=== PATIENT | female | born 1935 | race Caucasian/White ===

== ENCOUNTER 2017-03-21 22:02 | Outpatient (CLI) | payer MEDICARE, OTHER | END 2017-03-21 22:03 | disposition critical access hospital (66) | LOC: EMS 22:02 | PROVIDERS: ATTEND Surgery | DX: R51 Headache (principal); R29.810 Facial weakness; R47.81 Slurred speech | CPT/HCPCS: A0425; A0427 ==

== ENCOUNTER 2017-03-21 22:22 | Inpatient (IN) | payer MEDICARE, OTHER ==
--- NOTE | 2017-03-21 22:21 | ED Physician Documentation ---
PD HPI FOCAL NEURO - Stated complaint Stated Complaint: SLURRED SPEECH, LEFT FACIAL DROOP - History obtained from History obtained from: Patient, Family (son), EMS - History of Present Illness Timing - onset: Unknown (see below regarding timeframe) Time of symptom onset unknown: Time of onset unknown Severity of deficit: Mild Weakness: Face Baseline status: positive: A&OX3, ambulatory, indep Similar symptoms before: Has not had sx before Recently seen: Not recently seen - Additional information Additional information: Patient's son last saw patient at her baseline at 9 AM today before he went to work. Upon returning home 9:15 PM, he found his mother (patient) was acting oddly; answering questions slowly, making references to people that weren't there. Medics perceived a left facial droop which appears to have resolved by the time of my evaluation. Patient c/o frontal headache, mild chest discomfort that is midline without radiation. Review of Systems Constitutional: reports: Reviewed and negative Eyes: reports: Reviewed and negative Ears: reports: Reviewed and negative Nose: reports: Reviewed and negative Throat: reports: Reviewed and negative Cardiac: reports: Chest pain / pressure. denies: Palpitations Respiratory: reports: Reviewed and negative GI: reports: Reviewed and negative : reports: Reviewed and negative Skin: reports: Reviewed and negative Musculoskeletal: reports: Reviewed and negative Neurologic: reports: Confused, Altered mental status, Headache. denies: Generalized weakness, Focal weakness, Numbness PD PAST MEDICAL HISTORY - Past Medical History Past Medical History: Yes Other Past Medical History: "prediabetes" - Past Surgical History Past Surgical History: No - Present Medications Home Medications: Ambulatory Orders Medication Instructions Recorded Confirmed Naproxen Sodium [Aleve] 220 mg PO BID PRN 03/22/17 03/22/17 - Allergies Allergies/Adverse Reactions: Allergies Allergy/AdvReac Type Severity Reaction Status Date / Time Sulfa (Sulfonamide Allergy Unknown Verified 03/02/15 14:09 Antibiotics) - Living Situation Living Situation: reports: With family Living Arrangement: reports: At home - Social History Does the pt smoke?: No PD ED PE NORMAL - Vitals Vital signs reviewed: Yes - General General: Alert and oriented X 3, No acute distress, Well developed/nourished - HEENT HEENT: Atraumatic, PERRL, EOMI, Moist mucous membranes - Neck Neck: Supple, no meningeal sign - Cardiac Cardiac: RRR, No murmur - Respiratory Respiratory: No respiratory distress, Clear bilaterally - Abdomen Abdomen: Soft, Non tender - Back Back: No CVA TTP - Derm Derm: Normal color, Warm and dry - Extremities Extremities: No edema - Neuro Neuro: Alert and oriented X 3, real estate developer 2-12 intact, No motor deficit, No sensory deficit, Normal speech NIHSS - Level of Consciousness Level of consciousness: (0) Alert, Keenly responsive LOC Questions: (0) Answers both Q's correct - Gaze Best Gaze: (0) Normal - Visual Visual: (0) No loss - Facial Palsy Facial Palsy: (0) Normal, symmetrical movement - Motor Arms (both separate) Motor Arm (right): (0) No drift Motor Arm (left): (0) No drift - Motor Legs (both separate) Motor Leg (right): (1) Drift Motor Leg (left): (1) Drift - Limb Ataxia Limb Ataxia: (0) Absent - Sensory Sensory: (0) Normal - Best Language Best Language: (0) No aphasia - Dysarthria Dysarthria: (0) Normal - Extinction and Inattention (formally neg Extinction and inattention: (0) No abnormality Results - Vitals Vitals: Vital Signs - 24 hr 03/21/17 22:23 Temperature 36.6 C Heart Rate 86 Respiratory 18 Rate Blood Pressure 190/83 H O2 Saturation 98 Oxygen O2 Source Room air - EKG (time done) No standard instances Rate: Rate (enter#) (81) Rhythm: Atrial fibrillation [place]: Normal QRS: Normal Ischemia: Normal ST segments - Labs Labs: Laboratory Tests 03/21/17 03/21/17 03/21/17 23:07 23:39 23:39 WBC 9.5 RBC 4.62 Hgb 13.5 Hct 39.5 MCV 85.5 MCH 29.1 MCHC 34.1 RDW 14.9 Plt Count 186 MPV 7.8 L Neut # 6.5 Lymph # 2.2 [place] # 0.7 Eos # 0.1 Baso # 0.1 Absolute Nucleated RBC 0.00 Nucleated RBCs 0.0 PT INR APTT Sodium 135 Potassium 3.8 Chloride 98 L Carbon Dioxide 28 Anion Gap 9.0 BUN 18 Creatinine 1.4 H Estimated GFR (MDRD) 36 L Glucose 273 H Calcium 9.3 Troponin I Urine Color LT. YELLOW Urine Clarity CLOUDY Urine pH 6.0 Ur Specific [place] <=1.005 Urine Protein 30 H Urine Glucose (UA) 100 H Urine Ketones NEGATIVE Urine Occult Blood TRACE-INTA Urine Nitrite NEGATIVE Urine Bilirubin NEGATIVE Urine Urobilinogen 0.2 (NORMAL) Ur Leukocyte Esterase SMALL H Urine RBC 0-5 Urine WBC 11-25 H Urine WBC Clumps PRESENT Ur Squamous Epith Cells FEW Squamous Urine Bacteria Moderate H Ur Microscopic Review INDICATED Urine Culture Comments INDICATED 03/21/17 03/21/17 23:39 23:39 WBC RBC Hgb Hct MCV MCH MCHC RDW Plt Count MPV Neut # Lymph # [place] # Eos # Baso # Absolute Nucleated RBC Nucleated RBCs PT 12.6 INR 1.1 APTT 25.1 Sodium Potassium Chloride Carbon Dioxide Anion Gap BUN Creatinine Estimated GFR (MDRD) Glucose Calcium Troponin I < 0.04 Urine Color Urine Clarity Urine pH Ur Specific [place] Urine Protein Urine Glucose (UA) Urine Ketones Urine Occult Blood Urine Nitrite Urine Bilirubin Urine Urobilinogen Ur Leukocyte Esterase Urine RBC Urine WBC Urine WBC Clumps Ur Squamous Epith Cells Urine Bacteria Ur Microscopic Review Urine Culture Comments - Rads (name of study) chest xray Radiology: Prelim report reviewed, See rad report CT head Radiology: Prelim report reviewed, See rad report PD MEDICAL DECISION MAKING - ED course Complexity details: reviewed results, re-evaluated patient, considered differential, d/w patient, d/w family ED course: On reevaluation, patient is removing cardiac leads and continues to do so when I ask her to please leave them in place. She is hypokinetic, answers questions slowly, quietly, and sometimes does not answer my questions at all. She does not appear angry or upset; possibly confused, frequently looks around the room during conversation. Her son is able to redirect her and get her to stop taking off the leads and lie back down on the stretcher. Patient told the ED RN that she (patient) was in the ED to visit a relative who is in the hospital; patient' s son says this relative has been for some time now. Thus, patient's mental status is fluctuating in how altered it is. Departure - Departure Disposition: ED Place in Observation Clinical Impression: Altered mental status Qualifiers: Altered mental status type: unspecified Qualified Code(s): R41.82 - Altered mental status, unspecified Urinary tract infection Qualifiers: Urinary tract infection type: acute cystitis Hematuria presence: without hematuria Qualified Code(s): N30.00 - Acute cystitis without hematuria Atrial fibrillation Qualifiers: Atrial fibrillation type: unspecified Qualified Code(s): I48.91 - Unspecified atrial fibrillation Condition: Stable Discharge Date/Time: 03/22/17 02:03
--- NOTE | 2017-03-21 23:01 | XRAY Preliminary Report ---
Exam: XR Chest 2 View PA/LAT IMPRESSION: 1. Large lung volumes consistent with emphysema. 2. Minimal bibasilar atelectasis is unchanged. 3. No acute abnormality. [facility] SITE ID: [id number]
--- NOTE | 2017-03-21 23:03 | XRAY Report ---
EXAM: CHEST RADIOGRAPHY EXAM DATE: 03/21/2017 10:52 PM. CLINICAL HISTORY: Chest pain. COMPARISON: 03/02/2015. TECHNIQUE: 2 views. FINDINGS: Lungs/Pleura: Large lung volumes consistent with emphysema. Minimal bibasilar atelectasis. No pleural effusion. No pneumothorax. Mediastinum: Heart and mediastinal contours are unremarkable. Other: None. IMPRESSION: 1. Large lung volumes consistent with emphysema. 2. Minimal bibasilar atelectasis is unchanged. 3. No acute abnormality. [facility] Referring Provider Line: [phone] SITE ID: [id number]
--- NOTE | 2017-03-21 23:17 | CT Preliminary Report ---
Exam: CT Head W/O IMPRESSION: Generalized age-related cortical atrophic changes without evidence of acute intracranial abnormality. [facility] SITE ID: [id number]
--- NOTE | 2017-03-21 23:20 | CT Report ---
EXAM: CT HEAD EXAM DATE: 03/21/2017 10:53 PM. CLINICAL HISTORY: Altered mental status, fever. COMPARISON: None. TECHNIQUE: Multiaxial CT images were obtained from the foramen magnum to the vertex. IV contrast: Non e. Reformats: Coronal. In accordance with CT protocol optimization, one or more of the following dose reduction techniques w ere utilized for this exam: automated exposure control, adjustment of mA and/or KV based on patient s ize, or use of iterative reconstructive technique. FINDINGS: Parenchyma: No intraparenchymal hemorrhage. No evidence of mass, midline shift, or CT findings of acu te infarction. Morris-white differentiation is distinct. Extraaxial Spaces: Normal for age. No subdural or epidural collections identified. Ventricles: The ventricles and cortical sulci are mildly enlarged, consistent with age-related tissue loss. Sinuses: Postsurgical changes from cataract extraction are noted in the left globe. The paranasal and mastoid sinuses are unremarkable. Bones: No evidence of fracture or calvarial defect. Other: Mild diffuse chronic microangiopathic white matter changes are evident. Mild intracranial athe rosclerosis is noted. IMPRESSION: Generalized age-related cortical atrophic changes without evidence of acute intracranial abnormality. [facility] Referring Provider Line: [phone] SITE ID: [id number]
[2017-03-21 23:29] LABS: BILIRUBIN,URINE NEGATIVE (NEGATIVE)
[2017-03-21 23:30] LABS: UA w/ MICROSCOPIC CHARGE YES
[2017-03-21 23:41] LABS: UR CULTURE IF IND INDICATED
[2017-03-21 23:50] LABS: BASOPHILS # (AUTO) 0.1 10^3/uL (0.0-0.1); EOSINOPHILS # (AUTO) 0.1 10^3/uL (0.0-0.7); EOSINOPHILS % (AUTO) 1.1 %; HCT - HEMATOCRIT 39.5 % (37.0-47.0); HGB - HEMOGLOBIN 13.5 g/dL (12.0-16.0); LYMPHOCYTES # (AUTO) 2.2 10^3/uL (1.5-3.5); LYMPHOCYTES % (AUTO) 22.9 %; MEAN CORPUSCULAR HEMOGLOBIN 29.1 pg (27.0-31.0); MEAN CORPUSCULAR HGB CONC 34.1 g/dL (32.0-36.0); MEAN CORPUSCULAR VOLUME 85.5 fL (81.0-99.0); MEAN PLATELET VOLUME 7.8 fL (7.9-10.8); MONOCYTES # (AUTO) 0.7 10^3/uL (0.0-1.0); MONOCYTES % (AUTO) 7.1 %; NEUTROPHILS # (AUTO) 6.5 10^3/uL (1.5-6.6); NEUTROPHILS % (AUTO) 67.9 %; RED BLOOD COUNT 4.62 10^6/uL (4.20-5.40); RED CELL DISTRIBUTION WIDTH 14.9 % (12.0-15.0); UNCORRECTED WHITE BLOOD COUNT 9.5 x10^3/uL; WHITE BLOOD COUNT 9.5 x10^3/uL (4.8-10.8)
[2017-03-21 23:56] LABS: CALCIUM 9.3 mg/dL (8.5-10.3); CREATININE 1.4 mg/dL (0.4-1.0); POTASSIUM 3.8 mmol/L (3.5-5.0)
[2017-03-22 00:03] LABS: INR 1.1 (0.8-1.2); PT - PROTHROMBIN TIME 12.6 secs (9.9-12.6)
[2017-03-22 00:10] LABS: PARTIAL THROMBOPLASTIN TIME 25.1 secs (24.9-33.3)
[2017-03-22] MEDS ORDERED: cefTRIAXone 1 GM in SODIUM CHLORIDE 0.9% MINIBAG 100 ML IV STA (01:04)
[2017-03-22] MEDS ORDERED: oxyCODONE 5 MG TABLET PO PRN (01:10)
[2017-03-22] MEDS ORDERED: ONDANSETRON 4 MG/2 ML VIAL IVP PRN (01:10)
[2017-03-22] MEDS ORDERED: SODIUM CHLORIDE FLUSH 0.9% 10 ML SYRINGE IVP PRN (01:10)
[2017-03-22] MEDS ORDERED: hydrALAZINE INJ 20 MG/ML VIAL IVP PRN (01:16)
[2017-03-22] MEDS ORDERED: cefTRIAXone 1 GM VIAL ONE (01:30)
[2017-03-22] MEDS ORDERED: SODIUM CHLORIDE 0.9% MINIBAG 100 ML IV ONE (01:30)
[2017-03-22 01:48] LABS: HEMOGLOBIN A1C 0.96 g/dL
[2017-03-22] MEDS: SODIUM CHLORIDE 0.9% 1,000 ML IV SCH ×3 (02:21→13:54)
--- NOTE | 2017-03-22 02:22 | HISTORY & PHYSICAL EXAMINATION ---
Chief Complaint - Chief Complaint Chief Complaint: altered mental status History of Present Illness - Admitted From Admitted From:: emergency department - History Obtained From Records Reviewed: yes History obtained from: patient and patient's son Exam Limitations: poor historian secondary to altered mental status - History of Present Illness HPI Comment/Other: Patient is an 81-year-old female with a past medical history significant for diabetes not on any treatment, osteoarthritis of the shoulder and hip on daily Aleve who does not regularly see a doctor presents to the emergency room accompanied by her son who states that she has had altered mental status since this evening. The history is mostly provided by the patient's son as the patient was confused. The patient's son states that the patient was in her normal state of health at 10 AM this morning when he left the house. He states he returned home at 9 PM this evening and noticed his mom was very confused. He states that he would ask her questions and she will be very slow to respond. She would respond with answers that often did not make any sense. He states that she almost looked as though she was in a daze. He states that she was staring off into space. He describes it as "she appeared to be stone". He states he did not notice any facial droop and she did not have any focal weakness. He states that the only thing she complained of was a headache. He states that she was very slow to move. He states at 9:30 he called 911 because this was very odd for her. He states that she has not been complaining of any cough, fever, chills, urinary symptoms, abdominal pain, and he has not noted any nausea vomiting or diarrhea over the last several days. He states that she was in her normal state of health this morning. The patient herself denies any problems aside from a frontal headache. She cannot tell me how long it's been going on but she states it hurts. The patient's son states that his mom asked him earlier how long it had been since he saw his neighbor who 6 months ago. Also when I asked the patient why she was at the hospital she stated that she was here to see a family member whom her son stated had also many years ago. The son states that this is nothing like her norm. He stated that she does tend to be forgetful but she is fully aware that these people have . He states that she is completely independent she still performs all her ADLs independently and she still drives. On presentation to the emergency department the patient was afebrile and vital signs were normal aside from the fact that her blood pressure was very elevated at 190/83. The patient's lab work revealed a normal WBC, normal hemoglobin, normal INR and normal electrolytes aside from slightly elevated creatinine of 1.4 and a glucose of 273. The patient's troponin was negative. Her UA did have small leukocyte Estrace, 11-25 WBCs and moderate bacteria. The patient's CT head showed age-related cortical atrophic changes without evidence of acute intracranial abnormality. The patient's chest x-ray reveals large lung volumes consistent with emphysema but no acute abnormality. The patient's mentation did not improve back to her baseline during the time she spent in the emergency department. She was started on IV antibiotics for treatment of a urinary tract infection. She was placed in observation for acute encephalopathy and will be monitored overnight. Review of Systems - Constitutional Constitutional: denies: Fatigue, Fever, Chills, Malaise, Weakness, Poor appetite , Diaphoresis, Night sweats, Weight gain, Weight loss - Eyes Eyes: denies: Pain, Irritation, Amaurosis, Blurred vision, Spots in vision, Field loss, Vision loss, Dipolpia - Ears, Nose & Throat Ears, Nose & Throat: denies: Ear pain, Hearing loss, Hearing aids, Tinnitus, Vertigo, Nasal pain, Nasal discharge, Nosebleeds, Nasal obstruction, Nasal congestion, Postnasal drainage, Sore throat, Hoarseness, Mouth lesions - Cardiovascular Cariovascular: denies: Irregular heart rate, Palpitations, Chest pain, Edema, Lightheadedness, Syncope, Exertional dyspnea, Decr. exercise tolerance, Orthopnea - Respiratory Respiratory: denies: Cough, Sputum production, Wheezing, Snoring, Hemoptysis, Orthopnea, SOB at rest, SOB with exertion, Pleuritic pain - Gastrointestinal Gastrointestinal: denies: Abdominal pain, Abdominal distention, Constipation, Diarrhea, Change in bowel habits, Black stools, Bloody stools, Nausea, Vomiting , Bile emesis, Coffee grounds emesis, Poor appetite - Genitourinary Genitourinary: denies: Dysuria, Frequency, Urgency, Hematuria, Nocturia - Musculoskeletal Musculoskeletal: reports: Muscle aches, Joint pain. denies: Muscle pain, Back pain, Stiffness, Limited range of motion, Muscle weakness, Joint swelling - Integumentary Integumentary: denies: Rash, Pruritis, Lesions, Dryness, Pigment changes, Nail changes - Neurological Neurological: reports: Headache (Frontal), Memory problems, Other (confusion). denies: General weakness, Focal weakness, Dizziness, Abnormal gait, Seizures, Slurred speech - Psychiatric Psychiatric: denies: Depression, Anxiety, Delusions - Endocrine Endocrine: denies: Polyuria, Polydypsia, Polyphagia, Intolerance to cold, Intolerance to heat - Hematologic/Lymphatic Hematologic/Lymphatic: denies: Anemia, Bruising History - Past Medical History Cardiovascular: reports: Hypertension Respiratory: reports: None Neuro: reports: None Endocrine/Autoimmune: reports: Type 2 diabetes GI: reports: None COW BUYER: reports: None : reports: None HEENT: reports: None Psych: reports: None Musculoskeletal: reports: Osteoarthritis Derm: reports: None MRSA Hx?: No Other Past Medical History: 1. Diabetes not on any treatment. 2. Chronic kidney disease. 3. Osteoarthritis shoulder and hip. 4. Atrial fibrillation not on Coumadin or rate control medication. 5. Hypertension - Past Surgical History General: reports: Cholecystectomy, Appendectomy /COW BUYER: reports: Hysterectomy HEENT: reports: Tonsil/Adenoidectomy - Family & Social History Family History: Mother: CVA/TIA (Stroke in 80s), Father: CAD, Brother: (Old age) Family History Comment/Other: The patient's mother of a stroke in her 80s. The patient's father of an [place]. Her brother of old age. There is no family history of cancer or diabetes Living arrangement: At home Living Situation: With family (Son) Social History Notes: Patient lives and [place] with her son. Her son moved in with her 2 years ago he previously lived in [place]. Patient grew up in [place] she also lived in [place] and in [place] for some time. She was for over 50 years and is now her 3-1/2 years ago. She is fully independent, performs all her ADLs independently and still drives. She has 2 sons one of whom lives in [facility] the other lives with her. The patient has never smoked she rarely drinks alcohol and denies any illicit drug use. - Substance History Use: Uses substance without health or social issues: NONE Abuse: Recurrent use of substance despite neg consequences: NONE Dependence: Experiences withdrawal or developed tolerances: NONE - POLST Patient has POLST: No POLST Status: Full Code Meds/Allgy - Home Medications Home Medications: Ambulatory Orders Medication Instructions Recorded Confirmed Naproxen Sodium [Aleve] 220 mg PO BID PRN 03/22/17 03/22/17 - Allergies Allergies/Adverse Reactions: Allergies Allergy/AdvReac Type Severity Reaction Status Date / Time Sulfa (Sulfonamide Allergy Unknown Verified 03/02/15 14:09 Antibiotics) Exam - Vital Signs Reviewed Vital Signs: Yes Vital Signs: Vital Signs x48h Pulse Resp BP Pulse Ox 03/22/17 02:18 210/71 H 03/22/17 01:45 85 18 205/88 H 94 - Physical Exam General Appearance: positive: Alert, Other (Patient is confused, she thinks she is in the hospital to see a relative who has already . She can't tell me the year, where she is, and her name. At time she is slow to process and slow to answer questions.) Eyes Bilateral: positive: Normal inspection, PERRL, EOMI, No lid inflammation, Conjunctivae nml, No scleral icterus ENT: positive: ENT inspection nml, Pharynx nml, No signs of dehydration. negative: Purulent nasal drainage, Pharyngeal erythema, Oral lesions Neck: positive: Nml inspection, Thyroid nml, No JVD, Trachea midline. negative : Thyromegaly, Lymphadenopathy (R), Lymphadenopathy (L) Respiratory: positive: Chest non-tender, No respiratory distress, Breath sounds nml. negative: Wheezes, Rales, Rhonchi Cardiovascular: positive: No murmur, No gallop, Irregularly irregular Peripheral Pulses: positive: 2+ Abdomen: positive: Non-tender, No organomegaly, Nml bowel sounds, No distention. negative: Guarding, Rebound, Hepatomegaly Back: positive: Nml inspection. negative: CVA tenderness (R), CVA tenderness (L ) Skin: positive: Color nml, No rash, Warm. negative: Cyanosis, Pallor Extremities: positive: Non-tender, Full ROM, Nml appearance, No pedal edema Neurologic/Psychiatric: positive: Oriented x3, CN's nml (2-12), Motor nml, Sensation nml, Mood/affect nml, Other (Slow to answer questions. Confused. Poor memory.) Conclusion/Plan - Problem List (1) Acute encephalopathy Conclusion/Plan: Patient appears to have waxing and waning encephalopathy. Which appears to be worse at times. She does not appear to have any focal neurologic deficits. Although according to the paramedics she did have a slight left facial droop which had completely resolved by the time she came into the emergency department. The patient appears to be confused and at times is slow to process and slow to answer questions. She does complain of a frontal headache. The etiology of the patient's acute encephalopathy is not completely obvious as she did not have any major electrolyte abnormalities. She does not have a focal neurologic deficit. She does appear to have a UTI however she does not have a leukocytosis or fever or any signs of sepsis. She does have an elevated blood sugar but has a history of diabetes and does not appear to be in DKA. She is very hypertensive on presentation to the emergency department and continues to be hypertensive on presentation to the medical fuller. It is possible that the patient could have hypertensive encephalopathy especially given her frontal headache. The patient has untreated diabetes and possibly also has untreated hypertension and therefore has risk factors for TIA/stroke. It is possible that the patient symptoms are secondary to TIA or stroke. The patient's CT head was negative and chest x-ray was negative.Patient could also be having subclinical seizures. Plan: Place patient in observation ASA, lipitor, lipid profile Neurochecks Treat for UTI with IV ceftriaxone Give IV fluids Check TSH, B12, folate, RPR Check U. tox CTA head and neck, MRI of brain Echocardiogram Consider LP if patient is not improving Consider EEG and neurology consultation if not improving (2) Urinary tract infection Conclusion/Plan: Patient presented with acute encephalopathy and was found to have positive UA although she denies any urinary symptoms. She has normal WBC and no fevers. Plan: Treat with IV ceftriaxone Await urine culture Qualifiers: Urinary tract infection type: acute cystitis Hematuria presence: without hematuria Qualified Code(s): N30.00 - Acute cystitis without hematuria (3) Hypertension Conclusion/Plan: Patient's blood pressure is very elevated in the emergency department and continued to be elevated on presentation to [facility] with systolic blood pressure greater than 200. This could be secondary to undiagnosed hypertension or secondary to ongoing stroke. Patient's encephalopathy could be secondary to hypertensive emergency but could also be secondary to a TIA or stroke and hypertension could also be secondary to TIA or stroke. Plan: Place patient on IV hydralazine when necessary to maintain blood pressure less than 190 systolic and 105 diastolic This will allow for permissive hypertension and should also bring blood pressure down to an adequate range. Monitor Consider starting oral antihypertensive (4) Diabetes Conclusion/Plan: Patient has history of diabetes but has never been on any medications. Patient does not regularly followup with her PCP. On presentation patient's blood sugar is elevated at 273. Hemoglobin A1c is 8.1 Plan: Diabetic diet Diabetic education once mental status improves Sliding scale insulin Blood sugar checks a.c. at bedtime Patient will need to be started on metformin at discharge Qualifiers: Diabetes mellitus type: type 2 (5) Atrial fibrillation Conclusion/Plan: Patient appears to be in atrial fibrillation on EKG although rate is controlled. There do not appear to be any P waves and she has an irregular rhythm. Plan: Monitor on telemetry Echocardiogram If patient has had a stroke or TIA will need to consider anticoagulation Patient will need outpatient cardiology followup Qualifiers: Atrial fibrillation type: unspecified Qualified Code(s): I48.91 - Unspecified atrial fibrillation (6) CKD (chronic kidney disease) Conclusion/Plan: Patient's creatinine is 1.4 on presentation GFR is 36 She has a CKD stage III Likely secondary to diabetes and possibly hypertension Plan: Monitor creatinine Avoid nephrotoxic agents Give IV fluids Qualifiers: Chronic kidney disease stage: stage 3 (moderate) Qualified Code(s): N18.3 - Chronic kidney disease, stage 3 (moderate) (7) Prophylactic use of low molecular weight heparin for venous thromboembolism Conclusion/Plan: Placed on Lovenox while hospitalized - Lab Results Lab results reviewed: Yes Shyam Bones: 03/21/17 23:39 03/21/17 23:39 - Diagnostic Imaging Results Diagnostic Imaging Results: positive: Final report reviewed - EKG Results EKG Interpreted Independently: Yes Issues/Core Measures - Anticipated LOS Anticipated Stay Length: Less than 2 midnights - DVT/VTE - Prophylaxis VTE/DVT Prophylaxis med ordered at admit?: Yes
[2017-03-22] MEDS: SODIUM CHLORIDE FLUSH 0.9% 10 ML SYRINGE IVP SCH ×3 (05:10→21:59)
[2017-03-22 05:44] LABS: BASOPHILS # (AUTO) 0.1 10^3/uL (0.0-0.1); BASOPHILS % (AUTO) 0.9 %; EOSINOPHILS # (AUTO) 0.1 10^3/uL (0.0-0.7); EOSINOPHILS % (AUTO) 1.4 %; HCT - HEMATOCRIT 39.4 % (37.0-47.0); HGB - HEMOGLOBIN 13.5 g/dL (12.0-16.0); LYMPHOCYTES # (AUTO) 2.5 10^3/uL (1.5-3.5); LYMPHOCYTES % (AUTO) 24.7 %; MEAN CORPUSCULAR HEMOGLOBIN 29.3 pg (27.0-31.0); MEAN CORPUSCULAR HGB CONC 34.4 g/dL (32.0-36.0); MEAN CORPUSCULAR VOLUME 85.2 fL (81.0-99.0); MEAN PLATELET VOLUME 8.1 fL (7.9-10.8); MONOCYTES # (AUTO) 0.8 10^3/uL (0.0-1.0); MONOCYTES % (AUTO) 7.7 %; NEUTROPHILS # (AUTO) 6.6 10^3/uL (1.5-6.6); NEUTROPHILS % (AUTO) 65.3 %; RED BLOOD COUNT 4.62 10^6/uL (4.20-5.40); RED CELL DISTRIBUTION WIDTH 14.5 % (12.0-15.0); UNCORRECTED WHITE BLOOD COUNT 10.1 x10^3/uL; WHITE BLOOD COUNT 10.1 x10^3/uL (4.8-10.8)
[2017-03-22 05:48] LABS: INR 1.1 (0.8-1.2); PT - PROTHROMBIN TIME 12.6 secs (9.9-12.6)
[2017-03-22 05:57] LABS: ALBUMIN/GLOBULIN RATIO 1.3 (1.0-2.2); BILIRUBIN,TOTAL 0.9 mg/dL (0.2-1.0); CALCIUM 9.3 mg/dL (8.5-10.3); CREATININE 1.3 mg/dL (0.4-1.0); POTASSIUM 3.5 mmol/L (3.5-5.0); TOTAL PROTEIN 7.4 g/dL (6.7-8.2)
[2017-03-22 06:03] LABS: CHOL/HDL RATIO 5.1 (<4.4); CHOLESTEROL 182 mg/dL; HDL CHOLESTEROL 36 mg/dL; LDL/HDL RATIO 3.3 (<4.4); TRIGLYCERIDES 139 mg/dL; VLDL CHOLESTEROL 28 mg/dL
[2017-03-22] MEDS ORDERED: PANTOPRAZOLE 40 MG TABLET PO SCH (07:00)
--- NOTE | 2017-03-22 07:27 | PROVIDER PROGRESS NOTE ---
Subjective - Prog Note Date Prog Note Date: 03/22/17 Prog Note Time: 07:24 - Subjective Subjective: H/P, data reviewed I'm at [place], 2016 (later in day says its 1997 or er year identifies son, Current Medications - Current Medications Current Medications: Active Medications Generic Name Dose Route Start Last Admin Trade Name Freq PRN Reason Stop Dose Admin Acetaminophen 650 mg 03/22/17 01:10 Tylenol PO Q4HR PRN Pain 1 to 4 Aspirin 325 mg 03/22/17 08:00 She PO DAILYWM OSEAS Atorvastatin Calcium 80 mg 03/22/17 21:00 Lipitor PO QPM OSEAS Enoxaparin Sodium 40 mg 03/22/17 09:00 Lovenox SUBQ DAILY OSEAS Hydralazine HCl 10 mg 03/22/17 01:16 03/22/17 02:18 Apresoline Inj IVP 10 mg Q6H PRN Administration Hypertension Sodium Chloride 1,000 mls @ 100 mls/hr 03/22/17 02:00 03/22/17 02:21 Normal Saline 0.9% IV 100 mls/hr .Q10H OSEAS Administration Ceftriaxone Sodium 1 gm/ 100 mls @ 200 mls/hr 03/23/17 01:00 Sodium Chloride IV Q24H OSEAS Insulin Aspart 1 - 5 unit 03/22/17 08:00 Novolog SUBQ 0800,1200,1700,2100 OSEAS Protocol Ondansetron HCl 4 mg 03/22/17 01:10 Zofran Inj IVP Q6HR PRN Nausea / Vomiting Oxycodone HCl 5 mg 03/22/17 01:10 Roxicodone PO Q4HR PRN Pain 5 to 7 Pantoprazole Sodium 40 mg 03/22/17 07:00 03/22/17 06:11 Protonix PO 40 mg QDAC OSEAS Administration Polyethylene Glycol 17 gm 03/22/17 09:00 Miralax PO DAILY OSEAS Saccharomyces Boulardii 250 mg 03/22/17 08:00 Florastor PO BIDWM OSEAS Sodium Chloride 10 ml 03/22/17 01:10 Normal Saline Flush 0.9% IVP PRN PRN NEEDED PER PROVIDER ORDERS Sodium Chloride 10 ml 03/22/17 06:00 03/22/17 05:10 Normal Saline Flush 0.9% IVP Not Given Q8HR OSEAS Naproxen Sodium [Aleve] 220 mg PO BID PRN 03/22/17 Objective - Vital Signs/Intake & Output Reviewed Vital Signs: Yes Vital Signs: Vital Signs x48h Temp Pulse Pulse Pulse Resp BP BP 03/22/17 05:39 36.8 C 61 18 180/84 H 03/22/17 03:17 200/82 H 03/22/17 02:57 188/72 H 03/22/17 02:48 190/70 H 03/22/17 02:43 193/77 H 03/22/17 02:40 197/76 H 03/22/17 02:34 182/80 H 03/22/17 02:26 64 170/92 H 03/22/17 02:24 36.8 C 65 18 210/71 H 03/22/17 02:18 210/71 H 03/22/17 01:45 85 18 205/88 H Pulse Ox 03/22/17 05:39 97 03/22/17 03:17 03/22/17 02:57 03/22/17 02:48 03/22/17 02:43 03/22/17 02:40 03/22/17 02:34 03/22/17 02:26 03/22/17 02:24 98 03/22/17 02:18 03/22/17 01:45 94 Intake & Output: Intake & Output 03/19/17 03/20/17 03/21/17 03/22/17 23:59 23:59 23:59 23:59 Intake Total 487 Balance 487 - Objective Neurologic/Psychiatric: positive: Other (awake, alert, slow to respond to some questions, answers other questions quickly said it was november, but 2016, [facility] president, [facility] previously, in [place] R gaze preference, strenght exam (B hand braid maker, shoulder adduction/abduction, hip flexion extension, dorsi plantar flexion AND shoulder shrug all with subtle reduction on L (5/5 R, 4/5 L) extraocular movements intact, pupils equal and reactive no obvius facial droop) - Lab Results Fish Bones: 03/23/17 05:30 03/23/17 05:30 Other Labs: Lab Results x24hrs 03/22/17 03/22/17 03/22/17 Range/Units 05:05 05:05 05:05 WBC (4.8-10.8) x10^3/uL RBC (4.20-5.40) 10^6/uL Hgb (12.0-16.0) g/dL Hct (37.0-47.0) % MCV (81.0-99.0) fL MCH (27.0-31.0) pg MCHC (32.0-36.0) g/dL RDW (12.0-15.0) % Plt Count (130-450) 10^3/uL MPV (7.9-10.8) fL Neut # (1.5-6.6) 10^3/uL Lymph # (1.5-3.5) 10^3/uL Pettis # (0.0-1.0) 10^3/uL Eos # (0.0-0.7) 10^3/uL Baso # (0.0-0.1) 10^3/uL Absolute Nucleated RBC x10^3/uL Nucleated RBCs /100WBC PT (9.9-12.6) secs INR (0.8-1.2) Sodium 140 (135-145) mmol/L Potassium 3.5 (3.5-5.0) mmol/L Chloride 102 (101-111) mmol/L Carbon Dioxide 25 (21-32) mmol/L Anion Gap 13.0 (6-13) BUN 15 (6-20) mg/dL Creatinine 1.3 H (0.4-1.0) mg/dL Estimated GFR (MDRD) 39 L (>89) Glucose 178 H (70-100) mg/dL Glycated Hemoglobin (4.6-6.2) % Estim Average Glucose (70-100) Calcium 9.3 (8.5-10.3) mg/dL Total Bilirubin 0.9 (0.2-1.0) mg/dL AST 21 (10-42) IU/L ALT 14 (10-60) IU/L Alkaline Phosphatase 63 (42-121) IU/L Total Protein 7.4 (6.7-8.2) g/dL Albumin 4.2 (3.2-5.5) g/dL Globulin 3.2 (2.1-4.2) g/dL Albumin/Globulin Ratio 1.3 (1.0-2.2) Triglycerides 139 ( - 149) mg/dL Cholesterol 182 ( - 199) mg/dL LDL Cholesterol, Calc 118 ( - 129) mg/dL VLDL Cholesterol 28 mg/dL HDL Cholesterol 36 L (60 - ) mg/dL LDL/HDL Ratio 3.3 (<4.4) Cholesterol/HDL Ratio 5.1 (<4.4) TSH 2.70 (0.34-5.60) uIU/mL 03/22/17 03/22/17 03/22/17 Range/Units 05:05 05:05 01:20 WBC 10.1 (4.8-10.8) x10^3/uL RBC 4.62 (4.20-5.40) 10^6/uL Hgb 13.5 (12.0-16.0) g/dL Hct 39.4 (37.0-47.0) % MCV 85.2 (81.0-99.0) fL MCH 29.3 (27.0-31.0) pg MCHC 34.4 (32.0-36.0) g/dL RDW 14.5 (12.0-15.0) % Plt Count 196 (130-450) 10^3/uL MPV 8.1 (7.9-10.8) fL Neut # 6.6 (1.5-6.6) 10^3/uL Lymph # 2.5 (1.5-3.5) 10^3/uL Pettis # 0.8 (0.0-1.0) 10^3/uL Eos # 0.1 (0.0-0.7) 10^3/uL Baso # 0.1 (0.0-0.1) 10^3/uL Absolute Nucleated RBC 0.00 x10^3/uL Nucleated RBCs 0.0 /100WBC PT 12.6 (9.9-12.6) secs INR 1.1 (0.8-1.2) Sodium (135-145) mmol/L Potassium (3.5-5.0) mmol/L Chloride (101-111) mmol/L Carbon Dioxide (21-32) mmol/L Anion Gap (6-13) BUN (6-20) mg/dL Creatinine (0.4-1.0) mg/dL Estimated GFR (MDRD) (>89) Glucose (70-100) mg/dL Glycated Hemoglobin 8.1 H (4.6-6.2) % Estim Average Glucose 186 H (70-100) Calcium (8.5-10.3) mg/dL Total Bilirubin (0.2-1.0) mg/dL AST (10-42) IU/L ALT (10-60) IU/L Alkaline Phosphatase (42-121) IU/L Total Protein (6.7-8.2) g/dL Albumin (3.2-5.5) g/dL Globulin (2.1-4.2) g/dL Albumin/Globulin Ratio (1.0-2.2) Triglycerides ( - 149) mg/dL Cholesterol ( - 199) mg/dL LDL Cholesterol, Calc ( - 129) mg/dL VLDL Cholesterol mg/dL HDL Cholesterol (60 - ) mg/dL LDL/HDL Ratio (<4.4) Cholesterol/HDL Ratio (<4.4) TSH (0.34-5.60) uIU/mL - Diagnostic Imaging Diagnostic Imaging Results: positive: Final report reviewed, Discussed with radiologist (MRI brain; scattered acute infacrct 6 hours to 7 days in R frontal periventricular WM and right peritrigonal WM. Distribution corrresponds to R MCA and /or R MCA watershed territories. No hemorrhage. MRA brain, neck R occlusion R MCA beginning at origin; no enhancement distal branches. TIRE SPOTTER Right ; focal high grade stenosis or occlusion distal P1 segment; Absence of R MCA flow void; concerning for occclusion lEFT: l mca ; PATENT BUT HGH GRADE STENOSIS; > 75% LUMINAL HNARROWING, MODERATE HIGH GRADE STENOSIS 50-70% LUMINAL NARROWING PROXIMAL m2 BRANCH. 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 p2 SEGMENT 50-70% LUMINAL NARROWING) Assessment/Plan - Problem List (1) Acute ischemic stroke Impression: and marquis ALSO cardioembolic after 2nd discussion w/ [place] neurologist contacted by radiologist after MRI (see under objective) 2 areas of acute stroke, as well as occlusion origin of R MCA, AND significant disease L MCAalso significant atherosclerotic disease bilateral TIRE SPOTTER's carotids < 50% bilaterally exam c/w R MCA stroke w/ L neglect and field deficit and L neglect somewhat more pronounced this afternoon have already started ASA and statin spoke with neurologist x 2 today given progressive symptoms spoke [place] again (? when to repeat CT to ensure no hemorrhagic conversion), when to start anticoag She advised CTA would help her determine better where there is flow (suggested that MRA overread the areas of no flow Radiologist Dr. Salas indicated he would not do with current GFR (this am was 39) allow permissive HTN (stopped prn hydralazine) PT., OT eval contacted ACTUARY CLERK (Lory) for eval this afternoon, son indicates she took sip water and "it went down wrong way" ACTUARY CLERK advises dysphagia mechanical diet, thins, upright w/ supervision, check for pocketing on Left, and empty mouth after meal will d/w CM in am; likely needs neuro skilled facility (3) Atrial fibrillation Impression: 12 lead EKG done this am; rate controlled afib no known prior dx echo pending today Qualifiers: Atrial fibrillation type: unspecified Qualified Code(s): I48.91 - Unspecified atrial fibrillation (4) Hypertension Impression: as above, permissive hypertension / acute stroke (5) CKD (chronic kidney disease) Impression: will recheckCr in am following IVF likely CKD from chronic untreated DM (dont know baseline but this is likely close) Qualifiers: Chronic kidney disease stage: stage 3 (moderate) Qualified Code(s): N18.3 - Chronic kidney disease, stage 3 (moderate) (6) Urinary tract infection Impression: not likely r/t her presentation on ceftriaxone f/u culture Qualifiers: Urinary tract infection type: acute cystitis Hematuria presence: without hematuria Qualified Code(s): N30.00 - Acute cystitis without hematuria
[2017-03-22] MEDS ORDERED: ASPIRIN 325 MG TABLET PO SCH (08:00)
[2017-03-22] MEDS: SACCHAROMYCES BOULARDII 250 MG CAPSULE PO SCH ×2 (08:39→20:53)
[2017-03-22] MEDS: POLYETHYLENE GLYCOL 3350 17 GM PACKET PO SCH (08:39)
[2017-03-22] MEDS: INSULIN ASPART 300 UNIT/3 ML PEN SUBQ SCH ×4 (08:42→21:57)
[2017-03-22] MEDS: ENOXAPARIN 40 MG/0.4 ML SYRINGE SUBQ SCH (08:42)
--- NOTE | 2017-03-22 11:54 | MRI Preliminary Report ---
Exam: MRI Brain W/O IMPRESSION: 1. Scattered acute infarct (6 hours to 7 days) in the right frontal periventricular white matter and right peritrigonal white matter. Distribution corresponds to right MCA and/or right MCA watershed ter ritories. No evidence of corresponding hemorrhage. 2. Absence of the right MCA flow void, concerning for occlusion. [facility] The above findings were discussed with Dr. Olsen by Dr. German Baker at 11:50 hrs on 03/22/17. SITE ID: [id number]
--- NOTE | 2017-03-22 11:56 | MRI Preliminary Report ---
Exam: MRI Angio Brain W/O (MRA) IMPRESSION: 1. Occlusion of the right MCA beginning at the ICA terminus. No reconstitution is visualized. 2. High-grade stenosis (greater than 75% luminal narrowing) and moderate to high-grade stenosis (50-7 0% luminal narrowing) of the left MCA frontal and temporal M2 trunks, respectively. 3. High-grade stenosis or occlusion of the traveling missionary bilaterally with reconstitution of distal branches, r ight greater than left. CRITICAL RESULT: The findings were discussed with Dr. Olsen at 11:50 on 03/22/2017. [facility] SITE ID: [id number]
--- NOTE | 2017-03-22 11:56 | MRI Report ---
EXAM: MRI BRAIN WITHOUT CONTRAST EXAM DATE: 03/22/2017 10:47 AM. CLINICAL HISTORY: 81-year-old woman with altered mental status and facial droop. Concern for stroke. COMPARISON: Noncontrast head CT on 03/21/2017. TECHNIQUE: Multiplanar, multisequence T1-weighted and fluid-sensitive MR sequences of the brain were performed. Sequences optimized for routine evaluation. Other: None. IV Contrast: None. FINDINGS: Parenchyma: Scattered restricted diffusion with corresponding FLAIR hyperintensity is present in the right area trigonal white matter and right posterior basal ganglia and adjacent sagastume radiata/fronta l paraventricular white matter. No evidence of corresponding hemorrhage on susceptibility weighted se quence. The remainder of the parenchyma demonstrates minimal periventricular white matter, less than commonly seen in this age group. Susceptibility weighted sequence demonstrates a remote microhemorrhage in th e right medial temporal lobe. Pituitary: Unremarkable. Ventricles and Extra-axial Spaces: Ventricles are symmetric and normal in size for age. Extra-axial s paces are unremarkable. Orbits: Unremarkable except for left-sided lens or placement surgery. Sinuses: Paranasal sinuses and mastoid air cells are clear. Major Vascular Flow Voids: The right MCA flow void is not visualized, concerning for occlusion. IMPRESSION: 1. Scattered acute infarct (6 hours to 7 days) in the right frontal periventricular white matter and right peritrigonal white matter. Distribution corresponds to right MCA and/or right MCA watershed ter ritories. No evidence of corresponding hemorrhage. 2. Absence of the right MCA flow void, concerning for occlusion. [facility] The above findings were discussed with by Dr. German Baker at 11:50 hrs on 03/22/17. Referring Provider Line: [phone] SITE ID: [id number]
--- NOTE | 2017-03-22 11:59 | MRI Report ---
EXAM MRA BRAIN EXAM DATE: 03/22/2017 10:39 AM. CLINICAL HISTORY: 81-year-old woman with facial droop and altered mental status. Concern for stroke. COMPARISON: None. TECHNIQUE: Multiplanar, multisequence MRA sequences of the brain were performed. Other: None. Post-pr ocessing: Multiplanar 3D MIP reconstructions. IV Contrast: None. FINDINGS: RIGHT: Visualized Internal Carotid Artery: Patent without significant stenosis. No evidence of aneurysm. Anterior Cerebral Artery: Patent without significant stenosis or aneurysm. Middle Cerebral Artery: There is occlusion of the right MCA beginning at the origin. No enhancement i s visualized in the distal branches. Posterior Cerebral Artery: Focal high-grade stenosis or occlusion is present in the distal P1 segment . The P2 segment is incompletely visualized, consistent with occlusion or high-grade stenosis. There is reconstitution of distal branches. Posterior Communicating Artery: Patent. No aneurysm. Visualized Vertebral Artery: Patent without significant stenosis. No evidence of dissection or aneury sm. LEFT: Visualized Internal Carotid Artery: Patent without significant stenosis. No evidence of aneurysm. Anterior Cerebral Artery: Patent without significant stenosis or aneurysm. Middle Cerebral Artery: Patent, but there is high-grade stenosis (greater than 75% luminal narrowing) of the proximal frontal M2 branch and moderate high-grade stenosis (50-70% luminal narrowing) of the proximal temporal M2 branch. No injures. Posterior Cerebral Artery: The P1 segment is not well-visualized, most likely reflecting high-grade s tenosis or occlusion given the absence of posterior communicate artery. There is irregularity of the P2 segment with 50-70% luminal narrowing. Distal branches are visualized, but smaller caliber than on the right. Posterior Communicating Artery: Not well visualized. Visualized Vertebral Artery: Patent without significant stenosis. No evidence of dissection or aneury sm. CENTRAL: Anterior Communicating Artery: Patent. No aneurysm. Basilar: Patent without significant stenosis, dissection, or aneurysm. IMPRESSION: 1. Occlusion of the right MCA beginning at the ICA terminus. No reconstitution is visualized. 2. High-grade stenosis (greater than 75% luminal narrowing) and moderate to high-grade stenosis (50-7 0% luminal narrowing) of the left MCA frontal and temporal M2 trunks, respectively. 3. High-grade stenosis or occlusion of the screening unit registered nurse bilaterally with reconstitution of distal branches, r ight greater than left. CRITICAL RESULT: The findings were discussed with Dr. Olsen at 11:50 on 03/22/2017. [facility] Referring Provider Line: [phone] SITE ID: [id number]
--- NOTE | 2017-03-22 12:01 | MRI Preliminary Report ---
Exam: MRI Angio Neck W/O (MRA) IMPRESSION: 1. Carotid and vertebral arteries are patent without significant stenosis or dissection. 2. Fine evaluation is limited on this noncontrast exam due to flow-related artifact. [facility] SITE ID: [id number]
--- NOTE | 2017-03-22 12:04 | MRI Report ---
EXAM: MR ANGIOGRAM NECK WITHOUT CONTRAST EXAM DATE: 03/22/2017 11:03 AM. CLINICAL HISTORY: 81-year-old woman with altered mental status and facial droop. Concern for stroke. COMPARISON: None. TECHNIQUE: Multiplanar, multisequence MRA sequences of the neck were performed. Other: None. Post-pro cessing: Multiplanar 3D MIP reconstructions. IV Contrast: None. Evaluation of arterial stenosis is b ased on a NASCET method of measurement. FINDINGS: RIGHT Common and Internal carotid: Patent. No dissection or significant stenosis. Flow-related artifact vasquez its fine evaluation at the bifurcation and distal cervical ICA. External Carotid: Patent. No dissection or significant stenosis. Vertebral: Patent. No dissection or significant stenosis. Flow-related artifact limits evaluation of the V3 segment. LEFT Common and Internal carotid: Patent. Apparent narrowing at the proximal ICA may reflect underlying at herosclerotic disease versus flow-related artifact, but possible narrowing is less than 50%. External Carotid: Patent. No dissection or significant stenosis. Vertebral: Patent. No dissection or significant stenosis. Flow-related artifact limits evaluation of the V3 segment. Other: Limited evaluation of the neck soft tissues is unremarkable. IMPRESSION: 1. Carotid and vertebral arteries are patent without significant stenosis or dissection. 2. Fine evaluation is limited on this noncontrast exam due to flow-related artifact. [facility] Referring Provider Line: [phone] SITE ID: [id number]
[2017-03-22] MEDS: ASPIRIN CHEW 81 MG TABLET PO SCH (12:26)
[2017-03-22] MEDS ORDERED: FUROSEMIDE 20 MG TABLET PO ONE (17:56)
[2017-03-22] MEDS ORDERED: cefTRIAXone 1 GM in SODIUM CHLORIDE 0.9% MINIBAG 100 ML IV SCH (18:00)
[2017-03-22 18:44] LABS: CALCIUM 8.9 mg/dL (8.5-10.3); CREATININE 1.5 mg/dL (0.4-1.0); POTASSIUM 3.9 mmol/L (3.5-5.0)
[2017-03-22] MEDS ORDERED: INSULIN GLARGINE 300 UNIT/3 ML PEN SUBQ SCH (21:00)
[2017-03-22] MEDS: ATORVASTATIN 40 MG TABLET PO SCH (21:42)
[2017-03-22] MEDS: PHENAZOPYRIDINE 100 MG TABLET PO SCH (21:58)
[2017-03-23] MEDS: SODIUM CHLORIDE 0.9% 1,000 ML IV SCH (01:06)
[2017-03-23] MEDS ORDERED: hydrALAZINE INJ 20 MG/ML VIAL IVP ONE (05:12)
[2017-03-23] MEDS: PHENAZOPYRIDINE 100 MG TABLET PO SCH ×2 (05:46→13:50)
[2017-03-23] MEDS: SODIUM CHLORIDE FLUSH 0.9% 10 ML SYRINGE IVP SCH ×3 (05:47→21:23)
[2017-03-23 06:08] LABS: BASOPHILS # (AUTO) 0.1 10^3/uL (0.0-0.1); BASOPHILS % (AUTO) 0.7 %; EOSINOPHILS # (AUTO) 0.3 10^3/uL (0.0-0.7); EOSINOPHILS % (AUTO) 2.5 %; HCT - HEMATOCRIT 39.6 % (37.0-47.0); HGB - HEMOGLOBIN 13.6 g/dL (12.0-16.0); LYMPHOCYTES # (AUTO) 2.9 10^3/uL (1.5-3.5); LYMPHOCYTES % (AUTO) 26.5 %; MEAN CORPUSCULAR HEMOGLOBIN 29.5 pg (27.0-31.0); MEAN CORPUSCULAR HGB CONC 34.4 g/dL (32.0-36.0); MEAN CORPUSCULAR VOLUME 85.9 fL (81.0-99.0); MEAN PLATELET VOLUME 8.1 fL (7.9-10.8); MONOCYTES # (AUTO) 0.8 10^3/uL (0.0-1.0); MONOCYTES % (AUTO) 7.8 %; NEUTROPHILS # (AUTO) 6.8 10^3/uL (1.5-6.6); NEUTROPHILS % (AUTO) 62.5 %; RED BLOOD COUNT 4.61 10^6/uL (4.20-5.40); RED CELL DISTRIBUTION WIDTH 14.7 % (12.0-15.0); UNCORRECTED WHITE BLOOD COUNT 10.9 x10^3/uL; WHITE BLOOD COUNT 10.9 x10^3/uL (4.8-10.8)
[2017-03-23 06:20] LABS: ALBUMIN/GLOBULIN RATIO 1.3 (1.0-2.2); CREATININE 1.3 mg/dL (0.4-1.0); POTASSIUM 3.7 mmol/L (3.5-5.0)
[2017-03-23] MEDS: INSULIN ASPART 300 UNIT/3 ML PEN SUBQ SCH ×4 (09:29→21:23)
[2017-03-23] MEDS: ASPIRIN CHEW 81 MG TABLET PO SCH (09:31)
[2017-03-23] MEDS: SACCHAROMYCES BOULARDII 250 MG CAPSULE PO SCH ×2 (09:31→18:55)
[2017-03-23] MEDS: POLYETHYLENE GLYCOL 3350 17 GM PACKET PO SCH (09:31)
[2017-03-23] MEDS: ENOXAPARIN 40 MG/0.4 ML SYRINGE SUBQ SCH (09:31)
--- NOTE | 2017-03-23 10:18 | PROVIDER PROGRESS NOTE ---
Subjective - Prog Note Date Prog Note Date: 03/23/17 Prog Note Time: 10:29 (late entry; seen 7:30am) - Subjective Subjective: Family thinks her color looks better today "here because I fell" later in evening ~ 5:30pm; "here because my sons were worried that there was something wrong with me" I've heard it said that I had a stroke" "I feel lethargic" (when asked if tired) identifies both sons, daughter in law Current Medications - Current Medications Current Medications: Active Medications Generic Name Dose Route Start Last Admin Trade Name Freq PRN Reason Stop Dose Admin Acetaminophen 650 mg 03/22/17 01:10 Tylenol PO Q4HR PRN Pain 1 to 4 Aspirin 81 mg 03/22/17 13:00 03/23/17 09:31 [facility] [place] Aspirin PO 81 mg DAILY OSEAS Administration Atorvastatin Calcium 80 mg 03/22/17 21:00 03/22/17 21:42 Lipitor PO 80 mg QPM OSEAS Administration Enoxaparin Sodium 40 mg 03/22/17 09:00 03/23/17 09:31 Lovenox SUBQ 40 mg DAILY OSEAS Administration Sodium Chloride 1,000 mls @ 100 mls/hr 03/22/17 02:00 03/23/17 01:06 Normal Saline 0.9% IV 100 mls/hr .Q10H OSEAS Administration Ceftriaxone Sodium 1 gm/ 100 mls @ 200 mls/hr 03/22/17 18:00 03/22/17 18:07 Sodium Chloride IV 200 mls/hr Q24H OSEAS Administration Insulin Aspart 1 - 5 unit 03/22/17 08:00 03/23/17 09:29 Novolog SUBQ 1 unit 0800,1200,1700,2100 OSEAS Administration Protocol Insulin Glargine 8 unit 03/23/17 21:00 Lantus Solostar SUBQ QPM OSEAS Lisinopril 5 mg 03/23/17 10:00 Zestril PO DAILY OSEAS Ondansetron HCl 4 mg 03/22/17 01:10 Zofran Inj IVP Q6HR PRN Nausea / Vomiting Oxycodone HCl 5 mg 03/22/17 01:10 03/22/17 23:59 Roxicodone PO 5 mg Q4HR PRN Administration Pain 5 to 7 Phenazopyridine HCl 100 mg 03/22/17 22:00 03/23/17 05:46 Pyridium PO 100 mg TID OSEAS Administration Polyethylene Glycol 17 gm 03/22/17 09:00 03/23/17 09:31 Miralax PO 17 gm DAILY OSEAS Administration Eugene Slateri 250 mg 03/22/17 08:00 03/23/17 09:31 Florastor PO 250 mg BIDWM OSEAS Administration Sodium Chloride 10 ml 03/22/17 01:10 Normal Saline Flush 0.9% IVP PRN PRN NEEDED PER PROVIDER ORDERS Sodium Chloride 10 ml 03/22/17 06:00 03/23/17 05:47 Normal Saline Flush 0.9% IVP Not Given Q8HR OSEAS Naproxen Sodium [Aleve] 220 mg PO BID PRN 03/22/17 Objective - Vital Signs/Intake & Output Reviewed Vital Signs: Yes Vital Signs: Vital Signs x48h Temp Pulse Resp BP BP Pulse Ox 03/23/17 08:59 36.3 C L 57 L 12 169/77 H 96 03/23/17 05:38 162/80 H 171/60 H 03/23/17 05:29 36.6 C 56 L 18 210/80 H 96 Intake & Output: Intake & Output 03/20/17 03/21/17 03/22/17 03/23/17 23:59 23:59 23:59 23:59 Intake Total 1870 240 Balance 1870 240 - Objective General Appearance: positive: No acute distress, Other (seen in bed this am; more alert, her gaze actually includes the left) Respiratory: positive: Chest non-tender, No respiratory distress, Breath sounds nml Cardiovascular: positive: Irregularly irregular (rate ~ 60 (irregularly irregular) ; at this rate sounds more like extrasystoles, but afib on tele no tachy/fredis dysrhtymia). negative: Systolic murmur Abdomen: positive: Nml bowel sounds, No distention, Other (assisted up to commode in evening pyridium stained urine). negative: Tenderness Back: negative: CVA tenderness (R), CVA tenderness (L) Skin: positive: Warm, Dry Extremities: positive: No pedal edema Neurologic/Psychiatric: positive: Other (oriented to self, son, doesnt remember me (or doesnt say she does), (as under S; later in evening able to state better why she is here) pupils =, round react to light , no assymetry, 2mm, EOMI, nystagumus only at extremes, slight L facialdroop. L hand 3/5, LLE today 4+/5 when in bed (w/ several requests did lift LLE off bed, and plantar / dorsi flexion 4+/5 on L. Her field deficit seems somewhat improved (at least tis morning) as her gaze was freely incluidng the left. listing to left when sitting up. complained of BERRY, no pupilary or vision changes. cant do rapid alternating movements w/ LUE; (2/5 strenght on LUE)) - Lab Results Fish Bones: 03/23/17 05:30 03/23/17 05:30 Other Labs: Lab Results x24hrs 03/23/17 03/23/17 03/23/17 Range/Units 08:16 05:30 05:30 WBC 10.9 H (4.8-10.8) x10^3/uL RBC 4.61 (4.20-5.40) 10^6/uL Hgb 13.6 (12.0-16.0) g/dL Hct 39.6 (37.0-47.0) % MCV 85.9 (81.0-99.0) fL MCH 29.5 (27.0-31.0) pg MCHC 34.4 (32.0-36.0) g/dL RDW 14.7 (12.0-15.0) % Plt Count 193 (130-450) 10^3/uL MPV 8.1 (7.9-10.8) fL Neut # 6.8 H (1.5-6.6) 10^3/uL Lymph # 2.9 (1.5-3.5) 10^3/uL Hinds # 0.8 (0.0-1.0) 10^3/uL Eos # 0.3 (0.0-0.7) 10^3/uL Baso # 0.1 (0.0-0.1) 10^3/uL Absolute Nucleated RBC 0.00 x10^3/uL Nucleated RBCs 0.0 /100WBC Sodium 138 (135-145) mmol/L Potassium 3.7 (3.5-5.0) mmol/L Chloride 103 (101-111) mmol/L Carbon Dioxide 25 (21-32) mmol/L Anion Gap 10.0 (6-13) BUN 17 (6-20) mg/dL Creatinine 1.3 H (0.4-1.0) mg/dL Estimated GFR (MDRD) 39 L (>89) Glucose 163 H (70-100) mg/dL POC Whole Bld Glucose 173 H (70 - 100) mg/dL Calcium 9.0 (8.5-10.3) mg/dL Total Bilirubin 1.0 (0.2-1.0) mg/dL AST 24 (10-42) IU/L ALT 16 (10-60) IU/L Alkaline Phosphatase 65 (42-121) IU/L Total Protein 7.0 (6.7-8.2) g/dL Albumin 4.0 (3.2-5.5) g/dL Globulin 3.0 (2.1-4.2) g/dL Albumin/Globulin Ratio 1.3 (1.0-2.2) 03/22/17 03/22/17 Range/Units 18:15 11:39 WBC (4.8-10.8) x10^3/uL RBC (4.20-5.40) 10^6/uL Hgb (12.0-16.0) g/dL Hct (37.0-47.0) % MCV (81.0-99.0) fL MCH (27.0-31.0) pg MCHC (32.0-36.0) g/dL RDW (12.0-15.0) % Plt Count (130-450) 10^3/uL MPV (7.9-10.8) fL Neut # (1.5-6.6) 10^3/uL Lymph # (1.5-3.5) 10^3/uL Hinds # (0.0-1.0) 10^3/uL Eos # (0.0-0.7) 10^3/uL Baso # (0.0-0.1) 10^3/uL Absolute Nucleated RBC x10^3/uL Nucleated RBCs /100WBC Sodium 135 (135-145) mmol/L Potassium 3.9 (3.5-5.0) mmol/L Chloride 101 (101-111) mmol/L Carbon Dioxide 23 (21-32) mmol/L Anion Gap 11.0 (6-13) BUN 18 (6-20) mg/dL Creatinine 1.5 H (0.4-1.0) mg/dL Estimated GFR (MDRD) 33 L (>89) Glucose 206 H (70-100) mg/dL POC Whole Bld Glucose 206 H (70 - 100) mg/dL Calcium 8.9 (8.5-10.3) mg/dL Total Bilirubin (0.2-1.0) mg/dL AST (10-42) IU/L ALT (10-60) IU/L Alkaline Phosphatase (42-121) IU/L Total Protein (6.7-8.2) g/dL Albumin (3.2-5.5) g/dL Globulin (2.1-4.2) g/dL Albumin/Globulin Ratio (1.0-2.2) Assessment/Plan - Problem List (1) Acute ischemic stroke Impression: Acute ischemic stroke Impression: 03/23: R MCA stroke w/ multiple areas of stenosis as previously noted; Symptoms slightly improved this am as under O and remain stable (if not slightly improved late in day re: alertness, vision change): spoke w/ neurology at [facility] again this am (aware no CTA last rah) Would not start anticoagulation until SBP under >/=160, BUT, she has concerns that as we start to lower the BP that given all the areas of stenosis that she might have recurrent deficits if she has been "living with" a compensatory high blood pressure. Plan; start low dose lisinopril today (DM2) ; -monitor for any recurrent deficit (briefly 133/74 ~ midnight w/ no reported deficit; -start anticoagulation for afib once BP stable ~ 160, and CT to r/o bleed before the xarelto - Re permissive HTN recomendations [facility] neurologist indicated she and colleagues "split the difference of recommendations" of 185 vs 220) with max 200 for permissive hypertension in first 48 hrs -repeat PT, OT, speech/swallow (w/ recs as previously ordered) eval today -likely neuro SNF (or per therapy recs) in a few days once clearly tolerating BP meds Addendum: 6p; repeated head CT since SBP closer to goal (169, 153/77 current bp (6:40, alert, awake, eating (w/ assist as noted) 191 was ~ time of transfer to CT, and needed to use commode Radiologist called that R MCA territory infarct "doubled in volume sine this morning" w/ edema(the MRI was 03/22 am, and clinically stroke was evolving yesterday as noted) NO bleed d/w Dr. Catherine Prince at [facility] again; She indicated continue current plan and redisucss tomorrow if clinically she is changed w/ the addition of BP meds. All day , she is neurologically/ clinically stable, with exam if anything slighly improved I discussed w/ son Dawood ~ 25 minutes this pm, and nicole mccracken ~ 15 minutes this am 03/22 and marquis ALSO cardioembolic after 2nd discussion w/ [facility] neurologist, TTE , no thrombus ID'd (no DANG here) contacted by radiologist after MRI (see under objective) 2 areas of acute stroke, as well as occlusion origin of R MCA, AND significant disease L MCAalso significant atherosclerotic disease bilateral QUILT STUFFER's carotids < 50% bilaterally exam c/w R MCA stroke w/ L neglect and field deficit and L neglect somewhat more pronounced this afternoon have already started ASA and statin spoke with neurologist x 2 today given progressive symptoms spoke [facility] again (? reCT to ensure no hemorrhagic conversion), when to start anticoag She advised CTA would help her determine better where there is flow (suggested that MRA overread the areas of no flow Radiologist Dr. Salas indicated he would not do with current GFR (this am was 39) (3) Atrial fibrillation Impression: rate controlled (no room to add BB or nondihydropiridineCCB) as above once BP controlled SBP ~ 160 start anticoagulation (will use xarelto) and redo head CT before starting (ensure no element of hemorrhage before starting anticoag neurologist at [facility] Echo normal EF, no WMA, TSH normal (5) CKD (chronic kidney disease) did not go to PCP but rarely baseline not known but suspect it is 1.3-1.5 based on little change w/ IVF starting low dose ACEI for BP control, will monitor for hyperkalemia or worsening Cr on the addition of ACEI . IF worse Cr, will change to amlodipine (6) Urinary tract infection Impression: not likely r/t her presentation now that we know had stroke alpha heme strep day 3 of ceftriaxone today since was not having symptoms (we know presenting s/s were stroke , not UTI); 3 days adequate tx Head ache: no pupil changes,no change in neuro exam c/w this am tylenol d/c oxycodone to not cloud neuro exam (3) Atrial fibrillation Qualifiers: Atrial fibrillation type: unspecified Qualified Code(s): I48.91 - Unspecified atrial fibrillation (5) CKD (chronic kidney disease) Qualifiers: Chronic kidney disease stage: stage 3 (moderate) Qualified Code(s): N18.3 - Chronic kidney disease, stage 3 (moderate) (6) Urinary tract infection Qualifiers: Urinary tract infection type: acute cystitis Hematuria presence: without hematuria Qualified Code(s): N30.00 - Acute cystitis without hematuria
[2017-03-23] MEDS ORDERED: ACETAMINOPHEN 325 MG TABLET PO PRN (11:14)
[2017-03-23] MEDS: ACETAMINOPHEN 325 MG TABLET PO PRN ×2 (11:19→22:01)
[2017-03-23] MEDS: LISINOPRIL 5 MG TABLET PO SCH (11:19)
--- NOTE | 2017-03-23 17:11 | CT Preliminary Report ---
Exam: CT Head W/O IMPRESSION: 1. Increasing extent of the nonhemorrhagic vascular insults involving the right middle cerebral arter y territory. 2. No intracranial blood products. RADIA The above critical findings were discussed with provider . Lisa Richardson by Dr. Buffy avalos 17:09 hrs on 03/23/17. SITE ID: [id number]
--- NOTE | 2017-03-23 17:18 | CT Report ---
EXAM: CT HEAD EXAM DATE: 03/23/2017 04:51 PM. CLINICAL HISTORY: Altered mental status, fever. Atrial fibrillation. Facial droop. Multiple infarcts scattered throughout the right middle cerebral artery territory. Anticoagulation planning. COMPARISON: 03/21/2017. Head MRI earlier today at 1050. TECHNIQUE: Multiaxial CT images were obtained from the foramen magnum to the vertex. IV contrast: Non e. Reformats: Coronal. In accordance with CT protocol optimization, one or more of the following dose reduction techniques w ere utilized for this exam: automated exposure control, adjustment of mA and/or KV based on patient s ize, or use of iterative reconstructive technique. FINDINGS: Parenchyma: No intra-axial blood products. Interval enlargement and new confluence of the acute nonhemorrhagic vascular insults scattered throug hout the right middle cerebral artery, with the greatest degree of involvement now the distal half of the right temporal lobe and the superior mid centrum semi-ovale. There is effacement of the involved sulci. Extraaxial Spaces: Mild to moderate cerebral atrophy. No extra-axial blood products. Ventricles: Minimal effacement of the right lateral ventricle. No midline shift nor intraventricular blood products. Ambient and quadrigeminal cisterns normal caliber. Sinuses: Imaged paranasal sinuses, orbits, and mastoids show no significant abnormality. Bones: No evidence of fracture or calvarial defect. Other: Diffuse chronic microangiopathic white matter changes are evident. IMPRESSION: 1. Increasing extent of the nonhemorrhagic vascular insults involving the right middle cerebral arter y territory. 2. No intracranial blood products. RADIA The above critical findings were discussed with provider Dr. Lisa Richardson by Dr. Buffy Brandt at 17:09 hrs on 03/23/17. Referring Provider Line: [phone] SITE ID: [id number]
[2017-03-23] MEDS: ATORVASTATIN 40 MG TABLET PO SCH (21:22)
[2017-03-23] MEDS: INSULIN GLARGINE 300 UNIT/3 ML PEN SUBQ SCH (21:23)
[2017-03-24] MEDS: ACETAMINOPHEN 325 MG TABLET PO PRN ×2 (02:27→13:38)
[2017-03-24] MEDS: SODIUM CHLORIDE FLUSH 0.9% 10 ML SYRINGE IVP SCH ×3 (05:30→21:58)
[2017-03-24 05:49] LABS: BASOPHILS # (AUTO) 0.1 10^3/uL (0.0-0.1); BASOPHILS % (AUTO) 0.9 %; EOSINOPHILS # (AUTO) 0.3 10^3/uL (0.0-0.7); EOSINOPHILS % (AUTO) 3.4 %; HCT - HEMATOCRIT 39.2 % (37.0-47.0); HGB - HEMOGLOBIN 13.3 g/dL (12.0-16.0); LYMPHOCYTES # (AUTO) 2.5 10^3/uL (1.5-3.5); LYMPHOCYTES % (AUTO) 24.7 %; MEAN CORPUSCULAR HEMOGLOBIN 29.2 pg (27.0-31.0); MEAN CORPUSCULAR HGB CONC 33.9 g/dL (32.0-36.0); MEAN PLATELET VOLUME 7.9 fL (7.9-10.8); MONOCYTES # (AUTO) 0.8 10^3/uL (0.0-1.0); MONOCYTES % (AUTO) 8.1 %; NEUTROPHILS # (AUTO) 6.3 10^3/uL (1.5-6.6); NEUTROPHILS % (AUTO) 62.9 %; NUCLEATED RED BLOOD CELLS AUTO 0.1 /100WBC; RED BLOOD COUNT 4.56 10^6/uL (4.20-5.40); RED CELL DISTRIBUTION WIDTH 14.8 % (12.0-15.0); UNCORRECTED WHITE BLOOD COUNT 10.1 x10^3/uL; WHITE BLOOD COUNT 10.1 x10^3/uL (4.8-10.8)
[2017-03-24 05:52] LABS: CALCIUM 9.1 mg/dL (8.5-10.3); CREATININE 1.3 mg/dL (0.4-1.0); POTASSIUM 3.8 mmol/L (3.5-5.0)
--- NOTE | 2017-03-24 07:02 | PROVIDER PROGRESS NOTE ---
Subjective - Prog Note Date Prog Note Date: 03/24/17 Prog Note Time: 07:00 - Subjective Pt reports feeling: No change (says she slept, headache resolved "here because I fell" (reminded of stroke) I had endometriosis and had a hysterectomy (when asked to remind me what the verticle scar on her abdomen is from)) Subjective: Addendum; 7pm, RN called me that patient was clammy and her SBP lower than had been ~ 112 (had been 150's. HR mid 40's (has been afib with slow ventricular response since here, and as noted cardiology today felt likely excess vagal tone in setting of stroke (of note this am, there was a BP documented as 127 with no change in neuro status (as noted BP checked several x this morning w/SBP 167-169; which are not entered on her VS flow She had been sitting up (upright bed position) for dinner without problem ( needing supervision to not eat to fast) Patient clammy, arousable, "I feel a little dizzy" , LUE still flacid, pupils equal, still folllows EOM's. Gave fluid bolus 250cc x 2. AFter 2nd bolus SBP 149 and patient more arousable; follows commands Was able reiterate the plan "going for a cat scan" LLE ~ 2/5 strength, does not raise it off bed other than a few cm. (when sitting up in chair was able to hip flex) R side strength stable at baseline Spoke with neurologist at [facility], (DR. Prince already signed out); had d/w her this am starting xarelto, and BP stable on the 5 mg lisinpril started yesterday with no worsening in neurologic status He agreed w/ volume bolus, continued concern for the possiblity of hemorrhagic conversion, agreed the bradycardia (56 when awake possilby excess vagal tone) Sent for stat noncontrast head CT ; result pending for now lilsinopril and anticoag (which arent due til tomorrow) d/c'd til result AT this time she arouses easily, but falls asleep easiland responds to questions w/ neur exam similar to earlier in day (but with LLE weaker (compared to exam up in chair) Asked again re: Code status;, "stsill wants to be resuscitated. When asked what that meant to her, she said, "you would have to do what you needed to do to get it started again (heart), she does still want Full code (w/ son as DPOA addison) I contacted [facility] Current Medications - Current Medications Current Medications: Active Medications Generic Name Dose Route Start Last Admin Trade Name Freq PRN Reason Stop Dose Admin Acetaminophen 650 mg 03/22/17 01:10 03/24/17 02:27 Tylenol PO 650 mg Q4HR PRN Administration Pain 1 to 4 Aspirin 81 mg 03/22/17 13:00 03/23/17 09:31 [facility] [place] Aspirin PO 81 mg DAILY OSEAS Administration Atorvastatin Calcium 80 mg 03/22/17 21:00 03/23/17 21:22 Lipitor PO 80 mg QPM OSEAS Administration Enoxaparin Sodium 40 mg 03/22/17 09:00 03/23/17 09:31 Lovenox SUBQ 40 mg DAILY OSEAS Administration Insulin Aspart 1 - 9 unit 03/24/17 08:00 Novolog SUBQ 0800,1200,1700,2100 OSEAS Protocol Insulin Glargine 8 unit 03/23/17 21:00 03/23/17 21:23 Lantus Solostar SUBQ 8 unit QPM OSEAS Administration Lisinopril 5 mg 03/23/17 10:00 03/23/17 11:19 Zestril PO 5 mg DAILY OSEAS Administration Ondansetron HCl 4 mg 03/22/17 01:10 Zofran Inj IVP Q6HR PRN Nausea / Vomiting Polyethylene Glycol 17 gm 03/22/17 09:00 03/23/17 09:31 Miralax PO 17 gm DAILY OSEAS Administration Saccharomyces Boulardii 250 mg 03/22/17 08:00 03/23/17 18:55 Florastor PO 250 mg BIDWM OSEAS Administration Sodium Chloride 10 ml 03/22/17 01:10 Normal Saline Flush 0.9% IVP PRN PRN NEEDED PER PROVIDER ORDERS Sodium Chloride 10 ml 03/22/17 06:00 03/24/17 05:30 Normal Saline Flush 0.9% IVP 10 ml Q8HR OSEAS Administration Naproxen Sodium [Aleve] 220 mg PO BID PRN 03/22/17 Objective - Vital Signs/Intake & Output Vital Signs: Vital Signs x48h Temp Pulse Resp BP Pulse Ox 03/24/17 05:00 36.4 C L 53 L 16 156/69 H 97 03/24/17 01:00 36.9 C 70 20 187/73 H 96 Intake & Output: Intake & Output 03/21/17 03/22/17 03/23/17 03/24/17 23:59 23:59 23:59 23:59 Intake Total 1870 2411 Output Total 150 Balance 1870 2261 - Objective General Appearance: positive: No acute distress, Other (sleeping soundly, arouses relatively easily. Responds to questions as above, L facial droop, pupils equal, her L visual field deficit is less pronounced than on day 1 (~ same as yesterday) R (good eye); peripheral vision starts ~ 150 degrees laterally . On Left peripheral vision starts ~ 90 degrees laterally. RLE: 5/5 strength. Has LLE neglect, but ~ 4/5 strenght plantar/dorsiflexion, can left LLE against gravity. 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 RN's note impulsiveness w/ eating as noted by RESIDENTIAL SUPPORT SPECIALIST) Eyes Bilateral: positive: EOMI (the R gaze preference persists but improved ( see below under neuro)), Other (pupils equal) ENT: positive: Other (tongue deviates R when shows (she does not open mouth wide enuf on examto eval uvula), can push tongue against buccal mucosa of L cheek) Respiratory: positive: No respiratory distress, Breath sounds nml Cardiovascular: positive: No murmur (to auscultation SOUNDS regular because of slow rate, but on tele is afib w/ slow ventricular respnose ~ 55 -60 when awake and up,) Abdomen: positive: Nml bowel sounds, No distention. negative: Tenderness ( initially jumped when I started palpating, but then tolerated abdominal palpation, adult pad) Skin: positive: Warm, Dry Neurologic/Psychiatric: positive: Other (somewhat flat affect (family states she is "pretty even keel at home") smiles spontaneously to appropriate situation. drowsy w/ exam this am, but followed commands and makes appropriate request EOMI, pupils equal ; she does follow finger to extremes of gaze, and) - Lab Results Fish Bones: 03/24/17 05:00 03/24/17 05:00 Other Labs: Lab Results x24hrs 06/03/24/17 03/23/17 Range/Units 05:00 05:00 20:37 WBC 10.1 (4.8-10.8) x10^3/uL RBC 4.56 (4.20-5.40) 10^6/uL Hgb 13.3 (12.0-16.0) g/dL Hct 39.2 (37.0-47.0) % MCV 86.0 (81.0-99.0) fL MCH 29.2 (27.0-31.0) pg MCHC 33.9 (32.0-36.0) g/dL RDW 14.8 (12.0-15.0) % Plt Count 197 (130-450) 10^3/uL MPV 7.9 (7.9-10.8) fL Neut # 6.3 (1.5-6.6) 10^3/uL Lymph # 2.5 (1.5-3.5) 10^3/uL [place] # 0.8 (0.0-1.0) 10^3/uL Eos # 0.3 (0.0-0.7) 10^3/uL Baso # 0.1 (0.0-0.1) 10^3/uL Absolute Nucleated RBC 0.01 x10^3/uL Nucleated RBCs 0.1 /100WBC Sodium 139 (135-145) mmol/L Potassium 3.8 (3.5-5.0) mmol/L Chloride 101 (101-111) mmol/L Carbon Dioxide 29 (21-32) mmol/L Anion Gap 9.0 (6-13) BUN 19 (6-20) mg/dL Creatinine 1.3 H (0.4-1.0) mg/dL Estimated GFR (MDRD) 39 L (>89) Glucose 162 H (70-100) mg/dL POC Whole Bld Glucose 211 H (70 - 100) mg/dL Calcium 9.1 (8.5-10.3) mg/dL Total Bilirubin (0.2-1.0) mg/dL AST (10-42) IU/L ALT (10-60) IU/L Alkaline Phosphatase (42-121) IU/L Total Protein (6.7-8.2) g/dL Albumin (3.2-5.5) g/dL Globulin (2.1-4.2) g/dL Albumin/Globulin Ratio (1.0-2.2) 03/23/17 03/23/17 03/23/17 Range/Units 17:02 11:43 08:16 WBC (4.8-10.8) x10^3/uL RBC (4.20-5.40) 10^6/uL Hgb (12.0-16.0) g/dL Hct (37.0-47.0) % MCV (81.0-99.0) fL MCH (27.0-31.0) pg MCHC (32.0-36.0) g/dL RDW (12.0-15.0) % Plt Count (130-450) 10^3/uL MPV (7.9-10.8) fL Neut # (1.5-6.6) 10^3/uL Lymph # (1.5-3.5) 10^3/uL [place] # (0.0-1.0) 10^3/uL Eos # (0.0-0.7) 10^3/uL Baso # (0.0-0.1) 10^3/uL Absolute Nucleated RBC x10^3/uL Nucleated RBCs /100WBC Sodium (135-145) mmol/L Potassium (3.5-5.0) mmol/L Chloride (101-111) mmol/L Carbon Dioxide (21-32) mmol/L Anion Gap (6-13) BUN (6-20) mg/dL Creatinine (0.4-1.0) mg/dL Estimated GFR (MDRD) (>89) Glucose (70-100) mg/dL POC Whole Bld Glucose 174 H 212 H 173 H (70 - 100) mg/dL Calcium (8.5-10.3) mg/dL Total Bilirubin (0.2-1.0) mg/dL AST (10-42) IU/L ALT (10-60) IU/L Alkaline Phosphatase (42-121) IU/L Total Protein (6.7-8.2) g/dL Albumin (3.2-5.5) g/dL Globulin (2.1-4.2) g/dL Albumin/Globulin Ratio (1.0-2.2) 03/23/17 03/23/17 Range/Units 05:30 05:30 WBC 10.9 H (4.8-10.8) x10^3/uL RBC 4.61 (4.20-5.40) 10^6/uL Hgb 13.6 (12.0-16.0) g/dL Hct 39.6 (37.0-47.0) % MCV 85.9 (81.0-99.0) fL MCH 29.5 (27.0-31.0) pg MCHC 34.4 (32.0-36.0) g/dL RDW 14.7 (12.0-15.0) % Plt Count 193 (130-450) 10^3/uL MPV 8.1 (7.9-10.8) fL Neut # 6.8 H (1.5-6.6) 10^3/uL Lymph # 2.9 (1.5-3.5) 10^3/uL [place] # 0.8 (0.0-1.0) 10^3/uL Eos # 0.3 (0.0-0.7) 10^3/uL Baso # 0.1 (0.0-0.1) 10^3/uL Absolute Nucleated RBC 0.00 x10^3/uL Nucleated RBCs 0.0 /100WBC Sodium 138 (135-145) mmol/L Potassium 3.7 (3.5-5.0) mmol/L Chloride 103 (101-111) mmol/L Carbon Dioxide 25 (21-32) mmol/L Anion Gap 10.0 (6-13) BUN 17 (6-20) mg/dL Creatinine 1.3 H (0.4-1.0) mg/dL Estimated GFR (MDRD) 39 L (>89) Glucose 163 H (70-100) mg/dL POC Whole Bld Glucose (70 - 100) mg/dL Calcium 9.0 (8.5-10.3) mg/dL Total Bilirubin 1.0 (0.2-1.0) mg/dL AST 24 (10-42) IU/L ALT 16 (10-60) IU/L Alkaline Phosphatase 65 (42-121) IU/L Total Protein 7.0 (6.7-8.2) g/dL Albumin 4.0 (3.2-5.5) g/dL Globulin 3.0 (2.1-4.2) g/dL Albumin/Globulin Ratio 1.3 (1.0-2.2) Assessment/Plan - Problem List (1) Acute ischemic stroke Impression: 03/24: R MCA stroke w/ left neglect, with likely both cardioembolic stroke, and atherosclerotic disease as well as noted before Clinically stable and slightly improved re: visual defect, but LUE increased weakness noted yesterday persists (OT notes as well w/ LLE ? weaker) re:R gaze preference persists but not as pronounced , +impulsiveness Note(the CT 03/23 was to r/o bleed prior to initiation of anticoag for afib ); The R MCA stroke was clinically evolving on admission as previously noted. NO bleed on CT (it was compared with 03/22 MRI >24 hrs before, not with "MRI earlier today") Discussed w/ Dr. 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 Prinec BP ~[address] Prince advised before starting - statin started on admit started lisinopril 5 mg yesterday. continue that dose based on BP (Dr. Prince/ Jas[facility] neuro advised can titrate as outpt if SBP's ~ 160) -working on DM management increased lantus last pm, will increase SSI today to moderate -on Lovenox for VTE prophylaxis in hospital (since admit); starting xarelto renal dosed today, so stopping lovenox for VTE prophylaxis_ Disposition:PT, OT, RESIDENTIAL SUPPORT SPECIALIST following daily; Given fatigue currently, not likely to initially tolerate 3 hrs for neuro rehab, ? 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 (3) Atrial fibrillation Impression: afib with slow ventricular response rate ~50-60 asleep, rare upper 30's when sleeping, often low 40's asleep (HR always increases w/ stimulation rate controlled (no room to add BB or nondihydropiridineCCB ; NO AVN blocking agents) spoke w/ Dr. 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 Mod RVE, Severe [place] ( keray read), TSH normal 4)Diabetes not previously on treatment A1C 8.1, average 186 increased PM lantus yesterday, increasing correctional coverage today (goal 140 -180 in house) Since will be in monitored setting (SNF) after acute stroke will continue the lantus and correctional x ~ 2 wks, then start low dose metformin With her GFR 39, sulfonylurea risky for hypoglycemia (5) CKD (chronic kidney disease) likley due to CKD did not go to PCP but rarely baseline not known but suspect it is 1.3-1.5 based on little change w/ IVF starting low dose ACEI for BP control, will monitor for hyperkalemia or worsening Cr on the addition of ACEI . IF worse Cr, will change to amlodipine (6 Urinary tract infection Impression: not likely r/t her presentation now that we know had stroke alpha heme strep day 2 of ceftriaxone 03/23 Son says she does have frequent UTI's. Since diabetic and cant entirely tell if she did have symtpoms will treat 4 more days keflex (this MIGHT have been asymptomatic bactueria) (3) Atrial fibrillation Qualifiers: Atrial fibrillation type: unspecified Qualified Code(s): I48.91 - Unspecified atrial fibrillation (5) CKD (chronic kidney disease) Qualifiers: Chronic kidney disease stage: stage 3 (moderate) Qualified Code(s): N18.3 - Chronic kidney disease, stage 3 (moderate) (6) Urinary tract infection Qualifiers: Urinary tract infection type: acute cystitis Hematuria presence: without hematuria Qualified Code(s): N30.00 - Acute cystitis without hematuria
[2017-03-24] MEDS: INSULIN ASPART 300 UNIT/3 ML PEN SUBQ SCH ×4 (08:20→22:13)
[2017-03-24] MEDS: SACCHAROMYCES BOULARDII 250 MG CAPSULE PO SCH ×2 (08:21→17:13)
[2017-03-24] MEDS: ASPIRIN CHEW 81 MG TABLET PO SCH (08:21)
[2017-03-24] MEDS: ENOXAPARIN 40 MG/0.4 ML SYRINGE SUBQ SCH (08:21)
[2017-03-24] MEDS: LISINOPRIL 5 MG TABLET PO SCH (08:21)
[2017-03-24] MEDS: POLYETHYLENE GLYCOL 3350 17 GM PACKET PO SCH (08:22)
[2017-03-24] MEDS ORDERED: RIVAROXABAN 15 MG TABLET PO SCH (11:18)
[2017-03-24] MEDS: CEPHALEXIN 250 MG CAPSULE PO SCH ×2 (13:38→21:59)
[2017-03-24] MEDS ORDERED: SODIUM CHLORIDE 0.9% 1,000 ML IV SCH (15:00)
[2017-03-24] MEDS ORDERED: oxyCODONE 5 MG TABLET PO PRN (16:04)
[2017-03-24] MEDS: SODIUM CHLORIDE 0.9% 1,000 ML IV SCH ×3 (19:30→23:51)
[2017-03-24] MEDS ORDERED: SODIUM CHLORIDE 0.9% 500 ML IV ONE (19:45)
--- NOTE | 2017-03-24 20:48 | CT Preliminary Report ---
Exam: CT Head W/O IMPRESSION: Continued mild increase in the conspicuity and overall extent of the nonhemorrhagic vascu lar insult(s) involving the right middle cerebral artery territory. [facility] SITE ID: [id number]
--- NOTE | 2017-03-24 20:59 | CT Report ---
EXAM: CT HEAD EXAM DATE: 03/24/2017 08:10 PM. CLINICAL HISTORY: Acute right middle cerebral artery territory infarct. COMPARISON: 03/23/2017. TECHNIQUE: Multiaxial CT images were obtained from the foramen magnum to the vertex. IV contrast: Non e. Reformats: Coronal. In accordance with CT protocol optimization, one or more of the following dose reduction techniques w ere utilized for this exam: automated exposure control, adjustment of mA and/or KV based on patient s ize, or use of iterative reconstructive technique. FINDINGS: Parenchyma: No intraaxial blood products. Mild further interval increase in the overall caliber and degree of confluence of the patchy decrease d densities throughout the right middle cerebral artery territory, now involving the entirety of the right temporal lobe. Further increase in the degree of mild mass effect with effacement of the involv ed sulci and right sylvian fissure. Extraaxial Spaces: Normal for age. No subdural or epidural collections identified. Ventricles: Stable slight effacement right lateral ventricle. No intraventricular blood products nor midline shift. Ambient and quadrigeminal cisterns normal caliber. Sinuses: Imaged paranasal sinuses, orbits, and mastoids show no significant abnormality. Bones: No evidence of fracture or calvarial defect. Other: Diffuse chronic microangiopathic white matter changes are evident. IMPRESSION: Continued mild increase in the conspicuity and overall extent of the nonhemorrhagic vascu lar insult(s) involving the right middle cerebral artery territory. [facility] Referring Provider Line: [phone] SITE ID: [id number]
[2017-03-24] MEDS: ATORVASTATIN 40 MG TABLET PO SCH (21:58)
[2017-03-24] MEDS: INSULIN GLARGINE 300 UNIT/3 ML PEN SUBQ SCH (22:14)
[2017-03-25 06:19] LABS: BASOPHILS # (AUTO) 0.1 10^3/uL (0.0-0.1); BASOPHILS % (AUTO) 0.6 %; EOSINOPHILS # (AUTO) 0.3 10^3/uL (0.0-0.7); EOSINOPHILS % (AUTO) 3.1 %; HCT - HEMATOCRIT 39.2 % (37.0-47.0); HGB - HEMOGLOBIN 13.2 g/dL (12.0-16.0); LYMPHOCYTES # (AUTO) 2.4 10^3/uL (1.5-3.5); LYMPHOCYTES % (AUTO) 22.3 %; MEAN CORPUSCULAR HGB CONC 33.7 g/dL (32.0-36.0); MEAN PLATELET VOLUME 7.9 fL (7.9-10.8); MONOCYTES # (AUTO) 0.9 10^3/uL (0.0-1.0); MONOCYTES % (AUTO) 8.3 %; NEUTROPHILS # (AUTO) 7.2 10^3/uL (1.5-6.6); NEUTROPHILS % (AUTO) 65.7 %; RED BLOOD COUNT 4.56 10^6/uL (4.20-5.40); RED CELL DISTRIBUTION WIDTH 14.6 % (12.0-15.0); UNCORRECTED WHITE BLOOD COUNT 10.9 x10^3/uL; WHITE BLOOD COUNT 10.9 x10^3/uL (4.8-10.8)
[2017-03-25] MEDS: SODIUM CHLORIDE 0.9% 1,000 ML IV SCH (06:35)
[2017-03-25] MEDS: SODIUM CHLORIDE FLUSH 0.9% 10 ML SYRINGE IVP SCH ×3 (06:54→21:22)
[2017-03-25] MEDS: CEPHALEXIN 250 MG CAPSULE PO SCH ×4 (06:56→21:21)
[2017-03-25] MEDS ORDERED: BISACODYL 10 MG SUPP PR SCH (08:00)
--- NOTE | 2017-03-25 09:56 | PROVIDER PROGRESS NOTE ---
Subjective - Prog Note Date Prog Note Date: 03/25/17 Prog Note Time: 09:52 (seen ~ 7:30, again 9) - Subjective Subjective: no longer has BERRY, recalls all the activity/exams before CT last Pm says she ate already today "scrambled eggs" (but per RN she did not eat today) PT and OT note that when they stood her yesterday she continued to urinate ( more than when she was sitting on commode) Current Medications - Current Medications Current Medications: Active Medications Generic Name Dose Route Start Last Admin Trade Name Freq PRN Reason Stop Dose Admin Acetaminophen 650 mg 03/22/17 01:10 03/24/17 13:38 Tylenol PO 650 mg Q4HR PRN Administration Pain 1 to 4 Aspirin 81 mg 03/22/17 13:00 03/24/17 08:21 [facility] [place] Aspirin PO 81 mg DAILY OSEAS Administration Atorvastatin Calcium 80 mg 03/22/17 21:00 03/24/17 21:58 Lipitor PO 80 mg QPM OSEAS Administration Cephalexin 250 mg 03/24/17 14:00 03/25/17 07:01 Keflex PO Not Given TID OSEAS Sodium Chloride 1,000 mls @ 100 mls/hr 03/24/17 22:40 03/25/17 06:35 Normal Saline 0.9% IV 100 mls/hr .Q10H OSEAS Administration Insulin Aspart 1 - 9 unit 03/24/17 08:00 03/24/17 22:13 Novolog SUBQ 3 unit 0800,1200,1700,2100 OSEAS Administration Protocol Insulin Glargine 8 unit 03/23/17 21:00 03/24/17 22:14 Lantus Solostar SUBQ 8 unit QPM OSEAS Administration Ondansetron HCl 4 mg 03/22/17 01:10 Zofran Inj IVP Q6HR PRN Nausea / Vomiting Polyethylene Glycol 17 gm 03/22/17 09:00 03/24/17 08:22 Miralax PO 17 gm DAILY OSEAS Administration Sodium Chloride 10 ml 03/22/17 01:10 Normal Saline Flush 0.9% IVP PRN PRN NEEDED PER PROVIDER ORDERS Sodium Chloride 10 ml 03/22/17 06:00 03/25/17 06:54 Normal Saline Flush 0.9% IVP Not Given Q8HR OSEAS Naproxen Sodium [Aleve] 220 mg PO BID PRN 03/22/17 Objective - Vital Signs/Intake & Output Reviewed Vital Signs: Yes Vital Signs: Vital Signs x48h Temp Pulse Resp BP Pulse Ox 03/25/17 09:00 36.6 C 60 20 144/75 H 96 03/25/17 04:43 36.4 C L 62 20 149/63 H 97 overnight since boluses yesterday, SBP 164/70 945pm, 162/77 00:58 am, 149/63 ~ 445 am, 9am 144/75 Yesterday (~ noon when i checked 162/72 Intake & Output: Intake & Output 03/22/17 03/23/17 03/24/17 03/25/17 23:59 23:59 23:59 23:59 Intake Total 1870 2411 1647 1026 Output Total 150 Balance 1870 2261 1647 1026 - Objective General Appearance: positive: Other (sleeping when I first entered went back ~ 8 :30 am, awake, alert ,smiling at me, still w / R gaze preference but does look left if I ask her to no nystagmus, does follow EOM's. (yesterday she was looking Left a little more spontaneously)) Eyes Bilateral: positive: Other (as above R gaze preference, will look L when asked by examiner) ENT: positive: Other (no residual food in mouth) Respiratory: positive: No respiratory distress, Breath sounds nml Cardiovascular: positive: No murmur, Other (on tele still; afib with slow ventricular response ; continues when asleep rate in 40's, rare upper 30, consistently increases to mid50's when aroused . BP as above) Abdomen: positive: Nml bowel sounds, No distention, Other (later in shift assisted up out of chair and urinated in upright position PVR after this nearly 1000 cc). negative: Tenderness (adult pad on, nontender) Skin: positive: Warm, Dry. negative: Diaphoresis Extremities: positive: No pedal edema Neurologic/Psychiatric: positive: Other (orientation: "in abrams", April. When told its late February and asked which holiday would be coming "29 of March" responds to questions albeit slowly. as above R gaze preference but will look to left w/ direction Left facial droop, can push tongue agnst inside of left cheek, tongue deviated. LUE occasional involuntary motion (seems involuntary); does not squeeze, LLE ; With MUCH encouragement, she does wiggle toes, and tries to lift leg off bed (2-3/5 (does start to flex L knee, and slides heel back a short distance proximally, plantar/dorsiflex ~ 3/5 Left R side still 5/5 ) - Lab Results Fish Bones: 03/25/17 05:54 03/24/17 05:00 Other Labs: Lab Results x24hrs 03/25/17 03/25/17 03/24/17 Range/Units 07:48 05:54 21:07 WBC 10.9 H (4.8-10.8) x10^3/uL RBC 4.56 (4.20-5.40) 10^6/uL Hgb 13.2 (12.0-16.0) g/dL Hct 39.2 (37.0-47.0) % MCV 86.0 (81.0-99.0) fL MCH 29.0 (27.0-31.0) pg MCHC 33.7 (32.0-36.0) g/dL RDW 14.6 (12.0-15.0) % Plt Count 194 (130-450) 10^3/uL MPV 7.9 (7.9-10.8) fL Neut # 7.2 H (1.5-6.6) 10^3/uL Lymph # 2.4 (1.5-3.5) 10^3/uL Acadia # 0.9 (0.0-1.0) 10^3/uL Eos # 0.3 (0.0-0.7) 10^3/uL Baso # 0.1 (0.0-0.1) 10^3/uL Absolute Nucleated RBC 0.01 x10^3/uL Nucleated RBCs 0.0 /100WBC POC Whole Bld Glucose 149 H 182 H (70 - 100) mg/dL 03/24/17 03/24/17 03/24/17 Range/Units 18:59 16:51 11:33 WBC (4.8-10.8) x10^3/uL RBC (4.20-5.40) 10^6/uL Hgb (12.0-16.0) g/dL Hct (37.0-47.0) % MCV (81.0-99.0) fL MCH (27.0-31.0) pg MCHC (32.0-36.0) g/dL RDW (12.0-15.0) % Plt Count (130-450) 10^3/uL MPV (7.9-10.8) fL Neut # (1.5-6.6) 10^3/uL Lymph # (1.5-3.5) 10^3/uL Acadia # (0.0-1.0) 10^3/uL Eos # (0.0-0.7) 10^3/uL Baso # (0.0-0.1) 10^3/uL Absolute Nucleated RBC x10^3/uL Nucleated RBCs /100WBC POC Whole Bld Glucose 167 H 168 H 191 H (70 - 100) mg/dL Assessment/Plan - Problem List (1) Acute ischemic stroke Impression: : 03/25 patient neurologically stable compared with 03/24 (much improved from last evening) spoke with Dr Prince again re:the repeat CT done last rah. she notes the MCA stroke more evident on CT given her flucutations in cognition, vital signs she indicted no "right" answer re: the antihypertensive and anticoagulation Risk of further stroke given her various areas of stenoses and afib, and possible hemorrhagic conversion given size (although that has not happened ~ 1-2 wks if stable in SNF , revisit starting the xarelto and ACEI contine ASA, statin resume lovenox for VTE prophylaxis likely [facility] in am 03/24; R MCA stroke w/ left neglect, with likely both cardioembolic stroke, and atherosclerotic disease as well as noted before Clinically stable and slightly improved re: visual defect, but LUE increased weakness noted yesterday persists (OT notes as well w/ LLE ? weaker) re:R gaze preference persists but not as pronounced , +impulsiveness Note(the CT 03/23 was to r/o bleed prior to initiation of anticoag for afib ); The R MCA stroke was clinically evolving on admission as previously noted. NO bleed on CT (it was compared with 03/22 MRI >24 hrs before, not with "MRI earlier today") Discussed w/ Dr. 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 Prince BP ~[address] Prince advised before starting - statin started on admit started lisinopril 5 mg yesterday. continue that dose based on BP (Dr. Prince/ [facility] neuro advised can titrate as outpt if SBP's ~ 160) -working on DM management increased lantus last pm, will increase SSI today to moderate -on Lovenox for VTE prophylaxis in hospital (since admit); starting xarelto renal dosed today, so stopping lovenox for VTE prophylaxis_ Disposition:PT, OT, FINANCIAL INVESTMENT MANAGER following daily; Given fatigue currently, not likely to initially tolerate 3 hrs for neuro rehab, ? SNF tomorrow vs sat if stable w/ later transition to neuro rehab 2) Hypertension; stopped lisinopril after event 03/25 pm (although was tolerating ok) per Dr Prince / neurology; revisit starting antihypertensive and anticoagulation once her clinical status is stable ~ 1 week-2 wks ( SBP's 140's today, most recent 174/72 (3) Atrial fibrillation Impression: afib with slow ventricular response persists; likely excess vagal tone with large MCA stroke rate ~50-60 asleep, rare upper 30's when sleeping, often low 40's asleep (HR always increases w/ stimulation rate controlled (no room to add BB or nondihydropiridineCCB ; NO AVN blocking agents) spoke w/ Dr. Waller at [facility] 03/24 ; he indicated this may still be excess vagal response from the acute stroke only advises (as above) no AVN blocking agent, and if persists in future could consider outpt cardiology eval; no recs currently Echo normal EF, no obvious WMA in setting of dysrthymia. Mod RVE, Severe MARIETTA ( keray read), TSH normal 4)Diabetes not previously on treatment A1C 8.1, average 186 on pm lantus 8 units, increased correctional coverage 03/24 (goal 140-180 in house) Since will be in monitored setting (SNF) after acute stroke will continue the lantus and correctional x ~ 2 wks, then start low dose metformin With her GFR 39, sulfonylurea risky for hypoglycemia (5) CKD (chronic kidney disease) likley due to CKD ; BMP not rechecked today 03/24 rare pcp follow up baseline not known but suspect it is 1.3-1.5 based on little change w/ IVF started low dose ACEI for BP control, (now held as above) but K, Cr was tolerating . (6 Urinary tract infection/ urinary retention (only identified retention 03/25) Impression: not likely r/t her presentation now that we know had stroke alpha heme strep changed to Keflex after initial ceftriaxone Doubt that urinary retention related to stroke For now post void residual and q 8 hr intermittant straight cath (prefer not to place indwelling catheter) may need outpatient urodynamics continue frequent toileting (3) Atrial fibrillation Qualifiers: Atrial fibrillation type: unspecified Qualified Code(s): I48.91 - Unspecified atrial fibrillation (5) CKD (chronic kidney disease) Qualifiers: Chronic kidney disease stage: stage 3 (moderate) Qualified Code(s): N18.3 - Chronic kidney disease, stage 3 (moderate) (6) Urinary tract infection Qualifiers: Urinary tract infection type: acute cystitis Hematuria presence: without hematuria Qualified Code(s): N30.00 - Acute cystitis without hematuria
[2017-03-25] MEDS: ASPIRIN CHEW 81 MG TABLET PO SCH (10:29)
[2017-03-25] MEDS: INSULIN ASPART 300 UNIT/3 ML PEN SUBQ SCH ×5 (10:34→23:27)
[2017-03-25] MEDS: POLYETHYLENE GLYCOL 3350 17 GM PACKET PO SCH (11:09)
[2017-03-25] MEDS: INSULIN GLARGINE 300 UNIT/3 ML PEN SUBQ SCH (21:20)
[2017-03-25] MEDS: ATORVASTATIN 40 MG TABLET PO SCH (21:21)
[2017-03-25] MEDS: ENOXAPARIN 40 MG/0.4 ML SYRINGE SUBQ SCH (21:21)
[2017-03-26 06:38] LABS: BASOPHILS # (AUTO) 0.1 10^3/uL (0.0-0.1); BASOPHILS % (AUTO) 0.6 %; EOSINOPHILS # (AUTO) 0.2 10^3/uL (0.0-0.7); EOSINOPHILS % (AUTO) 2.2 %; HCT - HEMATOCRIT 39.2 % (37.0-47.0); HGB - HEMOGLOBIN 13.5 g/dL (12.0-16.0); LYMPHOCYTES # (AUTO) 2.3 10^3/uL (1.5-3.5); MEAN CORPUSCULAR HEMOGLOBIN 29.4 pg (27.0-31.0); MEAN CORPUSCULAR HGB CONC 34.5 g/dL (32.0-36.0); MEAN CORPUSCULAR VOLUME 85.2 fL (81.0-99.0); MEAN PLATELET VOLUME 8.2 fL (7.9-10.8); MONOCYTES # (AUTO) 0.9 10^3/uL (0.0-1.0); MONOCYTES % (AUTO) 8.2 %; NEUTROPHILS # (AUTO) 7.5 10^3/uL (1.5-6.6); RED CELL DISTRIBUTION WIDTH 14.4 % (12.0-15.0); UNCORRECTED WHITE BLOOD COUNT 11.1 x10^3/uL; WHITE BLOOD COUNT 11.1 x10^3/uL (4.8-10.8)
[2017-03-26 06:46] LABS: CALCIUM 9.1 mg/dL (8.5-10.3); POTASSIUM 3.6 mmol/L (3.5-5.0)
[2017-03-26] MEDS: SODIUM CHLORIDE FLUSH 0.9% 10 ML SYRINGE IVP SCH (07:00)
[2017-03-26] MEDS: CEPHALEXIN 250 MG CAPSULE PO SCH (07:00)
[2017-03-26] MEDS: ENOXAPARIN 40 MG/0.4 ML SYRINGE SUBQ SCH (08:18)
[2017-03-26] MEDS: POLYETHYLENE GLYCOL 3350 17 GM PACKET PO SCH (08:18)
[2017-03-26] MEDS: ACETAMINOPHEN 325 MG TABLET PO PRN (08:18)
[2017-03-26] MEDS: INSULIN ASPART 300 UNIT/3 ML PEN SUBQ SCH (08:19)
[2017-03-26] MEDS: ASPIRIN CHEW 81 MG TABLET PO SCH (08:19)
[2017-03-26 11:56] VITALS: BP 163/76
--- NOTE | 2017-03-28 04:00 | DISCHARGE SUMMARY ---
DATE OF ADMISSION: 03/22/2017 DATE OF DISCHARGE: 03/26/2017 ADMITTING PROVIDER: Victor Hugo Trejo MD. DISCHARGING PROVIDER: MIGUEL A Trejo. PRIMARY CARE PROVIDER: Juan Antonio Garcia MD. DISCHARGE DIAGNOSES 1. Acute ischemic stroke, cardioembolic, right middle cerebral artery occlusion. 2. Chronic atrial fibrillation. 3. Essential hypertension. 4. Urinary tract infection, alpha strep. 5. Type 2 diabetes mellitus, uncontrolled. 6. Urinary retention. 7. Obstructive sleep apnea, by visualization, not by sleep study. DISCHARGE MEDICATION LIST 1. Tylenol 650 mg by mouth every 6 hours as needed for pain, fever, or headache. 2. Aspirin 81 mg by mouth daily for chronic AFib and CVA prophylaxis. 3. Lipitor 20 mg by mouth at bedtime for CVA prophylaxis. 4. Keflex 250 mg by mouth 3 times a day for 5 days for a UTI. 5. Zofran ODT 4 mg sublingual every 6 hours as needed for nausea. 6. Miralax 17 grams by mouth daily for constipation. 7. Colace 100 mg by mouth twice a day for constipation. 8. PCP to reevaluate progress and start anticoagulation with DOAC or warfarin in 1-2 weeks and if rem ains hypertensive, start anti-hypertensive therapy. 9. Insulin orders blood sugars a.c. and at bedtime 8 units of Lantus at bedtime, NovoLog low dose sli ding scale insulin. HOSPITAL COURSE: The patient presented to the emergency department with report that she had been in h er normal health until 10 a.m. that morning. At 9 p.m. she was found to be very confused, slow to res pond to questions, and looked very dazed. She did not have any focal weakness at that time, but was v charla slow to move and she was therefore back to the emergency department. She was found to have waxing and waning encephalopathy and was admitted for possible TIA or stroke. UTI also considered as a diff erential. Her neuro imaging revealed a scattered acute infarct in the right frontal paraventricular w kamron matter and the right retrogonal white matter. The distribution poor response to the right MCA an d/or right MCA watershed territories. No evidence of hemorrhage. There was absence of right MCA flow void concerning for occlusion. The patient had findings of both cardioembolic and atherosclerotic cer ebral disease. She was started on aspirin and Lovenox for DVT prophylaxis. She was also then started on anti-hypertensive therapy 48 hours following episode and had an event of hypotension to a low of 1 . This was then rediscussed with the neurologist and a repeat CT showed just further evolution o f a stroke, but no new stroke. The patient's evaluation developed right-sided gaze, left upper extrem ity hemiplegia, left lower extremity weakness, fluctuating levels of alertness, and slow to respond t o questions. She was evaluated by physical and occupational therapy, which both felt that inpatient r ehab would be beneficial. Speech therapy evaluated her and placed her on a dysphagia mechanical diet. The patient is not able to tolerate 3 hours of therapy at this time and therefore, she was transferr ed to a intermediate facility for rehab. If her insurance improves, inpatient neuro rehab could be considered for this otherwise pleasant lady. Upon further discussion with [facility] Neuro, it would be requested that the primary care provider reevaluate the patient's blood pressure in 1-2 weeks and if stable at that time, begin anti-hypertensive therapy and also start her on anticoagulation therapy w ith DOAC or warfarin. At this time, as her eating volumes are not consistent, we will continue on sli ding scale insulin. She can further be transitioned to oral medication once she is tolerating foods a nd eating more consistently. The patient did experience urinary retention while in the hospital, requ ired straight catheterization x1. This was likely compounded by lack of mobility and lack of p.o. int dominga coupled with constipation. The patient started on routine bowel meds, the p.r.n. meds as needed. These can be held if she develops any looser frequent stools. The patient will continue on 250 mg of Keflex for an additional 5 days for 1 week of treatment for alpha-strep UTI. At the time of discharge , a goals of care conversation was had with the patient's 2 sons and [id number]. A POLST form wa s completed. She will be DNR, limited interventions. She does not want intubation. BiPAP would need t o be discussed if indicated. No decision was made regarding tube feedings as this would depend on the patient's baseline neurological function. If this were to become an issue, would need to rediscuss w ith the family at that time. The patient was also noted to have sleep apnea, the family states that t his is not new, she has never undergone routine sleep apnea testing, but they have noted it at her re sidence. Recommend followup sleep apnea testing as an outpatient if the patient is agreeable. VITAL SIGNS AT DISCHARGE: Temperature 36.5 degrees Celsius, heart rate 52 beats per minute, blood pre ssure 111/59, respiratory rate 17 breaths per minute, O2 saturation 97% on room air. TIME SPENT ON DISCHARGE: Greater than 30 minutes. JOB #: [id number] EXT JOB #:[id number]
== END 2017-03-26 12:50 | DRG 64 ==
LOC: EDUNIT# → ED 22:22 → MS 03-22 01:10 → OBSVTOIN 03-22 09:48 → MS 03-22 13:13
PROVIDERS: ADMIT Internal Medicine; ATTEND Nurse Practitioner Acute Care
DX: I63.9 Cerebral infarction, unspecified (principal); I63.511 Cerebral infarction due to unspecified occlusion or stenosis of right middle cerebral artery; G93.49 Other encephalopathy; G81.04 Flaccid hemiplegia affecting left nondominant side; I66.03 Occlusion and stenosis of bilateral middle cerebral arteries; N30.00 Acute cystitis without hematuria; I48.91 Unspecified atrial fibrillation; H53.8 Other visual disturbances; R13.10 Dysphagia, unspecified; R29.810 Facial weakness; I48.2 Chronic atrial fibrillation; B95.4 Other streptococcus as the cause of diseases classified elsewhere; M19.019 Primary osteoarthritis, unspecified shoulder; M16.10 Unilateral primary osteoarthritis, unspecified hip; Z79.1 Long term (current) use of non-steroidal anti-inflammatories (NSAID); Z82.3 Family history of stroke; Z82.49 Family history of ischemic heart disease and other diseases of the circulatory system; E11.65 Type 2 diabetes mellitus with hyperglycemia; R33.9 Retention of urine, unspecified; G47.33 Obstructive sleep apnea (adult) (pediatric); I67.2 Cerebral atherosclerosis; K59.00 Constipation, unspecified; E11.22 Type 2 diabetes mellitus with diabetic chronic kidney disease; I12.9 Hypertensive chronic kidney disease with stage 1 through stage 4 chronic kidney disease, or unspecified chronic kidney disease; N18.3 Chronic kidney disease, stage 3 (moderate); I95.9 Hypotension, unspecified; Z66 Do not resuscitate
CPT/HCPCS: 36415; 51701; 70450; 70544; 70547; 70551; 71020; 80048; 80053; 80061; 81001; 81003; 83036; 84443; 84484; 85025; 85610; 85730; 86780; 87086; 93005; 93306; 96372; 96374; 96375; 99284; 99285

== ENCOUNTER 2017-03-26 12:54 | Outpatient (CLI) | payer MEDICARE, OTHER | END 2017-03-26 12:55 | LOC: EMS 12:54 | PROVIDERS: ATTEND Surgery | DX: I63.9 Cerebral infarction, unspecified (principal) | CPT/HCPCS: A0425; A0428 ==

== ENCOUNTER 2017-03-28 07:45 | Outpatient (CLI) | payer MEDICARE, OTHER ==
[2017-03-28 20:43] LABS: BILIRUBIN,URINE NEGATIVE (NEGATIVE)
[2017-03-28 21:08] LABS: UA w/ MICROSCOPIC CHARGE YES; WBC,URINE 0-3 /HPF (0-5)
[2017-03-28 21:09] LABS: UR CULTURE IF IND NOT INDICATED
== END 2017-03-28 07:46 | disposition home or self-care (01) ==
LOC: LAB.R 07:45
DX: N39.0 Urinary tract infection, site not specified (principal)
CPT/HCPCS: 81001; 81003; 87086

== ENCOUNTER 2017-04-13 08:00 | Outpatient (CLI) | payer MEDICARE, OTHER ==
[2017-04-13 17:43] LABS: BASOPHILS # (AUTO) 0.1 10^3/uL (0.0-0.1); BASOPHILS % (AUTO) 0.9 %; EOSINOPHILS # (AUTO) 0.2 10^3/uL (0.0-0.7); HCT - HEMATOCRIT 37.6 % (37.0-47.0); HGB - HEMOGLOBIN 12.6 g/dL (12.0-16.0); LYMPHOCYTES # (AUTO) 2.1 10^3/uL (1.5-3.5); LYMPHOCYTES % (AUTO) 16.9 %; MEAN CORPUSCULAR HEMOGLOBIN 28.6 pg (27.0-31.0); MEAN CORPUSCULAR HGB CONC 33.4 g/dL (32.0-36.0); MEAN CORPUSCULAR VOLUME 85.6 fL (81.0-99.0); MEAN PLATELET VOLUME 8.4 fL (7.9-10.8); MONOCYTES # (AUTO) 0.9 10^3/uL (0.0-1.0); MONOCYTES % (AUTO) 7.5 %; NEUTROPHILS % (AUTO) 72.7 %; NUCLEATED RED BLOOD CELLS AUTO 0.1 /100WBC; RED CELL DISTRIBUTION WIDTH 14.4 % (12.0-15.0); UNCORRECTED WHITE BLOOD COUNT 12.4 x10^3/uL; WHITE BLOOD COUNT 12.4 x10^3/uL (4.8-10.8)
== END 2017-04-13 08:01 | disposition home or self-care (01) ==
LOC: LAB.R 08:00
DX: D64.9 Anemia, unspecified (principal)
CPT/HCPCS: 85025

== ENCOUNTER 2017-04-19 08:00 | Outpatient (CLI) | payer MEDICARE, OTHER ==
[2017-04-19 08:51] LABS: BASOPHILS # (AUTO) 0.1 10^3/uL (0.0-0.1); BASOPHILS % (AUTO) 1.1 %; EOSINOPHILS # (AUTO) 0.3 10^3/uL (0.0-0.7); HCT - HEMATOCRIT 35.9 % (37.0-47.0); HGB - HEMOGLOBIN 12.5 g/dL (12.0-16.0); LYMPHOCYTES # (AUTO) 2.1 10^3/uL (1.5-3.5); LYMPHOCYTES % (AUTO) 20.4 %; MEAN CORPUSCULAR HGB CONC 34.8 g/dL (32.0-36.0); MEAN CORPUSCULAR VOLUME 83.4 fL (81.0-99.0); MEAN PLATELET VOLUME 7.8 fL (7.9-10.8); MONOCYTES # (AUTO) 0.7 10^3/uL (0.0-1.0); MONOCYTES % (AUTO) 6.9 %; NEUTROPHILS # (AUTO) 7.1 10^3/uL (1.5-6.6); NEUTROPHILS % (AUTO) 68.6 %; RED BLOOD COUNT 4.31 10^6/uL (4.20-5.40); RED CELL DISTRIBUTION WIDTH 14.6 % (12.0-15.0); UNCORRECTED WHITE BLOOD COUNT 10.3 x10^3/uL; WHITE BLOOD COUNT 10.3 x10^3/uL (4.8-10.8)
[2017-04-19 09:07] LABS: ALBUMIN/GLOBULIN RATIO 0.8 (1.0-2.2); BILIRUBIN,TOTAL 0.5 mg/dL (0.2-1.0); CALCIUM 9.1 mg/dL (8.5-10.3); CREATININE 1.2 mg/dL (0.4-1.0); POTASSIUM 3.8 mmol/L (3.5-5.0); TOTAL PROTEIN 7.2 g/dL (6.7-8.2)
[2017-04-19 09:17] LABS: HEMOGLOBIN A1C 0.82 g/dL
== END 2017-04-19 08:01 | disposition home or self-care (01) ==
LOC: LAB.R 08:00
DX: I12.9 Hypertensive chronic kidney disease with stage 1 through stage 4 chronic kidney disease, or unspecified chronic kidney disease (principal); E11.9 Type 2 diabetes mellitus without complications; N18.9 Chronic kidney disease, unspecified
CPT/HCPCS: 80053; 82043; 83036; 85025

== ENCOUNTER 2017-05-24 08:00 | Outpatient (CLI) | payer MEDICARE, OTHER ==
[2017-05-25 02:49] LABS: BILIRUBIN,URINE NEGATIVE (NEGATIVE); UA w/ MICROSCOPIC CHARGE YES
== END 2017-05-24 23:59 | disposition home or self-care (01) ==
LOC: LAB.R 08:00
DX: N39.0 Urinary tract infection, site not specified (principal)
CPT/HCPCS: 81001; 81003

== ENCOUNTER 2017-06-20 16:15 | Outpatient (CLI) | payer MEDICARE, OTHER ==
[2017-06-20 09:31] LABS: BASOPHILS # (AUTO) 0.1 10^3/uL (0.0-0.1); BASOPHILS % (AUTO) 0.7 %; EOSINOPHILS # (AUTO) 0.4 10^3/uL (0.0-0.7); EOSINOPHILS % (AUTO) 4.3 %; HCT - HEMATOCRIT 31.5 % (37.0-47.0); HGB - HEMOGLOBIN 10.8 g/dL (12.0-16.0); LYMPHOCYTES # (AUTO) 2.3 10^3/uL (1.5-3.5); LYMPHOCYTES % (AUTO) 22.5 %; MEAN CORPUSCULAR HEMOGLOBIN 28.6 pg (27.0-31.0); MEAN CORPUSCULAR HGB CONC 34.3 g/dL (32.0-36.0); MEAN CORPUSCULAR VOLUME 83.4 fL (81.0-99.0); MEAN PLATELET VOLUME 8.4 fL (7.9-10.8); MONOCYTES # (AUTO) 0.9 10^3/uL (0.0-1.0); MONOCYTES % (AUTO) 8.7 %; NEUTROPHILS # (AUTO) 6.5 10^3/uL (1.5-6.6); NEUTROPHILS % (AUTO) 63.8 %; RED BLOOD COUNT 3.78 10^6/uL (4.20-5.40); RED CELL DISTRIBUTION WIDTH 15.3 % (12.0-15.0); UNCORRECTED WHITE BLOOD COUNT 10.1 x10^3/uL; WHITE BLOOD COUNT 10.1 x10^3/uL (4.8-10.8)
[2017-06-20 09:42] LABS: ALBUMIN/GLOBULIN RATIO 1.1 (1.0-2.2); BILIRUBIN,TOTAL 0.6 mg/dL (0.2-1.0); CALCIUM 8.9 mg/dL (8.5-10.3); POTASSIUM 4.1 mmol/L (3.5-5.0); TOTAL PROTEIN 6.1 g/dL (6.7-8.2)
[2017-06-20 15:57] LABS: HEMOGLOBIN A1C 0.67 g/dL
== END 2017-06-20 16:16 | disposition home or self-care (01) ==
LOC: LAB.R 16:15
DX: E11.9 Type 2 diabetes mellitus without complications (principal); I48.91 Unspecified atrial fibrillation; N18.9 Chronic kidney disease, unspecified
CPT/HCPCS: 80053; 83036; 85025

== ENCOUNTER 2017-09-29 10:37 | Outpatient (CLI) | payer MEDICARE, OTHER | END 2017-09-29 10:38 | disposition home or self-care (01) | LOC: LAB.R 10:37 | PROVIDERS: ATTEND Physician Assistant Medical | DX: R33.9 Retention of urine, unspecified (principal); R32 Unspecified urinary incontinence | CPT/HCPCS: 87077; 87086 ==

== ENCOUNTER 2018-01-11 13:30 | Outpatient (CLI) | payer MEDICARE, OTHER | END 2018-01-11 13:31 | disposition critical access hospital (66) | LOC: EMS 13:30 | PROVIDERS: ATTEND Surgery | DX: R30.9 Painful micturition, unspecified (principal) | CPT/HCPCS: A0425; A0429 ==

== ENCOUNTER 2018-01-11 13:49 | Emergency (ER) | payer MEDICARE, OTHER ==
--- NOTE | 2018-01-11 13:52 | ED Physician Documentation ---
PD HPI FEMALE - Stated complaint Stated Complaint: FEM - History obtained from History obtained from: Patient, EMS - History of Present Illness Timing - onset: Other (82-year-old woman anticoagulated on warfarin presents with concern for UTI from the [facility] care facility. Reportedly she has had urinary frequency dysuria and suprapubic pain for a few days. They did a dip there which was positive for leukocytes. There is no report of fever or worsening of her memory.) Review of Systems Unable to obtain: Dementia PD PAST MEDICAL HISTORY - Past Medical History Cardiovascular: Hypertension, High cholesterol, Atrial fibrillation Respiratory: None Neuro: CVA Endocrine/Autoimmune: Type 2 diabetes GI: None STATISTICAL CONSULTANT: None : None HEENT: None Psych: None Musculoskeletal: Osteoarthritis Derm: None - Past Surgical History Past Surgical History: No General: Cholecystectomy, Appendectomy /STATISTICAL CONSULTANT: Hysterectomy HEENT: Tonsil/Adenoidectomy - Present Medications Home Medications: Ambulatory Orders Medication Instructions Recorded Confirmed Naproxen Sodium [Aleve] 220 mg PO BID PRN 03/22/17 03/22/17 Acetaminophen 2 tab PO TID PRN 01/11/18 01/11/18 Amox/Clav 875/125 [Augmentin] 1 each PO Q12H #10 tablet 01/11/18 Atorvastatin Calcium 1 tab PO DAILY 01/11/18 01/11/18 Bethanechol Chloride 20 mg PO QID 01/11/18 01/11/18 Docusate Calcium 1 cap PO DAILY 01/11/18 01/11/18 Gabapentin 1 cap PO BID 01/11/18 01/11/18 Insulin Glargine [Lantus Solostar] 10 units SQ DAILY 01/11/18 01/11/18 Mirtazapine 15 mg PO DAILY 01/11/18 01/11/18 Polyethylene Glycol 3350 [Miralax] 8.5 oz PO DAILY 01/11/18 01/11/18 Tamsulosin [Flomax] 1 tab PO DAILY 01/11/18 01/11/18 Warfarin Sodium [Coumadin] 1 tab PO DAILY 01/11/18 01/11/18 Warfarin Sodium [Coumadin] 1 tab PO DAILY 01/11/18 01/11/18 - Allergies Allergies/Adverse Reactions: Allergies Allergy/AdvReac Type Severity Reaction Status Date / Time Sulfa (Sulfonamide Allergy Unknown Verified 04/18/18 14:10 Antibiotics) - Social History Does the pt smoke?: No Smoking Status: Never smoker Does the pt drink ETOH?: No Does the pt have substance abuse?: No - POLST Patient has POLST: No POLST Status: Full Code PD ED PE NORMAL - Vitals Vital signs reviewed: Yes - General General: Other (Pleasant, alert and oriented 1, cooperative.) - Abdomen Abdomen: Soft, Non tender - Neuro Eye Opening: Spontaneous Motor: Obeys Commands Verbal: Confused GCS Score: 14 - Psych Psych: Normal mood, Normal affect Results - Vitals Vitals: Vital Signs - 24 hr 01/11/18 14:07 Temperature 36.6 C Heart Rate 51 L Respiratory 14 Rate Blood Pressure 134/49 H O2 Saturation 98 Oxygen O2 Source Room air - Labs Labs: Laboratory Tests 01/11/18 01/11/18 14:00 14:22 Whole Blood INR 2.8 H Urine Color YELLOW Urine Clarity CLOUDY Urine pH 7.0 Ur Specific Shirley 1.025 Urine Protein >=300 H Urine Glucose (UA) NEGATIVE Urine Ketones NEGATIVE Urine Occult Blood MODERATE H Urine Nitrite NEGATIVE Urine Bilirubin NEGATIVE Urine Urobilinogen 0.2 (NORMAL) Ur Leukocyte Esterase MODERATE H Urine RBC 11-25 H Urine WBC >25 H Urine WBC Clumps PRESENT Ur Squamous Epith Cells NONE SEEN Urine Bacteria Many H Ur Microscopic Review INDICATED Urine Culture Comments INDICATED Departure - Departure Disposition: 01 Home, Self Care Clinical Impression: Cystitis Condition: Good Record reviewed to determine appropriate education?: Yes Instructions: ED UTI Cystitis Female Prescriptions: Amox/Clav 875/125 [Augmentin] 1 each PO Q12H #10 tablet Comments: We will culture your urine, the results should be done in 48-72 hours. If an antibiotic change is necessary we will call you. Return if worse in the meantime, especially if you develop increasing flank pain, fevers, or cannot keep down the medication. Often times when you start antibiotics while you are taking anticoagulants such as Coumadin or warfarin, your INR will go up. You need to have your INR checked frequently while on the antibiotics. Have it checked in 3 days, again in 6 days, and at least weekly while you are on antibiotics. Dose adjustments of your anticoagulants may be necessary.
[2018-01-11 14:14] LABS: BILIRUBIN,URINE NEGATIVE (NEGATIVE); GLUCOSE, URINE (UA) NEGATIVE (NEGATIVE); KETONES,URINE (UA) NEGATIVE (NEGATIVE); LEUKOCYTE ESTERASE, URINE MODERATE (NEGATIVE); NITRITE,URINE NEGATIVE (NEGATIVE); OCCULT BLOOD,URINE MODERATE (NEGATIVE); PROTEIN,URINE >=300 mg/dL (NEGATIVE); UROBILINOGEN,URINE 0.2 (NORMAL) E.U./dL (NORMAL)
[2018-01-11 14:18] LABS: CLARITY,URINE CLOUDY (CLEAR)
[2018-01-11 14:19] LABS: BACTERIA,URINE Many /HPF (None Seen); SQUAMOUS EPITHELIAL CELL,UR NONE SEEN (<= Few); WBC CLUMPS,URINE PRESENT
[2018-01-11] MEDS ORDERED: AMOX/CLAV 875 MG/125 MG TABLET PO STA (14:45)
[2018-01-11 17:52] VITALS: BP 126/56
== END 2018-01-11 16:45 | disposition home or self-care (01) ==
LOC: EDUNIT# → ED 13:49
DX: I10 Essential (primary) hypertension (principal); E78.00 Pure hypercholesterolemia, unspecified; E11.9 Type 2 diabetes mellitus without complications; Z86.73 Personal history of transient ischemic attack (TIA), and cerebral infarction without residual deficits; I48.91 Unspecified atrial fibrillation; Z79.01 Long term (current) use of anticoagulants
CPT/HCPCS: 51701; 81001; 85610; 87086; 99283; A9270; 81003; 87077

== ENCOUNTER 2018-01-11 16:49 | Outpatient (CLI) | payer MEDICARE, OTHER | END 2018-01-11 16:50 | disposition home or self-care (01) | LOC: EMS 16:49 | PROVIDERS: ATTEND Surgery | DX: N39.0 Urinary tract infection, site not specified (principal); F03.90 Unspecified dementia, unspecified severity, without behavioral disturbance, psychotic disturbance, mood disturbance, and anxiety; Z74.01 Bed confinement status | CPT/HCPCS: A0425; A0428 ==

== ENCOUNTER 2018-01-24 08:00 | Outpatient (CLI) | payer MEDICARE, OTHER ==
[2018-01-24 13:21] LABS: BILIRUBIN,URINE NEGATIVE (NEGATIVE); GLUCOSE, URINE (UA) NEGATIVE (NEGATIVE); KETONES,URINE (UA) NEGATIVE (NEGATIVE); LEUKOCYTE ESTERASE, URINE MODERATE (NEGATIVE); NITRITE,URINE POSITIVE (NEGATIVE); OCCULT BLOOD,URINE SMALL (NEGATIVE); PH,URINE 5.5 PH (5.0-7.5); PROTEIN,URINE 30 mg/dL (NEGATIVE); UROBILINOGEN,URINE 0.2 (NORMAL) E.U./dL (NORMAL)
[2018-01-24 13:26] LABS: CLARITY,URINE CLEAR (CLEAR)
[2018-01-24 13:55] LABS: INR 3.2 (0.8-1.2); PT - PROTHROMBIN TIME 34.7 secs (9.9-12.6)
[2018-01-24 14:58] LABS: BACTERIA,URINE Many /HPF (None Seen); SQUAMOUS EPITHELIAL CELL,UR MOD Squamous (<= Few); WBC CLUMPS,URINE PRESENT
== END 2018-01-24 08:01 | disposition home or self-care (01) ==
LOC: LAB.WCP 08:00
PROVIDERS: ATTEND Family Medicine
DX: Z79.01 Long term (current) use of anticoagulants (principal); N39.0 Urinary tract infection, site not specified
CPT/HCPCS: 36415; 81001; 85610; 87086

== ENCOUNTER 2018-02-09 08:00 | Outpatient (CLI) | payer MEDICARE, OTHER | END 2018-02-09 08:01 | LOC: LAB.WCP 08:00 | PROVIDERS: ATTEND Family Medicine | DX: L89.609 Pressure ulcer of unspecified heel, unspecified stage (principal) | CPT/HCPCS: 87070; 87181; 87205 ==

== ENCOUNTER 2018-02-26 19:35 | Outpatient (CLI) | payer MEDICARE, OTHER | END 2018-02-26 19:36 | disposition critical access hospital (66) | LOC: EMS 19:35 | PROVIDERS: ATTEND Surgery | DX: M25.551 Pain in right hip (principal); W18.39XA Other fall on same level, initial encounter; Y92.092 Bedroom in other non-institutional residence as the place of occurrence of the external cause | CPT/HCPCS: A0425; A0429 ==

== ENCOUNTER 2018-02-26 19:51 | Emergency (ER) | payer MEDICARE, OTHER ==
--- NOTE | 2018-02-26 21:12 | ED Physician Documentation ---
PD HPI Fall - Stated complaint Stated Complaint: GLF, R HIP PAIN - Chief complaint Chief Complaint: Trauma Ext - History obtained from History obtained from: Patient - History of Present Illness Mechanism of injury: Slipped (Fell while transferring from commode to chair.) Fall distance: Sitting position Where injury occurred: Other ([facility] Injury(ies) location: Left Lower Extremity - Additional information Additional information: The patient is an 82-year-old female who arrives via ambulance for evaluation after falling at [facility] where she resides. She was transferring from the commode to wheelchair, when she fell to the floor. When being assisted to the chair by staff, she was complaining of pain in her hip. History from the patient is not reliable due to her dementia. Review of his past medical record reveals a history of atrial fibrillation and diabetes. Review of Systems Unable to obtain: Dementia Cardiac: denies: Chest pain / pressure Respiratory: denies: Dyspnea GI: reports: Abdominal Pain (Reports mild lower abdominal discomfort.). denies : Vomiting : denies: Dysuria Musculoskeletal: reports: Extremity pain (Reports mild discomfort in her left leg/knee.). denies: Neck pain, Back pain Neurologic: reports: Generalized weakness, Confused (chronically). 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 : None HEENT: None Psych: None Musculoskeletal: Osteoarthritis Derm: None - Past Surgical History Past Surgical History: No General: Cholecystectomy, Appendectomy /HOT MILL OBSERVER: Hysterectomy HEENT: Tonsil/Adenoidectomy - Present Medications Home Medications: Ambulatory Orders Medication Instructions Recorded Confirmed Naproxen Sodium [Aleve] 220 mg PO BID PRN 03/22/17 03/22/17 Acetaminophen 2 tab PO TID PRN 01/11/18 01/11/18 Amox/Clav 875/125 [Augmentin] 1 each PO Q12H #10 tablet 01/11/18 Atorvastatin Calcium 1 tab PO DAILY 01/11/18 01/11/18 Bethanechol Chloride 20 mg PO QID 01/11/18 01/11/18 Docusate Calcium 1 cap PO DAILY 01/11/18 01/11/18 Gabapentin 1 cap PO BID 01/11/18 01/11/18 Insulin Glargine [Lantus Solostar] 10 units SQ DAILY 01/11/18 01/11/18 Mirtazapine 15 mg PO DAILY 01/11/18 01/11/18 Polyethylene Glycol 3350 [Miralax] 8.5 oz PO DAILY 01/11/18 01/11/18 Tamsulosin [Flomax] 1 tab PO DAILY 01/11/18 01/11/18 Warfarin Sodium [Coumadin] 1 tab PO DAILY 01/11/18 01/11/18 Warfarin Sodium [Coumadin] 1 tab PO DAILY 01/11/18 01/11/18 - Allergies Allergies/Adverse Reactions: Allergies Allergy/AdvReac Type Severity Reaction Status Date / Time Sulfa (Sulfonamide Allergy Unknown Verified 02/26/18 19:57 Antibiotics) - Living Situation Living Arrangement: reports: Assisted living ([facility].) - Social History Does the pt smoke?: No Smoking Status: Never smoker Does the pt drink ETOH?: No Does the pt have substance abuse?: No - Immunizations Immunizations are current?: Yes - POLST Patient has POLST: No POLST Status: Full Code PD ED PE NORMAL - Vitals Vital signs reviewed: Yes (Systolic hypertension.) - General General: Other (Alert, deconditioned, elderly female, who is confused, consistent with dementia.) - HEENT HEENT: Atraumatic, EOMI, Other (Dry oral mucosa.) - Neck Neck: No bony TTP, No JVD - Cardiac Cardiac: RRR - Respiratory Respiratory: No respiratory distress, Clear bilaterally - Abdomen Abdomen: Soft, Non tender - Back Back: No CVA TTP, No spinal TTP - Derm Derm: No rash - Extremities Extremities: No tenderness to palpate, No edema, No calf tenderness / cord, Other (Decreased range of motion of major joints, including hips bilaterally, due to muscular spasticity. There is slight discomfort with flexion and extension of the left hip, without any apparent discomfort with internal and external rotation. Distal neurovascular is intact.) - Neuro Neuro: Other (Alert, but disoriented, stating it is November 2019. She tells me her mother is standing next to her, pointing to the left side of the gurney. She is generally deconditioned, without focal motor or sensory deficit.) Results - Vitals Vitals: Vital Signs - 24 hr 02/26/18 02/26/18 21:40 23:07 Heart Rate 106 H 106 H Respiratory 18 18 Rate Blood Pressure 153/65 H 164/67 H O2 Saturation 99 95 Oxygen O2 Source Room air - Labs Labs: Laboratory Tests 02/26/18 02/26/18 02/26/18 21:34 21:53 21:53 WBC 6.9 RBC 3.66 L Hgb 10.3 L Hct 31.6 L MCV 86.4 MCH 28.1 MCHC 32.6 RDW 15.3 H Plt Count 197 MPV 8.2 Neut # (Auto) 4.1 Lymph # (Auto) 1.9 Wharton # (Auto) 0.6 Eos # (Auto) 0.2 Baso # (Auto) 0.1 Absolute Nucleated RBC 0.00 Nucleated RBC % 0.0 Sodium 139 Potassium 3.6 Chloride 104 Carbon Dioxide 29 Anion Gap 6.0 BUN 26 H Creatinine 1.1 H Estimated GFR (MDRD) 47 L Glucose 131 H Calcium 8.8 Total Bilirubin 0.5 AST 21 ALT 18 Alkaline Phosphatase 65 Total Protein 6.5 L Albumin 3.3 Globulin 3.2 Albumin/Globulin Ratio 1.0 Lipase 36 Urine Color YELLOW Urine Clarity CLEAR Urine pH 6.0 Ur Specific [place] 1.020 Urine Protein NEGATIVE Urine Glucose (UA) NEGATIVE Urine Ketones NEGATIVE Urine Occult Blood TRACE-LYSE Urine Nitrite NEGATIVE Urine Bilirubin NEGATIVE Urine Urobilinogen 0.2 (NORMAL) Ur Leukocyte Esterase NEGATIVE Ur Microscopic Review NOT INDICATED Urine Culture Comments NOT INDICATED - Rads (name of study) Left hip Radiology: Prelim report reviewed, EMP read contemporaneously, See rad report ( No evidence of fracture or dislocation. Plain films can be insensitive for detection of hip fracture in elderly patients. If there is concern for occult proximal femur fracture, MRI could be used for further evaluation.) PD MEDICAL DECISION MAKING - ED course Complexity details: reviewed old records, reviewed results, re-evaluated patient , considered differential, d/w patient ED course: The patient's evaluation revealed no evidence of fracture or other acute bony abnormality. X-ray of her left hip is negative, and she did demonstrate ability to stand at the bedside, bearing weight on each of her legs. Her hydration status appeared volume depleted, and she was borderline tachycardic upon initial arrival. There is no evidence of urinary tract infection, with a negative urinalysis, and white count is normal. Treatment in the emergency department included administration of normal saline 1 L IV. She was discharged back to [facility], and was transported by [facility] ambulance. Departure - Departure Disposition: 01 Home, Self Care Clinical Impression: Dehydration Fall Qualifiers: Encounter type: initial encounter Qualified Code(s): W19.XXXA - Unspecified fall, initial encounter Dementia Qualifiers: Dementia type: unspecified type Dementia behavioral disturbance: without behavioral disturbance Qualified Code(s): F03.90 - Unspecified dementia without behavioral disturbance Condition: Stable Instructions: ED Mechanical Fall Follow-Up: Juan Antonio Garcia MD [Provider Admit Priv/Credential] - Comments: Drink plenty of fluids. Follow up with your primary physician within 2 weeks. Call to schedule appointment. Return to the emergency department if you develop increasing pain, persistent falling, or otherwise worsening symptoms. Discharge Date/Time: 02/26/18 23:09
[2018-02-26] MEDS ORDERED: SODIUM CHLORIDE 0.9% 1,000 ML IV ONE (21:43)
[2018-02-26 21:50] LABS: BILIRUBIN,URINE NEGATIVE (NEGATIVE); CLARITY,URINE CLEAR (CLEAR); GLUCOSE, URINE (UA) NEGATIVE (NEGATIVE); KETONES,URINE (UA) NEGATIVE (NEGATIVE); LEUKOCYTE ESTERASE, URINE NEGATIVE (NEGATIVE); NITRITE,URINE NEGATIVE (NEGATIVE); OCCULT BLOOD,URINE TRACE-LYSE (NEGATIVE); PROTEIN,URINE NEGATIVE (NEGATIVE); UROBILINOGEN,URINE 0.2 (NORMAL) E.U./dL (NORMAL)
[2018-02-26 22:07] LABS: BASOPHILS # (AUTO) 0.1 10^3/uL (0.0-0.1); EOSINOPHILS # (AUTO) 0.2 10^3/uL (0.0-0.7); EOSINOPHILS % (AUTO) 3.4 %; HGB - HEMOGLOBIN 10.3 g/dL (12.0-16.0); LYMPHOCYTES # (AUTO) 1.9 10^3/uL (1.5-3.5); LYMPHOCYTES % (AUTO) 27.9 %; MEAN CORPUSCULAR HEMOGLOBIN 28.1 pg (27.0-31.0); MEAN CORPUSCULAR HGB CONC 32.6 g/dL (32.0-36.0); MEAN CORPUSCULAR VOLUME 86.4 fL (81.0-99.0); MEAN PLATELET VOLUME 8.2 fL (7.9-10.8); MONOCYTES # (AUTO) 0.6 10^3/uL (0.0-1.0); MONOCYTES % (AUTO) 8.7 %; NEUTROPHILS # (AUTO) 4.1 10^3/uL (1.5-6.6); PLT - PLATELET COUNT 197 10^3/uL (130-450); RED BLOOD COUNT 3.66 10^6/uL (4.20-5.40); RED CELL DISTRIBUTION WIDTH 15.3 % (12.0-15.0); WHITE BLOOD COUNT 6.9 x10^3/uL (4.8-10.8)
--- NOTE | 2018-02-26 22:15 | XRAY Report ---
EXAM: LEFT HIP AND PELVIS RADIOGRAPHY EXAM DATE: 02/26/2018 09:31 PM. HISTORY: Left hip pain after falling. COMPARISONS: None. TECHNIQUE: 2 views. FINDINGS: Bones: No fracture or focal bony lesion. Joints: No evidence of dislocation. There is right greater than left hip degenerative disease. Soft Tissues: No unexpected soft tissue findings. IMPRESSION: No evidence of fracture or dislocation. Plain film can be insensitive for detection of h ip fracture in elderly patients. If there is concern for occult proximal femur fracture, MRI could be used for further evaluation. [facility] Referring Provider Line: [phone] SITE ID: [id number]
[2018-02-26 22:19] LABS: ALBUMIN 3.3 g/dL (3.2-5.5); BILIRUBIN,TOTAL 0.5 mg/dL (0.2-1.0); CALCIUM 8.8 mg/dL (8.5-10.3); CREATININE 1.1 mg/dL (0.4-1.0); TOTAL PROTEIN 6.5 g/dL (6.7-8.2)
[2018-02-26 23:08] VITALS: BP 164/67
== END 2018-02-26 23:09 | disposition home or self-care (01) ==
LOC: EDUNIT# → ED 19:51
DX: E86.0 Dehydration (principal); W19.XXXA Unspecified fall, initial encounter; F03.90 Unspecified dementia, unspecified severity, without behavioral disturbance, psychotic disturbance, mood disturbance, and anxiety; I10 Essential (primary) hypertension; E78.00 Pure hypercholesterolemia, unspecified; I48.91 Unspecified atrial fibrillation; E11.9 Type 2 diabetes mellitus without complications; Z79.4 Long term (current) use of insulin; Z79.01 Long term (current) use of anticoagulants
CPT/HCPCS: 36415; 80053; 81001; 81003; 83690; 85025; 87086; 96360; 99284

== ENCOUNTER 2018-02-26 23:14 | Outpatient (CLI) | payer MEDICARE, OTHER | END 2018-02-26 23:15 | disposition home or self-care (01) | LOC: EMS 23:14 | PROVIDERS: ATTEND Surgery | DX: M25.552 Pain in left hip (principal); M79.671 Pain in right foot; I69.954 Hemiplegia and hemiparesis following unspecified cerebrovascular disease affecting left non-dominant side; F03.90 Unspecified dementia, unspecified severity, without behavioral disturbance, psychotic disturbance, mood disturbance, and anxiety; W19.XXXA Unspecified fall, initial encounter | CPT/HCPCS: A0425; A0428 ==

== ENCOUNTER 2018-03-21 21:16 | Outpatient (CLI) | payer MEDICARE, OTHER ==
--- NOTE | 2018-03-21 21:23 | CONSULTATION NOTE ---
Palliative Care Consultation - Referral Referring Provider: Dr Garcia Time of Visit: 03/21/2018. 11:20 - 12:50 Referral setting: Assisted living (Seen in home setting due to taxing and considerable effort required to leave the home due to immobility and wheelchair bound from left-sided weakness secondary to CVA.) Referral Reason: Dementia decline / Pal Care - Information Sources Records reviewed: RN notes reviewed, Previous records reviewed History/Review of Systems obtained from: Patient, Family, Nursing Exam limitations: Clinical condition (Dementia, short-term memory deficits) - History of Present Illness Brief History of Present Illness: -Thank you, Dr. Garcia, for asking the palliative care consult service to be involved in the care of your patient. I am asked to provide support regarding a recent decline in functional status, an increase in falls, and advanced care planning. -Pleasant 82-year-old woman with advancing dementia and L hemiparesis following a CVA a year ago, originally at [facility], now living at [facility]. Her son, Carlos, is at today's visit. He lives in [place], [place], teaches Graphics in Business Education at [employer] in [place]. -Medical history: Dementia without behaviors, CVA with residual L side hemiparesis x 1 year; atrial fibrillation on anticoagulation, CKD III, HLD, HTN , DM II with insulin dependence, diabetic peripheral neuropathy, R heel pressure wound Stage III, osteoarthritis. -Patient is on Home Health with RN services for wound care on R heel. -Pressure wound on R heel was treated with cephalexin for infection in January, ending February 25, 2018. -PCP was recently changed from Dr Bailey to Dr Garcia. -Patient had CVA one year ago, with residual L side hemiparesis, non-ambulatory , requires full assist for transfers and ADLs, incontinent of B/B. -After her stroke, she was at [facility] for rehab, then transferred to [facility] long-term [facility]. Family was not happy with her there, and they moved her to [facility] -Most recent visit to ED was 02/26/18 for fall during transfer and pain to L hip. Radiographs and CT scan negative. -Pt was given IV fluids while at ED due to mild dehydration. -First mild signs of patient's dementia started around 10 years ago, but her function and status has steadily worsened over the past few months. -Palliative care has been recommended due to slow functional and cognitive decline, increase in falls and weight loss. -Weight 187.8 lbs on 02/25/18, down from 196.6 lbs on 10/06/17. 8.8 lb loss or 4%. -Patient is pleasant, maintains eye contact, conversant, cooperative during this exam. -Weak voice, she's always had a soft voice according to her son, but it's much weaker now. -Pain from L side hemiparesis, also R hip pain secondary to osteoarthritis, had refused hip replacement in the past. Medical/Surgical History - Past Medical History Cardiovascular: reports: Hypertension, High cholesterol, Atrial fibrillation ( on anticoagulation) Respiratory: reports: None Neuro: reports: Dementia, CVA (2017) Endocrine/Autoimmune: reports: Type 2 diabetes GI: reports: None, Other (h/o hernia, location unknown) HOSPICE/HOME HEALTH AIDE: reports: None : reports: None HEENT: reports: None Psych: reports: None Musculoskeletal: reports: Osteoarthritis Derm: reports: None MRSA Hx?: No - Past Surgical History General: reports: Cholecystectomy, Appendectomy, Other (hernia repair, date unknown) /HOSPICE/HOME HEALTH AIDE: reports: Hysterectomy HEENT: reports: Tonsil/Adenoidectomy - Substance History Use: Uses substance without health or social issues: NONE Tobacco Details: Cigarettes (Never smoker) Social History - Living Situation Living arrangement: Assisted living ([facility] dementia unit) Living Situation: With caregiver(s) Support System: Son/Carlos AGARWAL, visits every other week with his . He lives in [place], [place]. He is quite attentive. Other son is living in patient's house, infrequently visits. Family History - Family History Family History Comment/Other: Her mother in her 70s, cause unknown. Father's age and cause of unknown. Her brother 5 years ago, dementia and etoh abuse. Her 5 years ago, age 92-93, complications of dementia. Her son Juan R age 62 , complications of asthma. Medications/Allergies - Medications Home Medications: Ambulatory Orders Medication Instructions Recorded Confirmed Acetaminophen 650 mg PO TID PRN 01/11/18 03/24/18 Atorvastatin Calcium 20 mg PO QPM 01/11/18 03/24/18 Bethanechol Chloride 20 mg PO QID 01/11/18 03/24/18 Gabapentin 300 mg PO BID 01/11/18 03/24/18 Insulin Glargine [Lantus Solostar] 10 units SQ DAILY 01/11/18 03/24/18 Mirtazapine 7.5 mg PO DAILY 01/11/18 03/24/18 Polyethylene Glycol 3350 [Miralax] 8.5 oz PO BID 01/11/18 03/24/18 Tamsulosin [Flomax] 0.4 mg PO DAILY 01/11/18 03/24/18 Acetaminophen 650 mg PO Q6H PRN 03/24/18 03/24/18 Docusate Sodium 100 mg PO BID 03/24/18 03/24/18 Warfarin Sodium 1.25 mg PO .TUE, Tue03/24/18 03/24/18 Warfarin Sodium 2.5 mg PO .T,W,TH,S,S 03/24/18 03/24/18 - Allergies Allergies/Adverse Reactions: Allergies Allergy/AdvReac Type Severity Reaction Status Date / Time Sulfa (Sulfonamide Allergy Unknown Verified 02/26/18 19:57 Antibiotics) Review of Systems - Constitutional Constitutional: reports: Weight loss (187.8 lbs 02/25/18. 193.6 lbs 11/01/17. 196.6 lbs /08/13. 203.4 lbs 09/08/. 4% weight loss since September 2017.). denies: Poor appetite - Eyes Eyes: reports: Vision loss (on L side, post-CVA) - Ears, Nose & Throat Ears, Nose & Throat: denies: Hearing loss - Cardiovascular Cardiovascular: denies: Chest pain, Decr. exercise tolerance - Respiratory Respiratory: denies: Cough, SOB at rest, SOB with exertion - Gastrointestinal Gastrointestinal: denies: Constipation, Diarrhea, Change in bowel habits - Genitourinary Genitourinary: denies: Dysuria, Frequency - Psychiatric Psychiatric: reports: Depression (mirtazapine low dose), Other (h/o social anxiety; not comfortable in crowds) - Endocrine Endocrine: reports: Intolerance to cold (persistently c/o feeling cold) Physical Exam - Vital Signs Temperature: 96.5 F Pulse Rate: 51 O2 Saturation: 99 (room air) Blood Pressure: 130/64 - Physical Exam General Appearance: positive: No acute distress, Alert Eyes Bilateral: positive: EOMI, No lid inflammation, Conjunctivae nml, No scleral icterus ENT: positive: No signs of dehydration Neck: positive: Trachea midline Cardiovascular: positive: Regular rate & rhythm Respiratory: positive: Diminished throughout (clear) Skin: positive: Pressure wound (R heel Stage III) Extremities: positive: Pedal edema (mild) Neurologic/Psychiatric: positive: Mood/affect nml, Disoriented to time Palliative Care - POLST Patient has POLST: Yes POLST Status: DNR, Comfort Measures Pain: No pain Tiredness/Fatigue: Mild (1-3) Drowsiness/Sedation: None Nausea: None Depression: None Anxiety: Mild (1-3) Dyspnea: None Anorexia: None Performance Status: Residual L side hemiparesis with LUE pain, from CVA a year ago. Non-ambulatory, requires full assist for transfers and ADLs, incontinent of B/B. Verbal, speaks in full sentences, weak voice, pleasant and interactive, maintains eye contact. Able to feed herself with cueing. - Palliative Care Discussion: Patient grew [place] in [place]. She was 5 years ago. 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 -Her eldest son age 62. Son, Carlos, who is her DPOA, is at today's visit. He and his have lived in [place], [place], for 17 years. He teaches Business Ed/graphic arts at [employer] in [place]. He and his visit the patient every other week. -Her other son lived with her in [place] for 3 years prior to her move to [facility]. He doesn't visit patient often, according to son Carlos. -Carlos reports patient has no memory of anything during the past 10 years. -She was always very responsible with paying bills on time, etc, but 1 year prior to her CVA, started payiing bills late, being more forgetful, doing things out of character for her. -Carlos reports she would never want to be like this. She "wouldn't grab a gun " but wouldn't mind "not being alive." -He feels that if patient had her way, she'd be on no medications and if she couldn't feed herself, then "oh well." In the end, she would not want to be here. If there were a choice between having a stroke or taking her life....take her life. -Goals of care are to keep her comfortable, cared for, and safe, and let nature take its course. No transfer to hospital. Impression and Recommendations - Palliative Care Impression: Pleasant 82-year-old woman with advancing dementia and L hemiparesis following a CVA a year ago, originally at [facility], now living at [facility]. She is currently relatively stable within a context of steady decline in functionality and cognition, increasingly evident in the past month. Family wants her kept comfortable with no transfer to hospital. Palliative care will monitor and offer support, and transition to Hospice when appropriate. Recommendations/Counseling Done: Dementia without behaviors: Steady decline in cognition and functionality, especially over past month. L side hemiparesis s/p CVA: Continue with brace for LUE support. Tylenol 650mg TID routine for pain control, plus Tylenol as needed. Constipation: Well controlled, has regular bowel movements. Continue Miralax half-dose BID and docusate. DMII: Controlled on Lantus 10 units daily. BGs checked once a day. Chronic atrial fibrillation: Continue Coumadin, currently 12.5 mg M,F and 2.5 mg T,W,Th,S,S. PCP manages dosing. Not on meds for rate control. Urinary retention: Controlled on Tamsulosin and bethanechol. Weight loss: 4% weight loss in 6 months: 196.6 lbs September 2017, 187.8 lbs 02/25. Appetite is good. Patient is on 7.5mg mirtazapine. R heel pressure wound: Healing. Home Health RN manages wound care. Advanced care planning: POLST in place, originally signed 2017, reviewed today with no changes: DNR and comfort care. Goals of care are to keep her comfortable, cared for, and safe, and let nature take its course. No transfer to hospital. Follow up 4-6 weeks and as needed. Time Spent: 90 minutes were spent with more than 50% of the time spent on counseling, education, and coordination of care.
== END 2018-03-21 21:17 | disposition home or self-care (01) ==
LOC: PC 21:16
PROVIDERS: ATTEND Nurse Practitioner
DX: Z51.5 Encounter for palliative care (principal); F03.90 Unspecified dementia, unspecified severity, without behavioral disturbance, psychotic disturbance, mood disturbance, and anxiety; I69.354 Hemiplegia and hemiparesis following cerebral infarction affecting left non-dominant side; E11.9 Type 2 diabetes mellitus without complications; I48.91 Unspecified atrial fibrillation; R63.4 Abnormal weight loss; Z79.4 Long term (current) use of insulin; Z79.01 Long term (current) use of anticoagulants; Z66 Do not resuscitate

== ENCOUNTER 2018-05-25 14:57 | Outpatient (CLI) | payer MEDICARE, OTHER ==
--- NOTE | 2018-05-25 18:17 | CONSULTATION NOTE ---
Palliative Care Follow Up - Referral Referring Provider: Dr Garcia Time of Visit: 05/25/2018. 10:30 - 11:10. Referral setting: Assisted living (Seen in home setting due to taxing and considerable effort required to leave the home due to immobility and wheelchair bound from left sided weakness secondary to CVA.) Referral Reason: Weight loss - Information Sources Records reviewed: Previous records reviewed History/Review of Systems obtained from: Patient, Family, Nursing Exam limitations: Clinical condition (dementia; short term memory deficits) - History of Present Illness Update Brief HPI Update: -Pleasant 82-year-old woman with advancing dementia and L hemiparesis following a CVA a year ago, originally at [facility], now living at [facility]. Her R heel wound is being managed by Home Health nursing. -Medical history: Dementia without behaviors, CVA with residual L side hemiparesis x 1 year; atrial fibrillation on anticoagulation, CKD III, HLD, HTN , DM II with insulin dependence, diabetic peripheral neuropathy, R heel pressure wound Stage III, osteoarthritis. -The patient is sleeping soundly, but was finally roused and able to participate in the visit. -She is pleasant and articulate although a little groggy due to being woken from her late-morning nap. -She has no complaints of pain, including her chronic hip pain. -The presure wound on R heel is improving but wound care is a challenge due to "anticipatory pain" and the patient pulling her foot away during wound care. -Nursing finds it easier to do the wound care when patient is sleeping, which fortunately occurs frequently. -Patient has been steadily losing weight, from 203.4 lbs Dc 2016, 196.6 lbs in September 2017 to 181.2 lbs on 05/03/18. That is 7.8% since September, 10.9% since August. She is on mirtazapine. Refer to the Palliative Care section for more on the weight loss. Social History - Living Situation Living arrangement: Assisted living ([facility] dementia unit) Living Situation: With caregiver(s) Support System: Son/DPOA, Carlos, visits every other week with his . He lives in [facility] and is quite attentive. Patient's other son, Nima, lives in the patient's house but visits infrequently. Medications/Allergies - Medications Home Medications: Ambulatory Orders Medication Instructions Recorded Confirmed Acetaminophen 650 mg PO TID PRN 01/11/18 05/26/18 Atorvastatin Calcium 20 mg PO QPM 01/11/18 05/26/18 Bethanechol Chloride 20 mg PO QID 01/11/18 05/26/18 Gabapentin 300 mg PO BID 01/11/18 05/26/18 Insulin Glargine [Lantus Solostar] 10 units SQ DAILY 01/11/18 05/26/18 Mirtazapine 7.5 mg PO DAILY 01/11/18 05/26/18 Polyethylene Glycol 3350 [Miralax] 8.5 oz PO BID 01/11/18 05/26/18 Tamsulosin [Flomax] 0.4 mg PO DAILY 01/11/18 05/26/18 Acetaminophen 650 mg PO Q6H PRN 03/24/18 05/26/18 Docusate Sodium 100 mg PO BID 03/24/18 05/26/18 Warfarin Sodium 1.25 mg PO .TUE, Tue03/24/18 05/26/18 Warfarin Sodium 2.5 mg PO .T,W,TH,S,S 03/24/18 05/26/18 - Allergies Allergies/Adverse Reactions: Allergies Allergy/AdvReac Type Severity Reaction Status Date / Time Sulfa (Sulfonamide Allergy Unknown Verified 02/26/18 19:57 Antibiotics) Review of Systems - Constitutional Constitutional: reports: Weight loss (Steady weight loss: 7.8% since Sep 2017, 10.9% since Aug 2017: 181.2 lbs 05/03/18, 186.4 lbs 03/26/18, 187.8 bs 02/25/18, 189.4 lbs 12/28/17, 189.4 lbs 11/30/17, 193.6 bs 11/13, 193.4 lbs 10/26/17, 196.6 lbs 10/06/17, 203.4 lbs 09/08/17.) - Eyes Eyes: reports: Vision loss (L side, s/p CVA) - Ears, Nose & Throat Ears, Nose & Throat: denies: Hearing loss - Respiratory Respiratory: denies: Cough, SOB at rest, SOB with exertion - Gastrointestinal Gastrointestinal: denies: Abdominal pain, Nausea - Genitourinary Genitourinary: denies: Dysuria, Frequency - Musculoskeletal Musculoskeletal: reports: Joint pain (denies pain currently, but son has reported chronic pain in bilat hips, on L side due to hemiparesis s/p CVA) - Neurological Neurological: reports: Focal weakness (left side hemiparesis) - Psychiatric Psychiatric: reports: Depression (on mirtazapine), Anxiety (h/o social anxiety, not comfortable in crowds) - Endocrine Endocrine: reports: Diabetes type 2, Intolerance to cold (chronic complaints of feeling cod) Physical Exam - Vital Signs Temperature: 96.1 F Pulse Rate: 51 O2 Saturation: 95 (room air) Blood Pressure: 136/51 (wrist cuff) - Physical Exam General Appearance: positive: No acute distress, Other (drowsy due to being woken from her morning nap) Eyes Bilateral: positive: EOMI, No lid inflammation, Conjunctivae nml, No scleral icterus ENT: positive: No signs of dehydration Neck: positive: Trachea midline Cardiovascular: positive: Regular rate & rhythm, No murmur, No gallop Respiratory: positive: Chest non-tender, No respiratory distress Abdomen: positive: Non-tender, Soft, Nml bowel sounds Skin: positive: No symptoms, Pressure wound (R heel, managed by Home Health nursing, resolving) Neurologic/Psychiatric: positive: Mood/affect nml, Disoriented to time Palliative Care - POLST Patient has POLST: Yes POLST Status: DNR, Comfort Measures - Palliative Care Discussion: Patient reports her quality of life is "so so." When I asked her what would make her life better, she said, "To not be so fat." Had a long discussion with patient about her weight and her steady weight loss. Someone (or one's) have told her she was fat, and it made her "feel bad." Her mother was on her about her weight while she was growing up. At one point she said she needed to lose 15 lbs. I repeated that she has lost 15-16 pounds, she is not fat and should not lose anymore weight. Later she asked how much weight should she lose. I said none, and she responded, "That is music to my ears." It is unclear whether her steady weight loss is debility and related to the dementia/ depression, or stems from this lifelong perception of being fat, or both. I spoke with the daughter in law prior to my visit, and left a voicemail afterwards, about reinforcing the message that she has already lost the weight she said she wanted to lose. Daughter in law noted at the last visit that the patient was at a different table in the dining room, with a resident who was more alert and articulate, with less advanced dementia. The patient appeared brighter and happier and so her [id number] was wondering if the facility could try to match her with other residents who are more sociable and able to interact. Goals of care have been expressed by family and are to keep her comfortable, cared for and safe, let nature take its course, and no transfer to hospital Impression and Recommendations - Palliative Care Impression: This is a elisha 82-year-old woman with advancing dementia and left hemiparesis S/P CVA 1 year ago living at [facility]. She is being followed by home health nursing for a right heel pressure wound which is resolving. She has had steady weight loss of 10% since August, which could be related to a lifelong struggle with perceptions of "being fat." Palliative care will continue to provide oversight and support with transition to hospice when criteria are met. Recommendations/Counseling Done: Dementia without behaviors: Stable within a context of steady cognitive and functional decline over the past year. Patient still has a wry sense of humor and is articulate. Weight loss: Steady weight loss: 7.8% z(15.4 lbs) since Sep 2017, 10.9% (22.2 lbs) since Aug 2017: 181.2 lbs 05/03/18, 196.6 lbs 10/06/17, 203.4 lbs 09/08/17. Patient is on mirtazapine, which can help stimulate appetite, but she also has a lifelong perception of being "fat." She stated she needed to lose 15 lbs, and was delighted to hear that she had lost that amount, and didn't need to lose any more. Asked nursing to monitor and remind her that she "lost weight," and family too. Left-sided hemiparesis S/P CVA: Stable, continue Tylenol 650 3 times daily routine for structural pain and Tylenol as needed. Constipation: controlled with MiraLAX twice daily, half dose. DM 2: Stable. Continue Lantus 10 units daily. Fasting BGs range from 80s to low 100s. R heel pressure wound: Resolving. Patient resists wound care when awake, nursing is able to provide the wound care most of time while patient is sleeping and this is working well. Facility nursing will monitor, if the patient 's resistance becomes a problem, will discuss with DUST COLLECTOR the addition of pain medication prior to wound care, but at present, that is not indicated. Advanced care planning: Comfort and focus on quality of life. Let nature take its course, no transfer to hospital. Follow up 4-6 weeks and as needed. Time Spent: 40 minutes were spent with more than 50% of this time spent in counseling, education, and coordination of care.
== END 2018-05-25 14:58 | disposition home or self-care (01) ==
LOC: PC 14:57
PROVIDERS: ATTEND Nurse Practitioner
DX: Z51.5 Encounter for palliative care (principal); F03.90 Unspecified dementia, unspecified severity, without behavioral disturbance, psychotic disturbance, mood disturbance, and anxiety; R63.4 Abnormal weight loss; I69.354 Hemiplegia and hemiparesis following cerebral infarction affecting left non-dominant side; E11.22 Type 2 diabetes mellitus with diabetic chronic kidney disease; E11.42 Type 2 diabetes mellitus with diabetic polyneuropathy; I12.9 Hypertensive chronic kidney disease with stage 1 through stage 4 chronic kidney disease, or unspecified chronic kidney disease; N18.3 Chronic kidney disease, stage 3 (moderate); Z79.4 Long term (current) use of insulin; Z99.3 Dependence on wheelchair; Z79.01 Long term (current) use of anticoagulants; Z66 Do not resuscitate

== ENCOUNTER 2018-06-02 13:51 | Outpatient (CLI) | payer MEDICARE, OTHER ==
--- NOTE | 2018-06-02 16:09 | CONSULTATION NOTE ---
Palliative Care Follow Up - Referral Referring Provider: Dr Juan Antonio Carrasquillo Time of Visit: 06/02/2018. 11:15 - 11:30 Referral setting: Adult Family Home (Seen in home setting due to taxing and considerable effort required to leave the home due to immobility and wheelchair bound from left sided weakness secondary to CVA.) Referral Reason: Face to face for wheelchair - History of Present Illness Update Brief HPI Update: -Pleasant 82-year-old woman with advancing dementia and L hemiparesis following a CVA a year ago, originally at [facility], now living at [facility]. Her R heel wound is being managed by Home Health nursing. -Medical history: Dementia without behaviors, CVA with residual L side hemiparesis x 1 year; atrial fibrillation on anticoagulation, CKD III, HLD, HTN , DM II with insulin dependence, diabetic peripheral neuropathy, R heel pressure wound Stage III, osteoarthritis. -Face to Face for Tilt in Space Wheelchair: Due to immobility and left-side hemiparesis as a result of CVA, patient is completely non-ambulatory inside the home setting ([facility] dementia unit), as well as outside of the home setting. As a result of her non-ambulatory status , patient is therefore unable to accomplish all mobility-related aids to daily living activities, such as toileting, feeding, bathing and grooming wihtout the assistance of a wheelchair due to left-sided hemiparesis and immobility. Due to the effects of left-sided hemiparesis, the patient is completely incapable of using a cane or walker inside the home. The patient will be reliant upon a wheelchair to accomplish all mobility related aids to daily living in the home setting, such as toileting, feeding, bathing and grooming. Patient has not expressed an unwillingness to use the wheelchair and patient does not have sufficient upper extremity function to safely propel a wheelchair , but has caregiver assistance who is able to assist with the wheelchair propulsion. The use of a wheelchair will significantly improve patient's ability to succesfully participate in her MRADLs (grooming, bathing, feeding and toileting) and as a result, patient's functional mobility deficits will be resolved. See Occupational Therapy visit notes for further details. Social History - Living Situation Living arrangement: Assisted living ([facility] dementia unit) Living Situation: With caregiver(s) Support System: Faisal/Carlos AGARWAL, visits every other week with his Lizzette, they live [place]. Patient's other son, Nima, lives in the patient's house. Medications/Allergies - Medications Home Medications: Ambulatory Orders Medication Instructions Recorded Confirmed Acetaminophen 650 mg PO TID PRN 01/11/18 05/26/18 Atorvastatin Calcium 20 mg PO QPM 01/11/18 05/26/18 Bethanechol Chloride 20 mg PO QID 01/11/18 05/26/18 Gabapentin 300 mg PO BID 01/11/18 05/26/18 Insulin Glargine [Lantus Solostar] 10 units SQ DAILY 01/11/18 05/26/18 Mirtazapine 7.5 mg PO DAILY 01/11/18 05/26/18 Polyethylene Glycol 3350 [Miralax] 8.5 oz PO BID 01/11/18 05/26/18 Tamsulosin [Flomax] 0.4 mg PO DAILY 01/11/18 05/26/18 Acetaminophen 650 mg PO Q6H PRN 03/24/18 05/26/18 Docusate Sodium 100 mg PO BID 03/24/18 05/26/18 Warfarin Sodium 1.25 mg PO .MON, Tue03/24/18 05/26/18 Warfarin Sodium 2.5 mg PO .T,W,TH,S,S 03/24/18 05/26/18 - Allergies Allergies/Adverse Reactions: Allergies Allergy/AdvReac Type Severity Reaction Status Date / Time Sulfa (Sulfonamide Allergy Unknown Verified 02/26/18 19:57 Antibiotics) Review of Systems - Constitutional Constitutional: reports: Weakness, Weight loss (Small weight gain this past month of 1 kilo after a previous weight loss of 7.8% since Sep 2017, 10.9% since Aug 2017: 183.4 lbs 05/30/18. 181.2 lbs 05/03/18, 186.4 lbs 03/26/18, 187.8 bs 02/25/18, 189.4 lbs 12/28/17, 189.4 lbs 11/30/17, 193.6 bs 11/13, 193.4 lbs 10/26/17 , 196.6 lbs 10/06/17, 203.4 lbs 09/08/17.) - Eyes Eyes: reports: Vision loss (L side s/p CVA) - Ears, Nose & Throat Ears, Nose & Throat: denies: Hearing loss - Cardiovascular Cardiovascular: denies: Chest pain - Respiratory Respiratory: denies: Cough, SOB at rest - Gastrointestinal Gastrointestinal: denies: Constipation - Musculoskeletal Musculoskeletal: reports: Joint pain (chronic bilateral hip pain and on L side, hemiparesis s/p CVA, previously reported by son), Assistive devices (wheelchair bound) - Neurological Neurological: reports: Focal weakness (L side hemiparesis) - Psychiatric Psychiatric: reports: Depression (on mirtazapine), Anxiety (h/o social anxiety, not cofortable in crowds). denies: Behavior disturbances - Endocrine Endocrine: reports: Diabetes type 2 (Controlled with Lantus), Intolerance to cold (chronic complaints of feeling cold) Physical Exam - Vital Signs Temperature: 96.4 F Pulse Rate: 51 O2 Saturation: 95 (room air) Blood Pressure: 143/65 (wrist cuff) - Physical Exam General Appearance: positive: No acute distress, Alert Eyes Bilateral: positive: EOMI, No lid inflammation, Conjunctivae nml, No scleral icterus ENT: positive: No signs of dehydration Neck: positive: Trachea midline Cardiovascular: positive: Regular rate & rhythm, No murmur, No gallop Respiratory: positive: Chest non-tender, No respiratory distress. negative: Rales Skin: positive: Pressure wound (stage I on coccyx) Extremities: positive: No pedal edema Neurologic/Psychiatric: positive: Disoriented to place, Disoriented to time Palliative Care - POLST Patient has POLST: Yes POLST Status: DNR, Comfort Measures Performance Status: Residual L side hemiparesis with LUE pain, from CVA a year ago. Non-ambulatory, confined to wheelchair, requires full assist for transfers and ADLs, incontinent of bowel and bladder. Able to feed herself with cueing. Articulate and speaks in full sentences, maintains eye contact. - Palliative Care Discussion: Patient is pleasant, alert, cooperative, and confabulates secondary to dementia. 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 Impression and Recommendations - Palliative Care Impression: This is a elisha 82-year-old woman with advancing dementia and left hemiparesis S/P CVA one year ago, now living at [facility] dementia unit. She is being followed by home health nursing for wound care and also by Occupational Therapy. Palliative care will continue to provide oversight and support, with transition to hospice when criteria are met. Recommendations/Counseling Done: Left-sided hemiparesis S/P CVA: Recommend [id number] wheelchair for immobility s/p CVA. See Occupational Therapy notes for details. Dementia without behaviors: Stable within a context of steady cognitive and functional decline over the past year. Patient still has a wry sense of humor, is articulate, and confabulatory. Weight loss: Small weight gain this past month of 1 kilo after a previous weight loss of 7.8% since Sep 2017, 10.9% since Aug 2017: 183.4 lbs 05/30/18. 181.2 lbs 05/03/18, 186.4 lbs 03/26/18, 187.8 bs 02/25/18, 189.4 lbs 12/28/17, 189.4 lbs 11/30/17, 193.6 bs 11/13, 193.4 lbs 10/26/17, 196.6 lbs 10/06/17, 203.4 lbs . Patient has a lifelong self-perception as "fat." DM 2: Stable. Continue Lantus 10 units daily. Fasting BGs range from 80s to low 100s. Sacral Stage I pressure wound on coccyx: Managed by HH RN. R heel pressure wound: Resolving. Patient resists wound care when awake, nursing is able to provide the wound care most of time while patient is sleeping and this is working well. Facility nursing will monitor, if the patient 's resistance becomes a problem, will discuss with DRUG DEPARTMENT WORKER the addition of pain medication prior to wound care, but at present, that is not indicated. Advanced care planning: Comfort and focus on quality of life. No transfer to hospital. Follow up 4-6 weeks and as needed. Time Spent: 15 minutes were spent with more than 50% of the time related to coordination of care relating to the need for a wheelchair.
== END 2018-06-02 13:52 | disposition home or self-care (01) ==
LOC: PC 13:51
PROVIDERS: ATTEND Nurse Practitioner
DX: Z51.5 Encounter for palliative care (principal); I69.354 Hemiplegia and hemiparesis following cerebral infarction affecting left non-dominant side; Z99.3 Dependence on wheelchair; F03.90 Unspecified dementia, unspecified severity, without behavioral disturbance, psychotic disturbance, mood disturbance, and anxiety; E11.22 Type 2 diabetes mellitus with diabetic chronic kidney disease; I12.9 Hypertensive chronic kidney disease with stage 1 through stage 4 chronic kidney disease, or unspecified chronic kidney disease; N18.3 Chronic kidney disease, stage 3 (moderate); R63.4 Abnormal weight loss; Z79.4 Long term (current) use of insulin; Z66 Do not resuscitate; Z79.01 Long term (current) use of anticoagulants

== ENCOUNTER 2018-09-14 10:00 | Outpatient (CLI) | payer MEDICARE, OTHER ==
--- NOTE | 2018-09-14 14:19 | CONSULTATION NOTE ---
Palliative Care Follow Up - Referral Referring Provider: Dr Garcia Time of Visit: 09/14/2018. 10:00 - 10:15 Referral setting: Assisted living (Seen in home setting due to taxing and considerable effort required to leave the home due to immobility and wheelchair bound from left sided weakness secondary to CVA.) Referral Reason: Dementia, declining functionality - Information Sources Records reviewed: RN notes reviewed History/Review of Systems obtained from: Family, Nursing Exam limitations: Clinical condition (dementia; lethargy/somnolence) - History of Present Illness Update Brief HPI Update: -Pleasant 82-year-old woman with advancing dementia and declining functionality, with L hemiparesis following a CVA a year ago. She lives at [facility]. -Medical history: Dementia without behaviors, CVA with residual L side hemiparesis x 1 year; atrial fibrillation on anticoagulation, CKD III, HLD, HTN, DM II with insulin dependence, diabetic peripheral neuropathy, R heel pressure wound Stage III, osteoarthritis. Patient has continued to decline cognitively and functionally. She spends much of her time sleeping either in her wheelchair or in her bed. Staff did report she sang along with Marta diane this week, a departure from her usual listlessness. She appears depressed; on good days she talks to people, but she has more bad days than good days per staff. She doesn't usually participate in activities, she falls asleep. During today's visit she was upright in her [id number] wheelchair, somnolent, eyes remained shut. She provided only minimal response to my questions and conversation. She did rouse and open her eyes when a familiar engraver wood encouraged her to respond. Otherwise she remained somnolent and non-participatory. Patient was DC'd 08/25/18 from RN service: coccyx and heel wounds resolved. Social History - Living Situation Living arrangement: Assisted living ([facility]) Living Situation: With caregiver(s) Support System: Son/DPOACarlos, visits regularly with his , they live in [place], [place]. Patient's other son, Nima, lives in the patient's house. Medications/Allergies - Medications Home Medications: Ambulatory Orders Medication Instructions Recorded Confirmed Acetaminophen 650 mg PO TID PRN 01/11/18 09/14/18 Atorvastatin Calcium 20 mg PO QPM 01/11/18 09/14/18 Bethanechol Chloride 20 mg PO QID 01/11/18 09/14/18 Gabapentin 300 mg PO BID 01/11/18 09/14/18 Insulin Glargine [Lantus Solostar] 10 units SQ DAILY 01/11/18 09/14/18 Mirtazapine 7.5 mg PO DAILY 01/11/18 09/14/18 Polyethylene Glycol 3350 [Miralax] 8.5 oz PO BID 01/11/18 09/14/18 Tamsulosin [Flomax] 0.4 mg PO DAILY 01/11/18 09/14/18 Acetaminophen 650 mg PO Q6H PRN 03/24/18 09/14/18 Docusate Sodium 100 mg PO BID 03/24/18 09/14/18 Warfarin Sodium 2.5 mg PO .T,W,TH,F,S,S 03/24/18 09/14/18 Warfarin Sodium 5 mg PO .MON 03/24/18 09/14/18 - Allergies Allergies/Adverse Reactions: Allergies Allergy/AdvReac Type Severity Reaction Status Date / Time Sulfa (Sulfonamide Allergy Unknown Verified 02/26/18 19:57 Antibiotics) Review of Systems - Constitutional Constitutional: reports: Fatigue, Weight loss (175.2 lbs 08/30/18. 169.8 lbs 07/29/18. 186 lbs 07/01/18. 183.4 lbs 05/30/18. 181.2 lbs 05/03/18, 186.4 lbs 03/26/18, 187.8 bs 02/25/18, 189.4 lbs 12/28/17, 189.4 lbs 11/30/17, 193.6 bs 11/13, 193.4 lbs 10/26/17, 196.6 lbs 10/06/17, 203.4 lbs 09/08/17.) - Eyes Eyes: reports: Vision loss (L side s/p CVA) - Ears, Nose & Throat Ears, Nose & Throat: denies: Hearing loss - Cardiovascular Cardiovascular: denies: Edema - Respiratory Respiratory: denies: Cough - Gastrointestinal Gastrointestinal: denies: Constipation - Genitourinary Genitourinary: reports: Incontinence (bowel and bladder) - Musculoskeletal Musculoskeletal: reports: Assistive devices (tilt in space wheelchair), Transfer issues, Other (can't hold torso erect without support) - Neurological Neurological: reports: Memory problems - Psychiatric Psychiatric: reports: Depression - Other Findings Other Findings: Limited ROS, patient somnolent. Information from caregivers. Physical Exam - Vital Signs Temperature: 96.6 F Pulse Rate: 58 O2 Saturation: 99 Blood Pressure: 153/66 - Physical Exam General Appearance: positive: No acute distress, Lethargic Eyes Bilateral: positive: No lid inflammation, Conjunctivae nml, No scleral icterus ENT: positive: No signs of dehydration Neck: positive: Trachea midline Cardiovascular: positive: Regular rate & rhythm, No murmur, No gallop Respiratory: positive: Chest non-tender, No respiratory distress, Diminished throughout (body habitus) Abdomen: positive: Non-tender, Nml bowel sounds, Abnml bowel sounds Skin: positive: No symptoms Extremities: positive: Nml appearance, No pedal edema Neurologic/Psychiatric: positive: Disoriented to place, Disoriented to time, Flat affect Palliative Care - POLST Patient has POLST: Yes POLST Status: DNR, Comfort Measures Performance Status: Dori lift for transfers Tilt in space wheelchair, unable to hold torso erect Excessive sleeping Incontinent bowel and bladder - Palliative Care Discussion: Patient is steadily declining. She is sleeping or lethargic most times that I see her. In April she spoke with me, and at the May visit as well. This visit I didn't succeed in rousing her or getting her involved in the assessment. Her son Carlos has previously stated that "she would never want to be like this." His stated goals of care are to keep her comfortable, cared for and safe, and allow nature to take its course. He does not want her transferred to hospital. I did speak very briefly with his who was at work when I called, providing her the update and that patient is stable although declining. Impression and Recommendations - Palliative Care Impression: 82-year-old woman with advancing dementia and declining functionality with left hemiparesis S/P CVA one year ago. nursing DC'd her 08/25/18 from wound care. Palliative care will continue to provide oversight and support, with transition to hospice when criteria are met. Family does not want her transferred to Hospital. Recommendations/Counseling Done: Left-sided hemiparesis S/P CVA: [id number] wheelchair for immobility s/p CVA. Dementia without behaviors: Continued slow and steady cognitive, functional decline over the past year. Patient somnolent today, and sleeps most of the time. She was enjoying the [employer] earlier this week.. Weight loss: Current weight is 175.2 lbs on 08/30/18. A year ago she weighed 203.4 lbs, she's steadily declined since then and dropped as low as 169.8 lbs on 07/29/18. DM 2: Stable on Lantus 10 units daily. Fasting BGs range from 80s to low 100s, today was 96. Sacral Stage I pressure wound on coccyx and R heel wound: Resolved, Home Health RN discharged her on 08/25/18. Toenail loss: Both great toenails fell off, she was seen by supervisor silvering department, they are growing back. Advanced care planning: Comfort and focus on quality of life. No transfer to hospital. Follow up as needed. Time Spent: 15 minutes were spent with more than 50% of the time spent on counseling and coordination of care.
== END 2018-09-14 10:01 | disposition home or self-care (01) ==
LOC: PC 10:00
PROVIDERS: ATTEND Nurse Practitioner
DX: Z51.5 Encounter for palliative care (principal); I69.954 Hemiplegia and hemiparesis following unspecified cerebrovascular disease affecting left non-dominant side; I12.9 Hypertensive chronic kidney disease with stage 1 through stage 4 chronic kidney disease, or unspecified chronic kidney disease; E11.22 Type 2 diabetes mellitus with diabetic chronic kidney disease; N18.3 Chronic kidney disease, stage 3 (moderate); F03.90 Unspecified dementia, unspecified severity, without behavioral disturbance, psychotic disturbance, mood disturbance, and anxiety; E11.42 Type 2 diabetes mellitus with diabetic polyneuropathy; R63.4 Abnormal weight loss; M19.90 Unspecified osteoarthritis, unspecified site; R15.9 Full incontinence of feces; R32 Unspecified urinary incontinence; I48.0 Paroxysmal atrial fibrillation; Z99.3 Dependence on wheelchair; Z66 Do not resuscitate; Z79.01 Long term (current) use of anticoagulants; Z79.4 Long term (current) use of insulin

== ENCOUNTER 2018-10-30 14:30 | Outpatient (CLI) | payer MEDICARE, OTHER ==
--- NOTE | 2018-10-30 19:51 | CONSULTATION NOTE ---
Palliative Care Follow Up - Referral Referring Provider: Dr. 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 She presented on Tuesday with some complaints of itching, Tuesday had an outbreak of a vesicular rash, mostly involving the right upper thoracic back area, with several large areas of converging moist areas 3 X 5 cm, with a few satellite lesions across her right breast. She denies any pain or distress. She reports she often gets "moisture" under her breasts with with her "bra", has picked at larger vesicule with scabbed 1 cm area. Some erythema. It does follow a dermatome on pattern, and has erupted in less than 72 hours, will go ahead and treat with valacyclovir. Patient has continued to decline cognitively, is more withdrawn, [id number] reports did not recognize her though did recognize her son. She is able to engage in conversation, though is thinking she is in her mother's house. She has been sleeping more. She has had no acute infections recently. Awaiting correct weight, patient has had slow weight loss over the last several months. Patient's past medical history includes atrial fib on anti-coag, CKD stage III, hyperlipidemia, hypertension, diabetes type 2 on very low dose of insulin, diabetic peripheral neuropathy on gabapentin, and osteoarthritis. Patient's been seen in the past by home health RN for stage III decub on her right heel, now closed Social History - Living Situation Living arrangement: Assisted living (Patient lives in [facility]) Support System: Son Carlos and his Lizzette visit her on a regular basis, and do oversee her care. Medications/Allergies - Medications Home Medications: Ambulatory Orders Medication Instructions Recorded Confirmed Acetaminophen 650 mg PO TID 01/11/18 10/31/18 Atorvastatin Calcium 20 mg PO QPM 01/11/18 10/31/18 Bethanechol Chloride 20 mg PO QID 01/11/18 10/31/18 Gabapentin 300 mg PO BID 01/11/18 10/31/18 Insulin Glargine [Lantus Solostar] 10 units SQ DAILY 01/11/18 10/31/18 Mirtazapine 7.5 mg PO DAILY 01/11/18 10/31/18 Polyethylene Glycol 3350 [Miralax] 8.5 oz PO BID 01/11/18 10/31/18 Tamsulosin [Flomax] 0.4 mg PO DAILY 01/11/18 10/31/18 Acetaminophen 650 mg PO Q6H PRN MDD 3000 mg 03/24/18 10/31/18 Docusate Sodium 100 mg PO BID 03/24/18 10/31/18 Warfarin Sodium 2.5 mg PO .T,W,TH,F,S,S 03/24/18 10/31/18 Warfarin Sodium 5 mg PO .MON 03/24/18 10/31/18 Valacyclovir HCl [Valacyclovir] 1,000 mg PO TID MDD 7 days 10/31/18 10/31/18 - Allergies Allergies/Adverse Reactions: Allergies Allergy/AdvReac Type Severity Reaction Status Date / Time Sulfa (Sulfonamide Allergy Unknown Verified 02/26/18 19:57 Antibiotics) Review of Systems - Constitutional Constitutional: reports: Fatigue. denies: Fever - Eyes Eyes: reports: Vision loss - Ears, Nose & Throat Ears, Nose & Throat: reports: Hearing loss - Gastrointestinal Gastrointestinal: denies: Constipation - Genitourinary Genitourinary: reports: Incontinence - Musculoskeletal Musculoskeletal: reports: Limited range of motion (LUE hemiplegia), Muscle weakness, Transfer issues (dori lift transfer into tilt in space wheelchair) - Integumentary Integumentary: reports: Rash (c/o itching Tuesday; rash noted Tuesday), Dryness, Other (Coccyx with pressure sore) - Neurological Neurological: reports: General weakness, Memory problems - Psychiatric Psychiatric: reports: Depression, Delusions - Endocrine Endocrine: reports: Diabetes type 2 - All Other Systems All Other Systems: reports: Other (limited ROS) Physical Exam - Vital Signs Temperature: 97.0 C Pulse Rate: 50 Respiratory Rate: 18 O2 Saturation: 95 (ra @ rest) Blood Pressure: 132/72 - Physical Exam General Appearance: positive: Mild distress, Anxious Eyes Bilateral: positive: Normal inspection Neck: positive: Trachea midline Cardiovascular: positive: Irregularly irregular, Bradycardia Respiratory: positive: No respiratory distress, Diminished in bases. negative: Wheezes Abdomen: positive: Non-tender, Soft, Nml bowel sounds Skin: positive: Rash (see HPI), Pressure wound (coccyx small open area 1 cm/scarred wtih eschar) Extremities: positive: No pedal edema Neurologic/Psychiatric: positive: Disoriented to person, Disoriented to place, Disoriented to time, Weakness, Flat affect Palliative Care - POLST Patient has POLST: Yes POLST Status: DNR, Comfort Measures Pain: Pain unchanged Drowsiness/Sedation: Moderate (4-6) Constipation: No, Managed Performance Status: Patient is dependent for all ADLs, requires a Dori lift transfer to her tilt in space wheelchair. Patient does spend a significant amount of time in her bed, she has been more tired and sleeping more per staff report - Palliative Care Discussion: Follow-up with Lizzette [id number] regarding findings for shingles, comfort measure to treat with the hope to decrease and aid time and healing When asked patient what she was most worried about, she reports she is worried about her sons and who they are "hanging out with". Denies any distress, denies pain or able to identify anything that could make things better. She does perceive she is in her mother's home, is able to engage in conversation, but nonsensical and answers. ADDENDUM 2/5 Spoke with Lizzette, who will share with her regarding goals of care to focus on quality of life issues. Discussed rationale for stopping the insulin, as well as doubling the mirtazapine with the goal to improve quality of life not extend her suffering or quantity of life. Will evaluate response and revisit next week for further adjustments regarding goals of care Impression and Recommendations - Palliative Care Impression: This is an 83-year-old woman who presents with vesicular rash along her right thoracic dermatomes, does not appear in acute distress has been less than 72 hours we will go ahead and treat for herpes zoster. She has advancing dementia, has declined functionally and cognitively with her left hemiparesis status post CVA 1 year ago. She continues with intermittent skin issues, depression, and increased somnolence. Recommendations/Counseling Done: 1. Herpes zoster/shingles. Patient's rash erupted less than 72 hours, patient will still qualify and benefit from valacyclovir 1000 mg 3 times daily, instructed staff to give as soon as available from [facility]. Instructed to keep ration area clean and dry, and covered until lesions are dry. Patient does not present with any acute pain, is already on 3 times daily dosing for acetaminophen. Will evaluate for further signs or symptoms of distress. 2. Left-sided hemiparesis left upper extremity. Patient is in tilt in space, requires Dori lift. Does appear to have increasing contracture on her left side, with increased discomfort with any kind of passive range of motion. Patient has been noncompliant with splint in the past. 3.Diabetes type 2. Patient's blood sugars continue to be quite low, she is only on Lantus 10 units daily. 4. Sacral stage I1 pressure wound on coccyx. Patient on pressure relief mattress, they are using barrier cream for management. Patient is incontinent of very strong urine, suspect this is adding to ongoing issues. Staff are going to continue to monitor. 5. Dementia. Patient continues with slow and steady cognitive decline, she does tend to confabulate, is disoriented x3. She is sleeping more, will change mirtazapine to nighttime dosing. 6. Weight loss. ADDENDUM; got weight today of 165; down from 10/21 177.2. Will discontinue Lantus, check blood sugars for a week, double mirtazipine to 15 mg and change to night time dosing secondary to sedation. Time Spent: 45 minutes with getting 50% of this done in counseling regarding coordination of care with staff for management of herpes zoster, symptom management, and coordination and follow-up on weight loss.
== END 2018-10-30 14:31 | disposition home or self-care (01) ==
LOC: PC 14:30
PROVIDERS: ATTEND Nurse Practitioner Adult Health
DX: Z51.5 Encounter for palliative care (principal); B02.9 Zoster without complications; I69.334 Monoplegia of upper limb following cerebral infarction affecting left non-dominant side; E11.22 Type 2 diabetes mellitus with diabetic chronic kidney disease; E11.42 Type 2 diabetes mellitus with diabetic polyneuropathy; L89.152 Pressure ulcer of sacral region, stage 2; R32 Unspecified urinary incontinence; F01.50 Vascular dementia, unspecified severity, without behavioral disturbance, psychotic disturbance, mood disturbance, and anxiety; R63.4 Abnormal weight loss; I69.319 Unspecified symptoms and signs involving cognitive functions following cerebral infarction; I48.91 Unspecified atrial fibrillation; I12.9 Hypertensive chronic kidney disease with stage 1 through stage 4 chronic kidney disease, or unspecified chronic kidney disease; N18.3 Chronic kidney disease, stage 3 (moderate); F32.9 Major depressive disorder, single episode, unspecified; Z79.01 Long term (current) use of anticoagulants; Z79.4 Long term (current) use of insulin; Z79.899 Other long term (current) drug therapy; Z99.3 Dependence on wheelchair; Z66 Do not resuscitate

== ENCOUNTER 2018-11-06 11:45 | Outpatient (CLI) | payer MEDICARE, OTHER ==
--- NOTE | 2018-11-06 20:47 | CONSULTATION NOTE ---
Palliative Care Follow Up - Referral Referring Provider: Dr. Juan Antonio Garcia Time of Visit: [id number] Referral setting: Assisted living (seen at [facility]) Referral Reason: Herpes Zoster/Dementia - Information Sources Records reviewed: Previous records reviewed History/Review of Systems obtained from: Caregiver Exam limitations: Clinical condition (patient with advanced dementia) - History of Present Illness Update Brief HPI Update: This is an 83-year-old woman with advancing dementia, attributed to her CVA with left hemiparesis paresis almost 2 years ago. Patient is continued to deteriorate, she presented last Tuesday with complaints of itching, Tuesday had a outbreak of vesicular rash. She has been on valacyclovir 1000 mg 3 times daily, I am seeing her in follow-up to make sure it is healing. Patient tends to scratch and did get at her wounds, currently though patient without any signs or symptoms of infection. Does appear to be healing. Most vesicles on the back are dried, small scabbed area on front. Patient has been on contact precautions, is isolated in her room. They are bringing meals to her, but not getting her up in her wheelchair as much. She is continued to decline cognitively, remains withdrawn, she is been sleeping more. She has had less intake, she is tolerating being off her insulin. Her blood sugars continue in normal range of 89-107. 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 Today her complaint is also of tailbone pain, though her stage II decub has filled in since last visit. Social History - Living Situation Living arrangement: Assisted living Living Situation: Alone Support System: Son Carlos is a D POA, his Lizzette a visit on a regular basis. Medications/Allergies - Medications Home Medications: Ambulatory Orders Medication Instructions Recorded Confirmed Acetaminophen 650 mg PO TID 01/11/18 11/07/18 Atorvastatin Calcium 20 mg PO QPM 01/11/18 11/07/18 Bethanechol Chloride 20 mg PO QID 01/11/18 11/07/18 Gabapentin 300 mg PO BID 01/11/18 11/07/18 Mirtazapine 15 mg PO DAILY PM 01/11/18 11/07/18 Polyethylene Glycol 3350 [Miralax] 8.5 oz PO BID 01/11/18 11/07/18 Tamsulosin [Flomax] 0.4 mg PO DAILY 01/11/18 11/07/18 Acetaminophen 650 mg PO Q6H PRN MDD 3000 mg 03/24/18 11/07/18 Warfarin Sodium 2.5 mg PO .T,W,TH,F,S,S 03/24/18 11/07/18 Warfarin Sodium 5 mg PO .MON 03/24/18 11/07/18 Valacyclovir HCl [Valacyclovir] 1,000 mg PO TID MDD 7 days 10/31/18 11/07/18 - Allergies Allergies/Adverse Reactions: Allergies Allergy/AdvReac Type Severity Reaction Status Date / Time Sulfa (Sulfonamide Allergy Unknown Verified 02/26/18 19:57 Antibiotics) Review of Systems - Constitutional Constitutional: reports: Fatigue, Poor appetite, Other (requested weight; patient appears to have continued decreased intake) - Eyes Eyes: reports: Vision loss - Ears, Nose & Throat Ears, Nose & Throat: reports: Hearing loss, Dry mouth (patient snores loudly; some periods of apnea; staff report this has been patients norm for at least the year) - Cardiovascular Cardiovascular: reports: Irregular heart rate - Respiratory Respiratory: denies: SOB at rest - Gastrointestinal Gastrointestinal: reports: Diarrhea, Poor appetite, Early satiety - Genitourinary Genitourinary: reports: Incontinence (strong smelling uringe) - Musculoskeletal Musculoskeletal: reports: Stiffness (left sided), Muscle weakness, Transfer issues (use france for transfer, feeding in bed) - Integumentary Integumentary: reports: Lesions (herpes zoster/shingles right thoracic area-few scattered lesions front), Dryness - Neurological Neurological: reports: General weakness, Memory problems (some replies; less verbal and more lethargic today) Physical Exam - Vital Signs Temperature: 96.7 C Pulse Rate: 72 Respiratory Rate: 18 O2 Saturation: 94 (ra @ rest) Blood Pressure: 110/72 - Physical Exam General Appearance: positive: Lethargic Eyes Bilateral: positive: Normal inspection ENT: positive: Dry mucous membranes (patient snores/mouth breathes; oral care items in room) Neck: positive: No JVD, Trachea midline Cardiovascular: positive: Irregular Respiratory: positive: Diminished in bases. negative: Wheezes, Rales, Rhonchi Abdomen: positive: Soft Skin: positive: Pallor, Dryness, Pressure wound (coccyx pink) Extremities: positive: No pedal edema Neurologic/Psychiatric: positive: Disoriented to person, Disoriented to place, Disoriented to time, Weakness, Flat affect Palliative Care - POLST Patient has POLST: Yes POLST Status: DNR, Comfort Measures Pain: Pain unchanged, Location (left sided discomfort with movement) Tiredness/Fatigue: Moderate (4-6) Drowsiness/Sedation: Moderate (4-6) Performance Status: Patient has been less interactive, needing more assistance with feeding. Patient is moved mostly bedbound this last week, does have a tilt in space wheelchair, is in isolation. Impression and Recommendations - Palliative Care Impression: This is a 83-year-old woman who presented last week with herpes zoster, was started on valacyclovir, lesions are improving. Patient continues to decline, more lethargic, and sleeping more.Care providing support, will continue to monitor for transition to hospice and focus on quality of life issues. Recommendations/Counseling Done: 1.Herpes zoster/shingles. Patient is responding to valacyclovir, vesicles are drying, no signs or symptoms of infection. Did appear to be kept clean and dry, are covered currently as there is still some moisture. Patient does not present with any acute pain, does not seem to be uncomfortable with the lesions. 2. Diabetes type 2. Patient tolerating discontinuation of Lantus, without any symptoms of increased blood sugars. Will discontinue a.m. blood sugars next week if continue within normal range. 3. Sacral stage II pressure wound on coccyx. This does appear still quite uncomfortable for her, she is on a pressure relief mattress but does appear to be healing and filled in. They are using barrier cream for management. 4. Weight loss. Patient does not appear to have increased intake, continues to decline, with increased sedation, anorexia, and ongoing decreased intake, now requiring being fed. Time Spent: 15 minutes with 50% of this done in coordination of care with clinical staff, follow-up on care plan, requesting old bowel meds if patient having loose stools. Plan for next visit readdress goals of care, Coumadin dosing, and continue to evaluate for transition to hospice.
== END 2018-11-06 11:46 | disposition home or self-care (01) ==
LOC: PC 11:45
PROVIDERS: ATTEND Nurse Practitioner Adult Health
DX: Z51.5 Encounter for palliative care (principal); I69.959 Hemiplegia and hemiparesis following unspecified cerebrovascular disease affecting unspecified side; I69.911 Memory deficit following unspecified cerebrovascular disease; L89.609 Pressure ulcer of unspecified heel, unspecified stage; I48.0 Paroxysmal atrial fibrillation; I12.9 Hypertensive chronic kidney disease with stage 1 through stage 4 chronic kidney disease, or unspecified chronic kidney disease; E11.22 Type 2 diabetes mellitus with diabetic chronic kidney disease; N18.3 Chronic kidney disease, stage 3 (moderate); E11.42 Type 2 diabetes mellitus with diabetic polyneuropathy; Z79.01 Long term (current) use of anticoagulants; B02.9 Zoster without complications; L89.152 Pressure ulcer of sacral region, stage 2; R63.4 Abnormal weight loss; Z66 Do not resuscitate

== ENCOUNTER 2018-11-07 12:00 | Outpatient (CLI) | payer MEDICARE, OTHER ==
--- NOTE | 2018-11-07 17:32 | CONSULTATION NOTE ---
Palliative Care Follow Up - Referral Referring Provider: Dr. Juan Antonio Garcia Time of Visit: 12-1300 Referral setting: Assisted living (patient seen at memory care unit; patient is bedbound/w/c it is a taxing and considerable effort for her to leave the facility) Referral Reason: Pneumonia/FTT/Goals of Care - Information Sources Records reviewed: RN notes reviewed, Previous records reviewed History/Review of Systems obtained from: Patient, Caregiver (clinical staff) Exam limitations: Clinical condition (patient with advanced dementia) - History of Present Illness Update Brief HPI Update: This is an 83-year-old woman with advancing dementia, this is attributed to her CVA with left hemiparesis almost 2 years ago. She does have change of condition, she has been deteriorating fairly rapidly for the last couple weeks. She presented with shingles on 10/30. Unfortunately this meant she was confined to her room because of precautions, patient is usually up for meals, with more interaction. She had been fed in her room. She has been sleeping more, was notified by facility that she had a change in condition with increased somnolence, cough, noisy respirations, as well as poor intake. Patient's was seen previous day, with some lethargy, decreased breath sounds in bases, but no respiratory distress or cough at that time. Agreed to see patient urgently. They had patient up to be able to weigh her, she was on 10/31 165 pounds, today she is 159.2. She does present with a moist cough, crackles in the bases, scattered rhonchi anteriorly. Staff reports she has been having watery diarrhea, though they have continued to give her MiraLAX. She is quite fatigued, she was difficult to arouse this morning, she did not eat any breakfast. She is able to make eye contact, but after patient settled back in bed, went back to sleep. She is complaining it seems of tailbone pain, no open area, but quite pink, patient does have a history of a decub suspect there. Patient is quite stiff, seems uncomfortable with repositioning. Remains stiff and and painful on her left side with movement. Her O2 sats are 90%, though she does not appear in respiratory distress at this point in time. Her temp is 97.3, pulse 72, blood pressure elevated at 172/88. Patient presents with symptoms most likely community-acquired pneumonia, staff report patient has not noted any dysphagia or choking, though with patient's management of her secretions it could be aspiration pneumonia as well. Social History - Living Situation Living arrangement: Assisted living Support System: Son and DPO Carlos Graham do oversee patient's care, are decision makers regarding medical decisions his Lizzette is involved as well. Medications/Allergies - Medications Home Medications: Ambulatory Orders Medication Instructions Recorded Confirmed Acetaminophen 650 mg PO TID 01/11/18 11/07/18 Bethanechol Chloride 20 mg PO QID 01/11/18 11/07/18 Gabapentin 300 mg PO BID 01/11/18 11/07/18 Mirtazapine 15 mg PO DAILY PM 01/11/18 11/07/18 Polyethylene Glycol 3350 [Miralax] 8.5 oz PO .HOLD 01/11/18 11/07/18 Tamsulosin [Flomax] 0.4 mg PO DAILY 01/11/18 11/07/18 Acetaminophen 650 mg PO Q6H PRN MDD 3000 mg 03/24/18 11/07/18 Valacyclovir HCl [Valacyclovir] 1,000 mg PO TID MDD last day 10/31/18 11/07/18 Guaifenesin [Tussin] 10 - 20 ml PO Q4HR PRN 11/07/18 11/07/18 LORazepam [Ativan] 0.5 mg PO Q6HR PRN 11/07/18 11/07/18 Morphine Sulfate [Morphine Sulf 2.5 - 5 mg PO .Q2-4 HOURS PRN 11/07/18 11/07/18 Oral (Roxanol)] - Allergies Allergies/Adverse Reactions: Allergies Allergy/AdvReac Type Severity Reaction Status Date / Time Sulfa (Sulfonamide Allergy Unknown Verified 02/26/18 19:57 Antibiotics) Review of Systems - Constitutional Constitutional: reports: Fatigue, Poor appetite, Weight loss (159.2 9 % weight loss since 08/30). denies: Fever - Eyes Eyes: reports: Vision loss - Ears, Nose & Throat Ears, Nose & Throat: reports: Dry mouth - Cardiovascular Cardiovascular: reports: Irregular heart rate. denies: Edema - Respiratory Respiratory: reports: Cough (moist cough), Wheezing, Snoring - Gastrointestinal Gastrointestinal: reports: Diarrhea (patient with frequent stooling last several days;), Poor appetite - Genitourinary Genitourinary: reports: Incontinence - Musculoskeletal Musculoskeletal: reports: Stiffness (left side), Limited range of motion, Muscle weakness, Transfer issues (uses [place] lift; has tilt in space wheelchair/hospital bed pressure relief mattress) - Integumentary Integumentary: reports: Lesions, Dryness - Neurological Neurological: reports: General weakness, Memory problems, Slurred speech - Psychiatric Psychiatric: reports: Depression, Anxiety - All Other Systems All Other Systems: reports: Other (limited ROS) Physical Exam - Vital Signs Temperature: 97.3 C Pulse Rate: 72 Respiratory Rate: 20 O2 Saturation: 90 (ra @ rest) Blood Pressure: 172/88 - Physical Exam General Appearance: positive: Mild distress, Lethargic ENT: positive: Dry mucous membranes (patient with dry fissures on tongue; patient breaths through mouth/snores) Neck: positive: Trachea midline Cardiovascular: positive: Irregularly irregular Respiratory: positive: Diminished in bases, Rhonchi (scattered anteriorly), Other (moist cough) Abdomen: positive: Soft, Tenderness (with palpation) Skin: positive: Pallor, Pressure wound (thinned red coccyx/sacrum; heels intact though puts significant pressure on them) Extremities: positive: No pedal edema Neurologic/Psychiatric: positive: Disoriented to person, Disoriented to place, Disoriented to time, Weakness Palliative Care - POLST Patient has POLST: Yes POLST Status: DNR, Comfort Measures Pain: Location (left sided central pain stroke; tender to touch and turning) - Palliative Care Discussion: Family conference done on phone with Carlos Graham son/D POA and Lizzette Graham [id number]. Had talked to Lizzette from patient's room at facility, regarding goals of care. Presented the options, she is going to share them with Carlos and have Carlos call me when he got home. Reviewed the options again together on speaker phone, regarding patient could be treated with antibiotics, most likely has community-acquired/aspiration pneumonia and see if patient responded. Patient is having increased difficulty with swallowing, decreased intake, may or may not respond positively. Option to send her to the hospital for more aggressive intervention and treatment, or if consistent with goals of care, and focus of comfort, can choose not to treat, discontinue medications at the than those needed for comfort and transition to hospice. Carlos appropriately tearful, reviewed as far as mother's quality of life, has continued to deteriorate, felt like she has mentally taken a dive over the last couple weeks, we did discuss in the context of her shingles, weight loss, cognitive and functional decline, most likely would only be extending her suffering if she was to respond at all. In the context of this decision was made to transition to hospice. Did ask about her other son Nima. Feels like he is significantly more emotionally fragile, they will talk to him, but he is not involved in the decision-making. Update and consult with hospice site medical director Dr. Osorio, have agreed to take her, even if they had picked him to continue on with antibiotics. Discussion was made weighing benefits of burdens regarding her current interventions, will discontinue the Coumadin, protimes, atorvastatin, and initiate comfort medications. Comfort medications were reviewed which include Lorazepam and morphine for respiratory distress, they did verbalize understanding Impression and Recommendations - Palliative Care Impression: This is an 83-year-old woman with advanced dementia, with multiple comorbidities including atrial fib, CKD stage III, hypertension, diabetes, CVA with left hemiparesis, and osteoarthritis. She presented last week with herpes zoster, today she presents with signs and symptoms of community-acquired pneumonia. Given patient's ongoing functional and cognitive decline, family conference over phone was provided, decision has been made to transition to hospice and focus on comfort. Recommendations/Counseling Done: 1. Community-acquired pneumonia. Prescription written for guaifenesin to assist with cough, patient does have moist cough does seem bothersome to patient. Prescription also written for morphine 2.5-5 mg every 2 to 4 hours for respiratory distress. Oxygen currently satting at 90% down from 94% yesterday. Follow-up with hospice requested oxygen for comfort, patient is a mouth breather, patient is not in respiratory distress at time of visit. Decision has been made to transition to comfort measures. 2. Diarrhea. Most likely culprit is valacyclovir, though does not list as a side effect. Have discontinued MiraLAX and do good thought which were being continued to be given. 3. Anorexia/weight loss. This is multifactorial in origin. Given patient's lethargy and decreased responsiveness, orders were written for offering food and fluid for comfort, hold medications if patient unable to swallow safely. 4. Urinary incontinence. Reviewed with staff, patient has had longtime history of urinary retention, will leave medications of tamsulosin and bethanechol chloride as long as patient still able to swallow. Patient may require Madison catheter for management for end of life. 5. Stage I coccyx and sacrum. Patient has been mostly bedbound for the last week, patient is quite stiff and often wiggles after repositioning. Patient is on a pressure relief mattress, will need continuing monitoring. 6. Advanced care planning family conference regarding goals of care, decision is made to focus on comfort, nonessential medications were discontinued, referral to hospice made via primary care provider Dr. Garcia has been notified of patient's decline and family's wishes. Counseling provided regardi hospice support in facility, follow-up with regarding plan of care and family's decision, orders written for comfort medications. Hospice referral pending, at this point in time is scheduled for . Time Spent: Time spent 60 minutes with greater than 50% of this done in counseling and coordination of care with staff, evaluation and clarification of goals of care as well as coordination with primary care provider and hospice team
== END 2018-11-07 12:01 | disposition home or self-care (01) ==
LOC: PC 12:00
PROVIDERS: ATTEND Nurse Practitioner Adult Health
DX: Z51.5 Encounter for palliative care (principal); I69.959 Hemiplegia and hemiparesis following unspecified cerebrovascular disease affecting unspecified side; I69.911 Memory deficit following unspecified cerebrovascular disease; J18.9 Pneumonia, unspecified organism; R19.7 Diarrhea, unspecified; R63.4 Abnormal weight loss; R63.0 Anorexia; R32 Unspecified urinary incontinence; B02.9 Zoster without complications; L89.151 Pressure ulcer of sacral region, stage 1; I12.9 Hypertensive chronic kidney disease with stage 1 through stage 4 chronic kidney disease, or unspecified chronic kidney disease; E11.22 Type 2 diabetes mellitus with diabetic chronic kidney disease; N18.3 Chronic kidney disease, stage 3 (moderate); E11.42 Type 2 diabetes mellitus with diabetic polyneuropathy; I48.0 Paroxysmal atrial fibrillation; Z66 Do not resuscitate; Z79.891 Long term (current) use of opiate analgesic